=== PATIENT | male | born 1930 | race Caucasian/White ===

== ENCOUNTER 2016-08-26 02:49 | Inpatient (IN) | payer OTHER, BC ==
[2016-08-26 03:03] VITALS: BMI 24.4
--- NOTE | 2016-08-26 03:20 | PDOC ---
History of Present Illness - General History Source: Patient Exam Limitations: No Limitations - History of Present Illness Initial Comments: 08/26/16 03:57 The patient is an 86-year-old male, with a significant past medical history of asthma, CAD, HTN, and hypercholesterolemia, who presents to the ED with 3 days of sore throat, cough, chest congestion, and shortness of breath. Patient was placed on Z-Bert by PCP. Pt states that he decided to report to the ED today due to worsening shortness of breath. He also reports experiencing diarrhea, nausea , and vomiting. The patient denies any fever, chills, or abdominal pain. <Sury Noel - Last Filed: 08/26/16 06:56> - General History Source: Patient <Noel Molina - Last Filed: 08/29/16 20:21> - General Chief Complaint: Shortness of Breath Stated Complaint: SOB Time Seen by Provider: 08/26/16 03:05 Past History <Sury Noel - Last Filed: 08/26/16 06:56> - Past Medical History Anemia: No Asthma: Yes Cancer: No Cardiac Disorders: Yes (CAD) CVA: No COPD: No CHF: No Dementia: No Diabetes: No GI Disorders: Yes (POLYPS) Disorders: Yes (BPH) HTN: Yes Hypercholesterolemia: Yes Liver Disease: No Seizures: No Thyroid Disease: No - Surgical History Abdominal Surgery: Yes (RT INGUINAL HERNIA) Appendectomy: No Cardiac Surgery: Yes (STENTING X2/AORTIC ANEURSYM REPAIR) Cholecystectomy: No Lung Surgery: No Neurologic Surgery: No Orthopedic Surgery: No - Immunization History Immunization Up to Date: Yes (flu and pneumonia) - Psycho/Social/Smoking Cessation Hx Anxiety: No Suicidal Ideation: No Smoking Status: Yes Smoking History: Never smoked Have you smoked in the past 12 months: No Number of Cigarettes Smoked Daily: 6 If you are a former smoker, when did you quit?: MAR 2014 Cigars Per Day: 6 Information on smoking cessation initiated: No 'Breaking Loose' booklet given: 06/17/13 Hx Alcohol Use: No Drug/Substance Use Hx: No Substance Use Type: None Hx Substance Use Treatment: No <Noel Molina - Last Filed: 08/29/16 20:21> - Past Medical History Allergies/Adverse Reactions: Allergies Allergy/AdvReac Type Severity Reaction Status Date / Time Penicillins Allergy Mild ITCHING/KAYLEE Verified 08/26/16 03:01 H Home Medications: Ambulatory Orders Aspirin [ASA -] 81 mg PO DAILY 11/28/14 Atorvastatin Ca [Lipitor] 40 mg PO HS 11/28/14 Losartan Potassium 25 mg PO DAILY 11/28/14 Metoprolol Succinate [Toprol XL -] 25 mg PO DAILY 11/28/14 Omeprazole 20 mg PO DAILY 11/28/14 Tamsulosin HCl [Flomax -] 0.4 mg PO DAILY 11/28/14 Tiotropium [place] [Spiriva] 18 mcg IH DAILY 11/28/14 Albuterol Sulfate Inhaler - [Ventolin HFA Inhaler -] 2 inh PO Q4H PRN 01/05/15 Amlodipine Besylate [Norvasc -] 10 mg PO DAILY 01/05/15 Cilostazol [Pletal] 100 mg PO DAILY 01/05/15 Cyanocobalamin/Folic AC/Vit B6 [Foltabs 800 Tablet] 1 each PO DAILY 01/05/15 Polyethylene Glycol 3350 [Miralax 255 gm Btl -] 17 gm PO BID 01/05/15 Lactulose (Oral Use) [Cephulac -] 20 gm PO DAILY PRN #0 udc 01/12/15 Review of Systems - Review of Systems Able to Perform ROS?: Yes Comments:: 08/26/16 03:57 CONSTITUTIONAL: Absent: fever, chills, diaphoresis, generalized weakness, malaise, loss of appetite HEENT: Present: sore throat Absent: rhinorrhea, nasal congestion, mouth swelling, ear pain, eye pain, visual Changes CARDIOVASCULAR: Present: chest congestion Absent: chest pain, syncope, palpitations, irregular heart rate, lightheadedness , peripheral edema RESPIRATORY: Present: shortness of breath, cough Absent: dyspnea with exertion, orthopnea, wheezing, stridor, hemoptysis GASTROINTESTINAL: Present: nausea, vomiting, diarrhea Absent: abdominal pain, abdominal distension, constipation, melena, hematochezia GENITOURINARY: Absent: dysuria, frequency, urgency, hesitancy, hematuria, flank pain, genital pain MUSCULOSKELETAL: Absent: myalgia, arthralgia, joint swelling SKIN: Absent: rash, itching, pallor HEMATOLOGIC/IMMUNOLOGIC: Absent: easy bleeding, easy bruising, lymphadenopathy, frequent infections ENDOCRINE: Absent: unexplained weight gain, unexplained weight loss, heat intolerance, cold intolerance NEUROLOGIC: Absent: headache, focal weakness or paresthesias, dizziness, unsteady gait, seizure, mental status changes, bladder or bowel incontinence PSYCHIATRIC: Absent: anxiety, depression, suicidal or homicidal ideation, hallucinations. <Sury Noel - Last Filed: 08/26/16 06:56> *Physical Exam - Vital Signs Last Vital Signs Temp Pulse Resp BP Pulse Ox 97.3 F L 93 H 14 108/96 93 L 08/26/16 03:01 08/26/16 03:01 08/26/16 03:01 08/26/16 03:01 08/26/16 03:01 - Physical Exam Comments: 08/26/16 04:02 Well developed, well nourished. Awake and alert. No acute distress. HEENT: Normocephalic, atraumatic. PERRLA, EOMI. No conjunctival pallor. Sclera are non- icteric. Moist mucous membranes. Oropharynx is clear. NECK: Supple. Full ROM. No JVD. Carotid pulses 2+ and symmetric, without bruits. No thyromegaly. No lymphadenopathy. CARDIOVASCULAR: Regular rate and rhythm. No murmurs, rubs, or gallops. Distal pulses are 2+ and symmetric. PULMONARY: No wheezing, rales. + Rhonchi bilaterally ABDOMINAL: Soft. Non-tender. Non-distended. No rebound or guarding. No organomegaly. Normoactive bowel sounds. MUSCULOSKELETAL Normal range of motion at all joints. No bony deformities or tenderness. No CVA tenderness. EXTREMITIES: No cyanosis. No clubbing. No edema. No calf tenderness. SKIN: Warm and dry. Normal capillary refill. No rashes. No jaundice. NEUROLOGICAL: Alert, awake, appropriate. PSYCHIATRIC: Cooperative. Good eye contact. Appropriate mood and affect. <Sury Noel - Last Filed: 08/26/16 06:56> - Vital Signs Last Vital Signs Temp Pulse Resp BP Pulse Ox 97.3 F L 93 H 14 108/96 93 L 08/26/16 03:01 08/26/16 03:01 08/26/16 03:01 08/26/16 03:01 08/26/16 03:01 <Noel Molina - Last Filed: 08/29/16 20:21> Heart Score/ECG Review - ECG Intrepretation Comment:: 08/26/16 06:56 EKG was reviewed by Dr. Molina at 3:33. Impression: Sinus rhythm with occasional premature ventricular complexes. Nonspecific T abnormality. Prolonged QT. Vent. rate: 92 bpm ID interval: 148 ms QTc: 484 ms <Sury Noel - Last Filed: 08/26/16 06:56> ED Treatment Course - LABORATORY CBC & Chemistry Diagram: 08/26/16 03:38 08/26/16 03:38 - ADDITIONAL ORDERS Additional order review: 08/26/16 03:38 RBC 3.95 L MCV 98.0 H MCHC 33.0 RDW 14.3 MPV 8.9 Neutrophils % 72.5 Lymphocytes % 13.2 D Monocytes % 9.1 D Eosinophils % 4.6 H D Basophils % 0.6 D - Medications Given in the ED: ED Medications Discontinued Medications Generic Name Dose Route Start Last Admin Trade Name Freq PRN Reason Stop Dose Admin Albuterol/Ipratropium 1 amp 08/26/16 03:24 08/26/16 03:46 Duoneb - NEB 08/26/16 03:25 1 amp ONCE STA Administration Methylprednisolone Sodium Succinate 125 mg 08/26/16 03:24 08/26/16 03:45 Solu-Medrol - IVPB 08/26/16 03:25 125 mg ONCE ONE Administration <Sury Noel - Last Filed: 08/26/16 06:56> - LABORATORY CBC & Chemistry Diagram: 08/29/16 05:57 08/29/16 05:57 <Noel Molina - Last Filed: 08/29/16 20:21> Medical Decision Making - Medical Decision Making 08/29/16 20:21 Dr. Molina: The scribe's documentation has been prepared under my direction and personally reviewed by me in its entirery. I confirm that the note above accurately reflects all work, treatment, procedures, and medical decision making performed by me. <Noel Molina - Last Filed: 08/29/16 20:21> *DC/Admit/Observation/Transfer - Attestations Scribe Attestion: 08/26/16 04:03 Documentation prepared by Sury Noel, acting as medical sales consultant for Noel Molina MD. <Sury Noel - Last Filed: 08/26/16 06:56> - Discharge Dispostion Admit: Yes <Noel Molina - Last Filed: 08/29/16 20:21> Diagnosis at time of Disposition: COPD (chronic obstructive pulmonary disease)
[2016-08-26] MEDS ORDERED: methylPREDNISolone NA SUCC 125 MG/2 ML VIAL IVPB ONE (03:24)
[2016-08-26] MEDS ORDERED: ALBUTEROL SO4 2.5/IPRATROPIUM 0.5 INH SOL 3 ML VIAL.NEB. NEB STA (03:24)
[2016-08-26] MEDS ORDERED: ALBUTEROL SO4 2.5/IPRATROPIUM 0.5 INH SOL 3 ML VIAL.NEB. NEB ONE ×2 (03:35→10:43)
[2016-08-26] MEDS ORDERED: methylPREDNISolone NA SUCC 125 MG/2 ML VIAL ONE (03:35)
[2016-08-26 03:51] LABS: BASOPHIL 0.6 % (0-2.0); EOSINOPHIL 4.6 % (0-4.5); MCH 32.4 pg (25.7-33.7); MEAN PLT VOLUME 8.9 fl (7.5-11.1); NEUTROPHILS 72.5 % (42.8-82.8); PLATELET COUNT 108 K/MM3 (134-434); RDW 14.3 % (11.9-15.9); WHITE BLOOD COUNT 9.5 K/mm3 (4.0-10.0)
[2016-08-26 04:00] LABS: INR 1.07 (0.82-1.09); PROTHROMBIN TIME (PATIENT) 11.8 SEC (9.98-11.88)
[2016-08-26 04:12] LABS: ALBUMIN 3.8 g/dl (3.4-5.0); ANION GAP 10 (8-16); BILIRUBIN,TOTAL 0.9 mg/dL (0.2-1.0); CALCIUM 8.8 mg/dL (8.5-10.1); CO2 24 mmol/L (21-32); CREATININE 1.8 mg/dL (0.7-1.3); GLUCOSE,RANDOM 146 mg/dL (74-106); SGOT/AST 15 U/L (15-37); SGPT/ALT 16 U/L (12-78); TOT PROT 7.2 g/dl (6.4-8.2)
[2016-08-26 04:14] LABS: ALK PHOS 120 U/L (45-117); TROPONIN I 0.19 ng/ml (0.00-0.05)
[2016-08-26 05:14] LABS: METHEMOGLOBIN 0.6 % (0.4-1.5)
[2016-08-26 05:15] LABS: ARTERIAL BLD GAS O2 SATURATION 94.7 % (90-98.9); ARTERIAL BLOOD GAS BASE EXCESS -3.6 meq/l (-2-2); ARTERIAL BLOOD GAS HCO3 20.2 meq/L (22-26); ARTERIAL BLOOD GAS PO2 70.6 mmHg (68-100); ARTERIAL BLOOD GAS pH 7.39 (7.35-7.45)
[2016-08-26 05:17] LABS: ALLENS TEST POSITIVE; ART PUNCT SITE RIGHT BRACHIAL; LPM/O2% ROOM AIR; PT. ON O2? NO
--- NOTE | 2016-08-26 05:43 | HP ---
CHIEF COMPLAINT: SOB with wet cough PCP: Jazmin HISTORY OF PRESENT ILLNESS: This is a 86 yo man with PMH CAD (stent x2 1997), asthma, BPH, CKD, HTN, aortic aneurysm repair and fem-pop bypass 07/07/15 who presents today with increased SOB worsening over 3-4 days. He has been experiencing a wet non-productive cough with the SOB. He was evaluated by his PMD and given a Z-pack for CAP. He has taken 3 days of the Z-pack and has not been getting better. He denies fever, chest pain, decrease in exercise tolerance , nausea, vomiting or dizziness. ER course was notable for: (1) trop- 0.19 (2) CXR with left pleural effusion Recent Travel: denies PAST MEDICAL HISTORY: see HPI PAST SURGICAL HISTORY: see HPI Social History: Smokin pack years quit 14 days ago Alcohol: denies Drugs: denies Family History: Allergies Penicillins Allergy (Mild, Verified 08/26/16 03:01) ITCHING/RASH HOME MEDICATIONS: Home Medications 3 Medication Instructions Recorded Aspirin [ASA -] 81 mg PO DAILY 11/28/14 Atorvastatin Ca [Lipitor] 40 mg PO HS 11/28/14 Losartan Potassium 25 mg PO DAILY 11/28/14 Metoprolol Succinate [Toprol XL -] 25 mg PO DAILY 11/28/14 Omeprazole 20 mg PO DAILY 11/28/14 Tamsulosin HCl [Flomax -] 0.4 mg PO DAILY 11/28/14 Tiotropium [place] [Spiriva] 18 mcg IH DAILY 11/28/14 Albuterol Sulfate Inhaler - 2 inh PO Q4H PRN 01/05/15 [Ventolin HFA Inhaler -] Amlodipine Besylate [Norvasc -] 10 mg PO DAILY 01/05/15 Cilostazol [Pletal] 100 mg PO DAILY 01/05/15 Cyanocobalamin/Folic AC/Vit B6 1 each PO DAILY 01/05/15 [Foltabs 800 Tablet] Polyethylene Glycol 3350 [Miralax 17 gm PO BID 01/05/15 255 gm Btl -] Lactulose (Oral Use) [Cephulac -] 20 gm PO DAILY PRN #0 udc 01/12/15 REVIEW OF SYSTEMS CONSTITUTIONAL: Absent: fever, chills, diaphoresis, generalized weakness, malaise, loss of appetite, weight change HEENT: Present- throat pain Absent: rhinorrhea, nasal congestion, throat swelling, difficulty swallowing, mouth swelling, ear pain, eye pain, visual changes CARDIOVASCULAR: Present- RLE peripheral edema Absent: chest pain, syncope, palpitations, irregular heart rate, lightheadedness , RESPIRATORY: Present- cough, shortness of breath, wheezing, chest congestion Absent: dyspnea with exertion, orthopnea, stridor, hemoptysis GASTROINTESTINAL: Absent: abdominal pain, abdominal distension, nausea, vomiting, diarrhea, constipation, melena, hematochezia GENITOURINARY: Absent: dysuria, frequency, urgency, hesitancy, hematuria, flank pain, genital pain MUSCULOSKELETAL: Absent: myalgia, arthralgia, joint swelling, back pain, neck pain SKIN: Absent: rash, itching, pallor HEMATOLOGIC/IMMUNOLOGIC: Absent: easy bleeding, easy bruising, lymphadenopathy, frequent infections ENDOCRINE: Absent: unexplained weight gain, unexplained weight loss, heat intolerance, cold intolerance NEUROLOGIC: Absent: headache, focal weakness or paresthesias, dizziness, unsteady gait, seizure, mental status changes, bladder or bowel incontinence PSYCHIATRIC: Absent: anxiety, depression, suicidal or homicidal ideation, hallucinations. PHYSICAL EXAMINATION Vital Signs - 24 hr 3 // 03:01 Temperature 97.3 F L Pulse Rate 93 H Respiratory 14 Rate Blood Pressure 108/96 O2 Sat by Pulse 93 L Oximetry (%) GENERAL: Awake, alert, and fully oriented, in no acute distress. HEAD: Normal with no signs of trauma. EYES: Pupils equal, round and reactive to light, extraocular movements intact, sclera anicteric, conjunctiva clear. No lid lag. EARS, NOSE, THROAT: Ears normal, nares patent, oropharynx clear without exudates. Moist mucous membranes. NECK: Normal range of motion, supple without lymphadenopathy, JVD, or masses. LUNGS: Diminished breath sounds on left lower [place]. Diffuse wheezes, and diffuse crackles. Prolonged expiratory phase. No accessory muscle use. HEART: Regular rate and rhythm, normal S1 and S2 without murmur, rub or gallop. ABDOMEN: Soft, nontender, not distended, normoactive bowel sounds, no guarding, no rebound, no masses. No hepatomegaly or splenomegaly. MUSCULOSKELETAL: Normal range of motion at all joints. No bony deformities or tenderness. No CVA tenderness. UPPER EXTREMITIES: 2+ pulses, warm, well-perfused. No cyanosis. No clubbing. No peripheral edema. LOWER EXTREMITIES: 2+ pulses, warm, well-perfused. No calf tenderness. RLE 2+ peripheral edema. NEUROLOGICAL: Cranial nerves II-XII intact. Normal speech. Normal gait. PSYCHIATRIC: Cooperative. Good eye contact. Appropriate mood and affect. SKIN: Warm, dry, normal turgor, no rashes or lesions noted, normal capillary refill. Surgical scar to midline abdomen and RLE. Laboratory Results - last 24 hr 3 08/26/16 08/26/16 08/26/16 03:38 03:38 03:38 WBC 9.5 D RBC 3.95 L Hgb 12.8 Hct 38.7 MCV 98.0 H MCHC 33.0 RDW 14.3 Plt Count 108 L MPV 8.9 Neutrophils % 72.5 Lymphocytes % 13.2 D Monocytes % 9.1 D Eosinophils % 4.6 H D Basophils % 0.6 D INR 1.07 Puncture Site ABG pH ABG pCO2 at Pt Temp ABG pO2 at Pt Temp ABG HCO3 ABG O2 Sat (Measured) ABG O2 Content ABG Base Excess Devan Test Carboxyhemoglobin Methemoglobin Oxygen Flow Rate PEEP Sodium 141 Potassium 4.4 Chloride 107 Carbon Dioxide 24 Anion Gap 10 BUN 25 H D Creatinine 1.8 H D Creat Clearance w eGFR 36.13 Random Glucose 146 H Calcium 8.8 Total Bilirubin 0.9 D AST 15 D ALT 16 D Alkaline Phosphatase 120 H D Creatine Kinase 116 Troponin I 0.19 H D Total Protein 7.2 D Albumin 3.8 D 3 08/26/16 08/26/16 05:00 05:00 WBC RBC Hgb Hct MCV MCHC RDW Plt Count MPV Neutrophils % Lymphocytes % Monocytes % Eosinophils % Basophils % INR Puncture Site Right brachial ABG pH 7.39 ABG pCO2 at Pt Temp 34.2 L ABG pO2 at Pt Temp 70.6 D ABG HCO3 20.2 L ABG O2 Sat (Measured) 94.7 ABG O2 Content 15.8 ABG Base Excess -3.6 L Devan Test Positive Carboxyhemoglobin 1.9 Methemoglobin 0.6 Oxygen Flow Rate Room air PEEP 0.0 Sodium Potassium Chloride Carbon Dioxide Anion Gap BUN Creatinine Creat Clearance w eGFR Random Glucose Calcium Total Bilirubin AST ALT Alkaline Phosphatase Creatine Kinase Troponin I Total Protein Albumin CXR wet read by me- Left pleural effusion. Surgical clips in place. ASSESSMENT/PLAN: A: This is a 86 yo man with PMH CAD (stent x2 1997), asthma, BPH, CKD, HTN, aortic aneurysm repair and fem-pop bypass 07/07/15 who presents today with increased SOB worsening over 3-4 days. He has been experiencing a wet non- productive cough with the SOB. He was evaluated by his PMD and given a Z-pack for CAP. He has taken 3 days of the Z-pack and has not been getting better. He denies fever, chest pain, decrease in exercise tolerance, nausea, vomiting or dizziness. P: 1. CAP vs CHF exacerbation - echo - trend trops- initial 0.19 - BNP - increase home Lasix to 20mg daily- qod at home - telemetry - Empiric Levaquin- renal dose - ASA 81mg - Metoprolol ER 25mg daily - losartan 25mg daily - Cards consult - BNP pending 2. Asthma - methylpred 60 tid - duonebs q6h - albuterol q4 prn 3. RLE edema - duplex doppler - cilostazol 100mg bid 4. HTN - controlled - Losartan 25mg - Metoprolol ER 25mg - Norvasc 10mg - lasix 20 mg daily 5. BPH - flomax 6. HLD - Lipitor 40mg 7. F/E/N - Low Na diet - replete prn 8. PPX - heparin - omeprazole 40mg Dispo- pt requires inpatient evaluation of acute medical conditions. Code Status: FULL CODE Visit type - Emergency Visit Emergency Visit: Yes Care time: The patient presented to the Emergency Department on the above date and was hospitalized for further evaluation of their emergent condition. - New Patient This patient is new to me today: Yes Date on this admission: 08/26/16 - Critical Care Critical Care patient: No
[2016-08-26] MEDS ORDERED: ASPIRIN 81 MG CHEWABLE TABLETS PO ONE (06:14)
[2016-08-26] MEDS ORDERED: CEFTRIAXONE 1 GM in DEXTROSE 5%-WATER - 50 ML IVPB ONE (06:15)
[2016-08-26] MEDS ORDERED: LEVOFLOXACIN 500 MG IVPB 100 ML IVPB ONE ×2 (06:33→06:40)
[2016-08-26] MEDS ORDERED: ASPIRIN 81 MG CHEWABLE TABLETS ONE (06:34)
[2016-08-26] MEDS ORDERED: ALBUTEROL SO4 0.083% IH SOL 2.5 MG/3 ML VIAL.NEB. NEB PRN (07:09)
[2016-08-26] MEDS ORDERED: [UNRECOGNIZED DRUG - OTHER] PO SCH (10:00)
[2016-08-26] MEDS ORDERED: FUROSEMIDE 20 MG TABLET (FP) PO SCH (10:00)
[2016-08-26] MEDS ORDERED: FOLIC AC PO SCH (10:00)
[2016-08-26] MEDS ORDERED: VIT B6 PO SCH (10:00)
[2016-08-26] MEDS ORDERED: LEVOFLOXACIN 750 MG IVPB 150 ML IVPB SCH ×2 (10:00→16:15)
[2016-08-26] MEDS ORDERED: CYANOCOBALAMIN PO SCH (10:00)
--- NOTE | 2016-08-26 10:26 | EKG ---
Test Reason : Blood Pressure : / mmHG Vent. Rate : 092 BPM Atrial Rate : 092 BPM P-R Int : 148 ms QRS Dur : 104 ms QT Int : 392 ms P-R-T Axes : 074 035 029 degrees QTc Int : 484 ms SINUS RHYTHM WITH OCCASIONAL PREMATURE VENTRICULAR COMPLEXES NONSPECIFIC ST ABNORMALITY PROLONGED QT ABNORMAL ECG WHEN COMPARED WITH ECG OF 07-JAN-2015 09:10, NO SIGNIFICANT CHANGE WAS FOUND Confirmed by ROSALVA BIRCH MD ([id number]) on 08/26/2016 10:25:50 AM Referred By: Confirmed By:ROSALVA BIRCH MD
[2016-08-26] MEDS: methylPREDNISolone NA SUCC 125 MG/2 ML VIAL IVPB SCH ×2 (10:50→17:15)
[2016-08-26] MEDS: ACLIDINIUM BROMIDE 400 MCG/INH AERO.POWD IH SCH ×2 (10:50→22:34)
[2016-08-26] MEDS: ALBUTEROL SO4 2.5/IPRATROPIUM 0.5 INH SOL 3 ML VIAL.NEB. NEB SCH ×2 (10:50→17:13)
[2016-08-26] MEDS: amLODIPine BESYLATE 10 MG TABLET (FP) PO SCH (10:50)
[2016-08-26] MEDS: HEPARIN NA (PORCINE) 5,000 UNITS/ML 1ML VIAL SQ SCH ×2 (10:50→22:35)
[2016-08-26] MEDS: TAMSULOSIN HCL 0.4 MG CAP.ER.24H (FP) PO SCH (10:50)
[2016-08-26] MEDS: CILOSTAZOL 100 MG TABLET PO SCH ×2 (10:50→22:34)
[2016-08-26] MEDS: METOPROLOL SUCCINATE 25 MG TAB.SR.24H (FP) PO SCH (10:50)
[2016-08-26] MEDS: LOSARTAN POTASSIUM 25 MG TABLET PO SCH (10:50)
[2016-08-26] MEDS: PANTOPRAZOLE 20 MG TABLET (FP) PO SCH (10:50)
[2016-08-26] MEDS: FUROSEMIDE 40 MG/4 ML INJECTABLE VIAL IVPUSH SCH (15:09)
[2016-08-26] MEDS ORDERED: CEFTRIAXONE 1 GM in DEXTROSE 5%-WATER - 50 ML IVPB SCH (16:15)
[2016-08-26] MEDS ORDERED: AZITHROMYCIN IVPB 500 MG in DEXTROSE 5%-WATER - 250 ML IVPB SCH (16:30)
[2016-08-26] MEDS: AZITHROMYCIN IVPB 500 MG/250 ML D5W PRE-DOCKED IVPB SCH (17:15)
[2016-08-26] MEDS: cefTRIAXone 1 GM/50 ML BAG (PRE-DOCKED) IVPB SCH (17:15)
[2016-08-26] MEDS: ATORVASTATIN CA 40 MG TABLET (FP) PO SCH (22:35)
[2016-08-26 23:34] LABS: URINE APPEARANCE CLEAR; URINE BILIRUBIN NEGATIVE (NEGATIVE); URINE COLOR STRAW; URINE GLUCOSE (UA) 3+ (NEGATIVE); URINE KETONE NEGATIVE (NEGATIVE); URINE LEUK ESTERASE NEGATIVE (NEGATIVE); URINE NITRITE NEGATIVE (NEGATIVE); URINE PROTEIN NEGATIVE (NEGATIVE); URINE UROBILINOGEN NEGATIVE E.U./dl (0.2-1.0)
[2016-08-26 23:47] LABS: URINE BLOOD 2+ (NEGATIVE)
[2016-08-26 23:48] LABS: URINE RBC <1 HPF /hpf (0-3); URINE WBC <1 HPF /hpf (3-5)
[2016-08-26 23:49] LABS: URINE MUCUS RARE
[2016-08-27] MEDS: ALBUTEROL SO4 2.5/IPRATROPIUM 0.5 INH SOL 3 ML VIAL.NEB. NEB SCH ×3 (00:53→11:06)
[2016-08-27] MEDS: methylPREDNISolone NA SUCC 125 MG/2 ML VIAL IVPB SCH ×3 (01:56→17:22)
[2016-08-27] MEDS ORDERED: PT OWN MED DRAWER 7, Y5N ONE (08:43)
[2016-08-27] MEDS: cefTRIAXone 1 GM/50 ML BAG (PRE-DOCKED) IVPB SCH (09:19)
[2016-08-27] MEDS: AZITHROMYCIN IVPB 500 MG/250 ML D5W PRE-DOCKED IVPB SCH (09:19)
[2016-08-27] MEDS: FUROSEMIDE 40 MG/4 ML INJECTABLE VIAL IVPUSH SCH (09:19)
[2016-08-27] MEDS: amLODIPine BESYLATE 10 MG TABLET (FP) PO SCH (09:19)
[2016-08-27] MEDS: TAMSULOSIN HCL 0.4 MG CAP.ER.24H (FP) PO SCH (09:20)
[2016-08-27] MEDS: LOSARTAN POTASSIUM 25 MG TABLET PO SCH (09:20)
[2016-08-27] MEDS: METOPROLOL SUCCINATE 25 MG TAB.SR.24H (FP) PO SCH (09:20)
[2016-08-27] MEDS: CILOSTAZOL 100 MG TABLET PO SCH ×2 (09:20→21:38)
[2016-08-27] MEDS: PANTOPRAZOLE 20 MG TABLET (FP) PO SCH (09:20)
[2016-08-27] MEDS: HEPARIN NA (PORCINE) 5,000 UNITS/ML 1ML VIAL SQ SCH ×2 (09:20→21:38)
[2016-08-27] MEDS: ACLIDINIUM BROMIDE 400 MCG/INH AERO.POWD IH SCH ×2 (09:20→21:38)
[2016-08-27] MEDS ORDERED: guaiFENesin/D-METHORPHAN HB 10 ML UNIT-DOSE CUPS PO PRN (11:14)
--- NOTE | 2016-08-27 13:11 | PN ---
Progress Note, Physician History of Present Illness: Pt with cough, hadr to bring it up Pt w/o CP, palp, SOB, abd pain - Current Medication List Current Medications: Active Medications Aclidinium [place] (Tudorza -) 1 puff IH BID [facility] Last Admin: 08/27/16 09:20 Dose: 1 puff Albuterol Sulfate (Ventolin 0.083% Nebulizer Soln -) 1 amp NEB Q4H PRN PRN Reason: SHORT OF BREATH/WHEEZING Albuterol/Ipratropium (Duoneb -) 1 amp NEB QIDR [facility] Last Admin: 08/27/16 11:06 Dose: 1 amp Amlodipine Besylate (Norvasc -) 10 mg PO DAILY [facility] Last Admin: 08/27/16 09:19 Dose: 10 mg Atorvastatin [place] (Lipitor -) 40 mg PO HS [facility] Last Admin: 08/26/16 22:35 Dose: 40 mg Azithromycin (Zithromax 500mg Ivpb (Pre-Docked)) 500 mg IVPB DAILY [facility] Last Admin: 08/27/16 09:19 Dose: 500 mg Ceftriaxone Sodium (Rocephin 1gm Ivpb (Pre-Docked)) 1 gm IVPB DAILY [facility] Last Admin: 08/27/16 09:19 Dose: 1 gm Cilostazol (Pletal -) 100 mg PO BID [facility] Last Admin: 08/27/16 09:20 Dose: 100 mg Docusate Sodium (Colace -) 100 mg PO BID [facility] Furosemide (Lasix Injection -) 40 mg IVPUSH DAILY [facility] Last Admin: 08/27/16 09:19 Dose: 40 mg Guaifenesin (Robitussin Dm -) 10 ml PO Q4H PRN PRN Reason: COUGH Last Admin: 08/27/16 12:29 Dose: 10 ml Heparin Sodium (Porcine) (Heparin -) 5,000 unit SQ BID [facility] Last Admin: 08/27/16 09:20 Dose: 5,000 unit Losartan Potassium (Cozaar -) 25 mg PO DAILY [facility] Last Admin: 08/27/16 09:20 Dose: 25 mg Methylprednisolone Sodium Succinate (Solu-Medrol -) 60 mg IVPB Q8H-IV [facility] Last Admin: 08/27/16 09:20 Dose: 60 mg Metoprolol Succinate (Toprol Xl -) 25 mg PO DAILY [facility] Last Admin: 08/27/16 09:20 Dose: 25 mg Pantoprazole Sodium (Protonix -) 20 mg PO DAILY [facility] Last Admin: 08/27/16 09:20 Dose: 20 mg Tamsulosin HCl (Flomax -) 0.4 mg PO DAILY@0830 [facility] Last Admin: 08/27/16 09:20 Dose: 0.4 mg - Objective Vital Signs: Vital Signs Temperature 97.9 F 08/27/16 10:58 Pulse Rate 91 H 08/27/16 11:06 Respiratory Rate 20 08/27/16 10:58 Blood Pressure 121/62 08/27/16 10:58 O2 Sat by Pulse Oximetry (%) 97 08/27/16 11:06 Constitutional: Yes: No Distress, Calm Cardiovascular: Yes: Regular Rate and Rhythm, S1, S2 Respiratory: Yes: Regular, Rhonchi (bilat.) Gastrointestinal: Yes: Normal Bowel Sounds, Soft. No: Tenderness Edema: No Neurological: Yes: Alert, Oriented Psychiatric: Yes: Alert, Oriented Labs: INR, PTT INR 1.07 (0.82-1.09) 08/26/16 03:38 Yesterday labs were reviewed. Today labs are pending - ....Imaging Chest X-ray: Report Reviewed Problem List - Problems (1) Acute exacerbation of chronic obstructive pulmonary disease (COPD) Code(s): J44.1 - CHRONIC OBSTRUCTIVE PULMONARY DISEASE W (ACUTE) EXACERBATION (2) CAD (coronary artery disease) Code(s): I25.10 - ATHSCL HEART DISEASE OF [place] CORONARY ARTERY W/O ANG PCTRS Qualifiers: Coronary Disease-Associated Artery/Lesion type: [place] artery [place] vs. transplanted heart: [place] heart Associated angina: without angina Qualified Code(s): I25.10 - Atherosclerotic heart disease of [place] coronary artery without angina pectoris (3) Chronic kidney disease Code(s): N18.9 - CHRONIC KIDNEY DISEASE, UNSPECIFIED Qualifiers: Chronic kidney disease stage: unspecified stage Qualified Code(s): N18.9 - Chronic kidney disease, unspecified (4) History of abdominal aortic aneurysm (AAA) repair Code(s): Z98.890 - OTHER SPECIFIED POSTPROCEDURAL STATES (5) Hypertension Code(s): I10 - ESSENTIAL (PRIMARY) HYPERTENSION (6) Status post femoral-popliteal bypass surgery Code(s): Z95.828 - PRESENCE OF OTHER VASCULAR IMPLANTS AND GRAFTS (7) BPH (benign prostatic hyperplasia) Code(s): N40.0 - BENIGN PROSTATIC HYPERPLASIA WITHOUT LOWER URINRY TRACT SYMP Assessment/Plan Pt was transferred to my service today. Pt on IV abtx, steroids, lasix Pt was seen yesterday by Cardio (Dr. Dias) per patient. Pulmonary consult. I ordered labs for today. Treatment was reviewed with pt and sister (at bedside). AM labs.
[2016-08-27] MEDS: guaiFENesin/D-METHORPHAN HB 10 ML UNIT-DOSE CUPS PO SCH ×3 (13:20→21:37)
[2016-08-27 13:42] LABS: MCH 32.2 pg (25.7-33.7); MEAN CELL VOLUME 97.7 fl (80-96); MEAN PLT VOLUME 8.7 fl (7.5-11.1); PLATELET COUNT 122 K/MM3 (134-434); RDW 13.8 % (11.9-15.9); WHITE BLOOD COUNT 14.5 K/mm3 (4.0-10.0)
[2016-08-27 14:09] LABS: ALBUMIN 3.7 g/dl (3.4-5.0); ANION GAP 15 (8-16); CALCIUM 8.8 mg/dL (8.5-10.1); CO2 19 mmol/L (21-32); CREATININE 2.3 mg/dL (0.7-1.3); SGOT/AST 19 U/L (15-37); SGPT/ALT 19 U/L (12-78)
[2016-08-27 14:12] LABS: ALK PHOS 120 U/L (45-117); BILIRUBIN,TOTAL 0.5 mg/dL (0.2-1.0); TOT PROT 7.1 g/dl (6.4-8.2)
[2016-08-27 14:42] LABS: GLUCOSE,RANDOM 355 mg/dL (74-106)
--- NOTE | 2016-08-27 14:48 | CON.PULM ---
Consult Consult Specialty:: PULM/CCM Referred by:: SHA Reason for Consultation:: SOB / cough - History of Present Illness Chief Complaint: SOB / cough History of Present Illness: 86 M, CAD, PCI x 2 1997, COPD, BPH, CKD, HTN, aortic aneurysm repair , and fem-pop bypass 07/07/15. Admitted via the ER due to SOB over the past 4 days. Reports (+) cough that is not resolving. No travel history or sick contacts. Was given a Zpack as an outpatient. No fever or chills. No night sweats or hemoptysis. He denies chest pain. No nausea, vomiting, or dizziness. CT Chest 05/24/16 : Moderate COPD / no acute process CXR: No acute process. - History Source History Provided By: Patient Limitations to Obtaining History: No Limitations - Past Medical History Cardio/Vascular: Yes: Aneurysm (of Abdominl Aorta), CAD (2 stents) Pulmonary: Yes: COPD, Pneumonia (L lung) Gastrointestinal: Yes: Constipation, GI Bleed, Other (colon polyps) Renal/: Yes: BPH Infectious Disease: Yes: Other (pneumonia) - Past Surgical History Past Surgical History: Yes: Hernia Repair, AAA Repair - Alcohol/Substance Use Hx Alcohol Use: No History of Substance Use: reports: None - Smoking History Smoking history: Never smoked Have you smoked in the past 12 months: No Aproximately how many cigarettes per day: 6 If you are a former smoker, when did you quit?: MAR 2014 - Social History Usual Living Arrangement: With Spouse ADL: Independent Occupation: retired- worked for city History of Recent Travel: No Home Medications - Allergies Allergies/Adverse Reactions: Allergies Allergy/AdvReac Type Severity Reaction Status Date / Time Penicillins Allergy Mild ITCHING/KAYLEE Verified 08/26/16 03:01 H - Home Medications Home Medications: Ambulatory Orders Aspirin [ASA -] 81 mg PO DAILY 11/28/14 Atorvastatin Ca [Lipitor] 40 mg PO HS 11/28/14 Losartan Potassium 25 mg PO DAILY 11/28/14 Metoprolol Succinate [Toprol XL -] 25 mg PO DAILY 11/28/14 Omeprazole 20 mg PO DAILY 11/28/14 Tamsulosin HCl [Flomax -] 0.4 mg PO DAILY 11/28/14 Tiotropium [place] [Spiriva] 18 mcg IH DAILY 11/28/14 Albuterol Sulfate Inhaler - [Ventolin HFA Inhaler -] 2 inh PO Q4H PRN 01/05/15 Amlodipine Besylate [Norvasc -] 10 mg PO DAILY 01/05/15 Cilostazol [Pletal] 100 mg PO DAILY 01/05/15 Cyanocobalamin/Folic AC/Vit B6 [Foltabs 800 Tablet] 1 each PO DAILY 01/05/15 Polyethylene Glycol 3350 [Miralax 255 gm Btl -] 17 gm PO BID 01/05/15 Lactulose (Oral Use) [Cephulac -] 20 gm PO DAILY PRN #0 udc 01/12/15 Review of Systems - Review of Systems Constitutional: denies: Chills, Fever, Night Sweats Eyes: reports: No Symptoms HENT: reports: No Symptoms Neck: reports: No Symptoms Cardiovascular: reports: Shortness of Breath. denies: Chest Pain, Edema, Palpitations Respiratory: reports: Cough, SOB, SOB on Exertion. denies: Hemoptysis, Orthopnea, Wheezing Gastrointestinal: reports: No Symptoms Genitourinary: reports: No Symptoms Breasts: reports: No Symptoms Reported Musculoskeletal: reports: No Symptoms Integumentary: reports: No Symptoms Neurological: reports: No Symptoms Endocrine: reports: No Symptoms Hematology/Lymphatic: reports: No Symptoms Psychiatric: reports: No Symptoms Physical Exam Vital Sings: Vital Signs Temperature 97.5 F L 08/27/16 14:40 Pulse Rate 86 08/27/16 14:40 Respiratory Rate 20 08/27/16 14:40 Blood Pressure 117/54 08/27/16 14:40 O2 Sat by Pulse Oximetry (%) 97 08/27/16 11:06 Constitutional: Yes: Well Nourished, No Distress Eyes: Yes: Conjunctiva Clear, EOM Intact HENT: Yes: Atraumatic, Normocephalic Neck: Yes: Supple, Trachea Midline Cardiovascular: Yes: Regular Rate and Rhythm Respiratory: Yes: Cough, Diminished, On Nasal O2, Rhonchi. No: Accessory Muscle Use, Rales, Stridor, Tachypnea, Wheezes ...Inspection: Yes: WNL ...Clubbing: No Gastrointestinal: Yes: Normal Bowel Sounds, Soft Renal/: Yes: WNL Musculoskeletal: Yes: WNL Extremities: Yes: WNL Edema: No Peripheral Pulses WNL: Yes Integumentary: Yes: WNL Neurological: Yes: WNL, Alert, Oriented ...Motor Strength: WNL Psychiatric: Yes: WNL, Alert, Oriented Labs: CBC, BMP 08/27/16 13:00 08/27/16 13:00 ABG Results ABG pH 7.39 (7.35-7.45) 08/26/16 05:00 ABG pCO2 at Pt Temp 34.2 mmHg (35-45) L 08/26/16 05:00 ABG pO2 at Pt Temp 70.6 mmHg (68-100) D 08/26/16 05:00 ABG HCO3 20.2 meq/L (22-26) L 08/26/16 05:00 ABG O2 Sat (Measured) 94.7 % (90-98.9) 08/26/16 05:00 ABG O2 Content 15.8 % vol (15-22) 08/26/16 05:00 ABG Base Excess -3.6 meq/l (-2-2) L 08/26/16 05:00 Imaging - Results Chest X-ray: Report Reviewed, Image Reviewed Problem List - Problems (1) COPD (chronic obstructive pulmonary disease) Code(s): J44.9 - CHRONIC OBSTRUCTIVE PULMONARY DISEASE, UNSPECIFIED (2) Abdominal aortic aneurysm Code(s): I71.4 - ABDOMINAL AORTIC ANEURYSM, WITHOUT RUPTURE Qualifiers: Presence of rupture: without rupture Qualified Code(s): I71.4 - Abdominal aortic aneurysm, without rupture (3) CAD (coronary artery disease) Code(s): I25.10 - ATHSCL HEART DISEASE OF [place] CORONARY ARTERY W/O ANG PCTRS Qualifiers: Coronary Disease-Associated Artery/Lesion type: [place] artery [place] vs. transplanted heart: [place] heart Associated angina: without angina Qualified Code(s): I25.10 - Atherosclerotic heart disease of [place] coronary artery without angina pectoris (4) COPD exacerbation Code(s): J44.1 - CHRONIC OBSTRUCTIVE PULMONARY DISEASE W (ACUTE) EXACERBATION (5) Chronic kidney disease Code(s): N18.9 - CHRONIC KIDNEY DISEASE, UNSPECIFIED Qualifiers: Chronic kidney disease stage: unspecified stage Qualified Code(s): N18.9 - Chronic kidney disease, unspecified (6) Cough Code(s): R05 - COUGH (7) Enlarged prostate with lower urinary tract symptoms (LUTS) Code(s): N40.1 - BENIGN PROSTATIC HYPERPLASIA WITH LOWER URINARY TRACT SYMP (8) Hyperlipidemia Code(s): E78.5 - HYPERLIPIDEMIA, UNSPECIFIED Qualifiers: Hyperlipidemia type: Pure hypercholesterolemia (9) Hypertension Code(s): I10 - ESSENTIAL (PRIMARY) HYPERTENSION (10) Left lumbar pain Code(s): M54.5 - LOW BACK PAIN (11) Peripheral artery disease Code(s): I73.9 - PERIPHERAL VASCULAR DISEASE, UNSPECIFIED (12) Status post coronary artery stent placement Code(s): Z95.5 - PRESENCE OF CORONARY ANGIOPLASTY IMPLANT AND GRAFT Assessment/Plan Tudorza BID IV Medrol O2 as needed BD TX VTE prophylaxis No smoking Will follow Thank you. Dr Reynoso.
[2016-08-27] MEDS: ALBUTEROL SO4 0.083% IH SOL 2.5 MG/3 ML VIAL.NEB. NEB SCH (17:13)
[2016-08-27] MEDS: ATORVASTATIN CA 40 MG TABLET (FP) PO SCH (21:38)
[2016-08-27] MEDS: DOCUSATE SODIUM 100 MG CAPSULE (FP) PO SCH (21:38)
[2016-08-28] MEDS: guaiFENesin/D-METHORPHAN HB 10 ML UNIT-DOSE CUPS PO SCH ×6 (01:18→22:02)
[2016-08-28] MEDS: methylPREDNISolone NA SUCC 125 MG/2 ML VIAL IVPB SCH ×3 (02:19→22:01)
[2016-08-28] MEDS: INSULIN SLIDING SCALE (NOVOLOG) 1 VIAL SQ SCH ×4 (06:08→22:02)
[2016-08-28] MEDS: ALBUTEROL SO4 0.083% IH SOL 2.5 MG/3 ML VIAL.NEB. NEB SCH ×5 (06:30→23:31)
[2016-08-28 08:08] LABS: MEAN CELL VOLUME 97.1 fl (80-96); MEAN PLT VOLUME 9.1 fl (7.5-11.1); PLATELET COUNT 113 K/MM3 (134-434); RDW 14.2 % (11.9-15.9); WHITE BLOOD COUNT 13.1 K/mm3 (4.0-10.0)
[2016-08-28 08:12] LABS: ALBUMIN 3.2 g/dl (3.4-5.0); ALK PHOS 104 U/L (45-117); ANION GAP 10 (8-16); BILIRUBIN,TOTAL 0.3 mg/dL (0.2-1.0); CALCIUM 8.7 mg/dL (8.5-10.1); CO2 24 mmol/L (21-32); CREATININE 2.2 mg/dL (0.7-1.3); GLUCOSE,RANDOM 165 mg/dL (74-106); SGOT/AST 22 U/L (15-37); SGPT/ALT 20 U/L (12-78); TOT PROT 6.3 g/dl (6.4-8.2)
[2016-08-28] MEDS: amLODIPine BESYLATE 10 MG TABLET (FP) PO SCH (09:45)
[2016-08-28] MEDS: PANTOPRAZOLE 20 MG TABLET (FP) PO SCH (09:45)
[2016-08-28] MEDS: TAMSULOSIN HCL 0.4 MG CAP.ER.24H (FP) PO SCH (09:45)
[2016-08-28] MEDS: METOPROLOL SUCCINATE 25 MG TAB.SR.24H (FP) PO SCH (09:46)
[2016-08-28] MEDS: LOSARTAN POTASSIUM 25 MG TABLET PO SCH (09:46)
[2016-08-28] MEDS: HEPARIN NA (PORCINE) 5,000 UNITS/ML 1ML VIAL SQ SCH ×2 (09:46→22:02)
[2016-08-28] MEDS: DOCUSATE SODIUM 100 MG CAPSULE (FP) PO SCH ×2 (09:46→22:02)
[2016-08-28] MEDS: CILOSTAZOL 100 MG TABLET PO SCH ×2 (09:46→22:03)
[2016-08-28] MEDS: ACLIDINIUM BROMIDE 400 MCG/INH AERO.POWD IH SCH ×2 (09:47→22:05)
[2016-08-28] MEDS: AZITHROMYCIN IVPB 500 MG/250 ML D5W PRE-DOCKED IVPB SCH (09:47)
[2016-08-28] MEDS: cefTRIAXone 1 GM/50 ML BAG (PRE-DOCKED) IVPB SCH (11:37)
--- NOTE | 2016-08-28 15:34 | CON.CARD ---
Consult Consult Specialty:: cardiology Reason for Consultation:: cough; hx CHF - History of Present Illness Chief Complaint: Pt A&Ox3; no chest pain; +cough and SOB History of Present Illness: The patient is an 86-year-old whte male, with a significant past medical history of asthma, CAD, HTN, diastolic CHF (2015 ECHO) and hypercholesterolemia , who presents to the ED with 3 days of sore throat, cough, chest congestion, and shortness of breath. Patient was placed on Z-Bert by PCP. Pt states that he decided to report to the ED today due to worsening shortness of breath. He also reports experiencing diarrhea, nausea, and vomiting. The patient denies any fever, chills, or abdominal pain. - History Source History Provided By: Patient, Medical Record Limitations to Obtaining History: No Limitations - Past Medical History Cardio/Vascular: Yes: Aneurysm (of Abdominl Aorta), CAD (2 stents) Pulmonary: Yes: COPD, Pneumonia (L lung) Gastrointestinal: Yes: Constipation, GI Bleed, Other (colon polyps) Renal/: Yes: BPH Infectious Disease: Yes: Other (pneumonia) - Past Surgical History Past Surgical History: Yes: Hernia Repair, AAA Repair - Alcohol/Substance Use Hx Alcohol Use: No History of Substance Use: reports: None - Smoking History Smoking history: Never smoked Have you smoked in the past 12 months: No Aproximately how many cigarettes per day: 6 If you are a former smoker, when did you quit?: MAR 2014 - Social History Usual Living Arrangement: With Spouse ADL: Independent Occupation: retired- worked for city History of Recent Travel: No Home Medications - Allergies Allergies/Adverse Reactions: Allergies Allergy/AdvReac Type Severity Reaction Status Date / Time Penicillins Allergy Mild ITCHING/KAYLEE Verified 08/26/16 03:01 H - Home Medications Home Medications: Ambulatory Orders Aspirin [ASA -] 81 mg PO DAILY 11/28/14 Atorvastatin Ca [Lipitor] 40 mg PO HS 11/28/14 Losartan Potassium 25 mg PO DAILY 11/28/14 Metoprolol Succinate [Toprol XL -] 25 mg PO DAILY 11/28/14 Omeprazole 20 mg PO DAILY 11/28/14 Tamsulosin HCl [Flomax -] 0.4 mg PO DAILY 11/28/14 Tiotropium [place] [Spiriva] 18 mcg IH DAILY 11/28/14 Albuterol Sulfate Inhaler - [Ventolin HFA Inhaler -] 2 inh PO Q4H PRN 01/05/15 Amlodipine Besylate [Norvasc -] 10 mg PO DAILY 01/05/15 Cilostazol [Pletal] 100 mg PO DAILY 01/05/15 Cyanocobalamin/Folic AC/Vit B6 [Foltabs 800 Tablet] 1 each PO DAILY 01/05/15 Polyethylene Glycol 3350 [Miralax 255 gm Btl -] 17 gm PO BID 01/05/15 Lactulose (Oral Use) [Cephulac -] 20 gm PO DAILY PRN #0 udc 01/12/15 Vital Signs: Vital Signs Temperature 97.6 F 08/28/16 15:14 Pulse Rate 93 H 08/28/16 15:14 Respiratory Rate 20 08/28/16 15:14 Blood Pressure 110/58 08/28/16 15:14 O2 Sat by Pulse Oximetry (%) 94 L 08/28/16 11:10 - Other Data Labs, Other Data: CBC, BMP 08/28/16 05:35 08/28/16 05:35 INR, PTT INR 1.07 (0.82-1.09) 08/26/16 03:38
--- NOTE | 2016-08-28 16:06 | PN ---
Progress Note (short form) - Note Progress Note: Sleeping comfortably on NC O2. Breathing appears more comfortable than yesterday. No acute events overnight. Intake & Output 08/25/16 08/26/16 08/27/16 08/28/16 23:59 23:59 23:59 23:59 Intake Total 160 1230 180 Output Total 1000 Balance 160 230 180 Weight 180 lb Last Vital Signs Temp Pulse Resp BP Pulse Ox 97.6 F 93 H 20 110/58 94 L 08/28/16 15:14 08/28/16 15:14 08/28/16 15:14 08/28/16 15:14 08/28/16 11:10 Active Medications Aclidinium [place] (Tudorza -) 1 puff IH BID [facility] Last Admin: 08/28/16 09:47 Dose: 1 puff Albuterol Sulfate (Ventolin 0.083% Nebulizer Soln -) 1 amp NEB Q4H PRN PRN Reason: SHORT OF BREATH/WHEEZING Albuterol Sulfate (Ventolin 0.083% Nebulizer Soln -) 1 amp NEB QIDR [facility] Last Admin: 08/28/16 11:10 Dose: 1 amp Amlodipine Besylate (Norvasc -) 10 mg PO DAILY [facility] Last Admin: 08/28/16 09:45 Dose: 10 mg Atorvastatin Calcium (Lipitor -) 40 mg PO HS [facility] Last Admin: 08/27/16 21:38 Dose: 40 mg Azithromycin (Zithromax 500mg Ivpb (Pre-Docked)) 500 mg IVPB DAILY [facility] Last Admin: 08/28/16 09:47 Dose: 500 mg Ceftriaxone Sodium (Rocephin 1gm Ivpb (Pre-Docked)) 1 gm IVPB DAILY [facility] Last Admin: 08/28/16 11:37 Dose: 1 gm Cilostazol (Pletal -) 100 mg PO BID [facility] Last Admin: 08/28/16 09:46 Dose: 100 mg Docusate Sodium (Colace -) 100 mg PO BID [facility] Last Admin: 08/28/16 09:46 Dose: 100 mg Guaifenesin (Robitussin Dm -) 10 ml PO Q4H [facility] Last Admin: 08/28/16 15:37 Dose: Not Given Heparin Sodium (Porcine) (Heparin -) 5,000 unit SQ BID [facility] Last Admin: 08/28/16 09:46 Dose: 5,000 unit Insulin Aspart (Novolog Vial Sliding Scale -) 1 vial SQ ACHS [facility] PRN Reason: Protocol Last Admin: 08/28/16 11:42 Dose: 6 units Losartan Potassium (Cozaar -) 25 mg PO DAILY [facility] Last Admin: 08/28/16 09:46 Dose: 25 mg Methylprednisolone Sodium Succinate (Solu-Medrol -) 60 mg IVPB Q8H-IV [facility] Last Admin: 08/28/16 09:46 Dose: 60 mg Metoprolol Succinate (Toprol Xl -) 25 mg PO DAILY [facility] Last Admin: 08/28/16 09:46 Dose: 25 mg Pantoprazole Sodium (Protonix -) 20 mg PO DAILY [facility] Last Admin: 08/28/16 09:45 Dose: 20 mg Tamsulosin HCl (Flomax -) 0.4 mg PO DAILY@0830 [facility] Last Admin: 08/28/16 09:45 Dose: 0.4 mg Constitutional: Yes: No Distress Eyes: Yes: Conjunctiva Clear, EOM Intact HENT: Yes: Atraumatic, Normocephalic Neck: Yes: Supple, Trachea Midline Cardiovascular: Yes: Regular Rate and Rhythm Respiratory: Yes: Cough, Diminished, On Nasal O2, Rhonchi. No: Accessory Muscle Use, Rales, Stridor, Tachypnea, Wheezes ...Inspection: Yes: WNL ...Clubbing: No Gastrointestinal: Yes: Normal Bowel Sounds, Soft Renal/: Yes: WNL Musculoskeletal: Yes: WNL Extremities: Yes: WNL Edema: No Peripheral Pulses WNL: Yes Integumentary: Yes: WNL Neurological: Yes: WNL, Alert, Oriented ...Motor Strength: WNL Psychiatric: Yes: WNL, Alert, Oriented Labs: Problem List - Problems (1) COPD (chronic obstructive pulmonary disease) Code(s): J44.9 - CHRONIC OBSTRUCTIVE PULMONARY DISEASE, UNSPECIFIED (2) Abdominal aortic aneurysm Code(s): I71.4 - ABDOMINAL AORTIC ANEURYSM, WITHOUT RUPTURE Qualifiers: Presence of rupture: without rupture Qualified Code(s): I71.4 - Abdominal aortic aneurysm, without rupture (3) CAD (coronary artery disease) Code(s): I25.10 - ATHSCL HEART DISEASE OF [place] CORONARY ARTERY W/O ANG PCTRS Qualifiers: Coronary Disease-Associated Artery/Lesion type: [place] artery [place] vs. transplanted heart: [place] heart Associated angina: without angina Qualified Code(s): I25.10 - Atherosclerotic heart disease of [place] coronary artery without angina pectoris (4) COPD exacerbation Code(s): J44.1 - CHRONIC OBSTRUCTIVE PULMONARY DISEASE W (ACUTE) EXACERBATION (5) Chronic kidney disease Code(s): N18.9 - CHRONIC KIDNEY DISEASE, UNSPECIFIED Qualifiers: Chronic kidney disease stage: unspecified stage Qualified Code(s): N18.9 - Chronic kidney disease, unspecified (6) Cough Code(s): R05 - COUGH (7) Enlarged prostate with lower urinary tract symptoms (LUTS) Code(s): N40.1 - BENIGN PROSTATIC HYPERPLASIA WITH LOWER URINARY TRACT SYMP (8) Hyperlipidemia Code(s): E78.5 - HYPERLIPIDEMIA, UNSPECIFIED Qualifiers: Hyperlipidemia type: Pure hypercholesterolemia (9) Hypertension Code(s): I10 - ESSENTIAL (PRIMARY) HYPERTENSION (10) Left lumbar pain Code(s): M54.5 - LOW BACK PAIN (11) Peripheral artery disease Code(s): I73.9 - PERIPHERAL VASCULAR DISEASE, UNSPECIFIED (12) Status post coronary artery stent placement Code(s): Z95.5 - PRESENCE OF CORONARY ANGIOPLASTY IMPLANT AND GRAFT Assessment/Plan Tudorza BID IV Medrol -> can likely start to taper tomorrow ABX coverage O2 as needed BD TX VTE prophylaxis No smoking Dr Reynoso. Problem List - Problems (1) COPD (chronic obstructive pulmonary disease) Code(s): J44.9 - CHRONIC OBSTRUCTIVE PULMONARY DISEASE, UNSPECIFIED (2) Abdominal aortic aneurysm Code(s): I71.4 - ABDOMINAL AORTIC ANEURYSM, WITHOUT RUPTURE Qualifiers: Qualified Code(s): I71.4 - Abdominal aortic aneurysm, without rupture (3) CAD (coronary artery disease) Code(s): I25.10 - ATHSCL HEART DISEASE OF [place] CORONARY ARTERY W/O ANG PCTRS Qualifiers: Qualified Code(s): I25.10 - Atherosclerotic heart disease of [place] coronary artery without angina pectoris (4) COPD exacerbation Code(s): J44.1 - CHRONIC OBSTRUCTIVE PULMONARY DISEASE W (ACUTE) EXACERBATION (5) Chronic kidney disease Code(s): N18.9 - CHRONIC KIDNEY DISEASE, UNSPECIFIED Qualifiers: Qualified Code(s): N18.9 - Chronic kidney disease, unspecified (6) Cough Code(s): R05 - COUGH (7) Enlarged prostate with lower urinary tract symptoms (LUTS) Code(s): N40.1 - BENIGN PROSTATIC HYPERPLASIA WITH LOWER URINARY TRACT SYMP (8) Hyperlipidemia Code(s): E78.5 - HYPERLIPIDEMIA, UNSPECIFIED (9) Hypertension Code(s): I10 - ESSENTIAL (PRIMARY) HYPERTENSION (10) Left lumbar pain Code(s): M54.5 - LOW BACK PAIN (11) Peripheral artery disease Code(s): I73.9 - PERIPHERAL VASCULAR DISEASE, UNSPECIFIED (12) Status post coronary artery stent placement Code(s): Z95.5 - PRESENCE OF CORONARY ANGIOPLASTY IMPLANT AND GRAFT
[2016-08-28] MEDS: ATORVASTATIN CA 40 MG TABLET (FP) PO SCH (22:02)
--- NOTE | 2016-08-28 23:04 | PN ---
Progress Note, Physician History of Present Illness: Pt still coughing. Pt w/o CP, palp, SOB, abd pain, fever - Current Medication List Current Medications: Active Medications Aclidinium [place] (Tudorza -) 1 puff IH BID [facility] Last Admin: 08/28/16 22:05 Dose: 1 puff Albuterol Sulfate (Ventolin 0.083% Nebulizer Soln -) 1 amp NEB Q4H PRN PRN Reason: SHORT OF BREATH/WHEEZING Albuterol Sulfate (Ventolin 0.083% Nebulizer Soln -) 1 amp NEB QIDR [facility] Last Admin: 08/28/16 18:02 Dose: 1 amp Amlodipine Besylate (Norvasc -) 10 mg PO DAILY [facility] Last Admin: 08/28/16 09:45 Dose: 10 mg Atorvastatin Calcium (Lipitor -) 40 mg PO HS [facility] Last Admin: 08/28/16 22:02 Dose: 40 mg Azithromycin (Zithromax 500mg Ivpb (Pre-Docked)) 500 mg IVPB DAILY [facility] Last Admin: 08/28/16 09:47 Dose: 500 mg Ceftriaxone Sodium (Rocephin 1gm Ivpb (Pre-Docked)) 1 gm IVPB DAILY [facility] Last Admin: 08/28/16 11:37 Dose: 1 gm Cilostazol (Pletal -) 100 mg PO BID [facility] Last Admin: 08/28/16 22:03 Dose: 100 mg Docusate Sodium (Colace -) 100 mg PO BID [facility] Last Admin: 08/28/16 22:02 Dose: 100 mg Guaifenesin (Robitussin Dm -) 10 ml PO Q4H [facility] Last Admin: 08/28/16 22:02 Dose: 10 ml Heparin Sodium (Porcine) (Heparin -) 5,000 unit SQ BID [facility] Last Admin: 08/28/16 22:02 Dose: 5,000 unit Insulin Aspart (Novolog Vial Sliding Scale -) 1 vial SQ ACHS [facility] PRN Reason: Protocol Last Admin: 08/28/16 22:02 Dose: 2 units Losartan Potassium (Cozaar -) 25 mg PO DAILY [facility] Last Admin: 08/28/16 09:46 Dose: 25 mg Methylprednisolone Sodium Succinate (Solu-Medrol -) 60 mg IVPB Q8H-IV [facility] Last Admin: 08/28/16 22:01 Dose: 60 mg Metoprolol Succinate (Toprol Xl -) 25 mg PO DAILY [facility] Last Admin: 08/28/16 09:46 Dose: 25 mg Pantoprazole Sodium (Protonix -) 20 mg PO DAILY [facility] Last Admin: 08/28/16 09:45 Dose: 20 mg Tamsulosin HCl (Flomax -) 0.4 mg PO DAILY@0830 [facility] Last Admin: 08/28/16 09:45 Dose: 0.4 mg - Objective Vital Signs: Vital Signs Temperature 97.6 F 08/28/16 15:14 Pulse Rate 93 H 08/28/16 15:14 Respiratory Rate 20 08/28/16 15:14 Blood Pressure 110/58 08/28/16 15:14 O2 Sat by Pulse Oximetry (%) 94 L 08/28/16 11:10 Constitutional: Yes: No Distress, Calm Cardiovascular: Yes: Regular Rate and Rhythm, S1, S2 Respiratory: Yes: Regular, Rales (minimal, scattered) Gastrointestinal: Yes: Normal Bowel Sounds, Soft. No: Palpable Mass, Tenderness Edema: No Neurological: Yes: Alert, Oriented Labs: CBC, BMP 08/28/16 05:35 08/28/16 05:35 INR, PTT INR 1.07 (0.82-1.09) 08/26/16 03:38 Problem List - Problems (1) Acute exacerbation of chronic obstructive pulmonary disease (COPD) Code(s): J44.1 - CHRONIC OBSTRUCTIVE PULMONARY DISEASE W (ACUTE) EXACERBATION (2) CAD (coronary artery disease) Code(s): I25.10 - ATHSCL HEART DISEASE OF [place] CORONARY ARTERY W/O ANG PCTRS Qualifiers: Coronary Disease-Associated Artery/Lesion type: [place] artery [place] vs. transplanted heart: [place] heart Associated angina: without angina Qualified Code(s): I25.10 - Atherosclerotic heart disease of [place] coronary artery without angina pectoris (3) Chronic kidney disease Code(s): N18.9 - CHRONIC KIDNEY DISEASE, UNSPECIFIED Qualifiers: Chronic kidney disease stage: unspecified stage Qualified Code(s): N18.9 - Chronic kidney disease, unspecified (4) History of abdominal aortic aneurysm (AAA) repair Code(s): Z98.890 - OTHER SPECIFIED POSTPROCEDURAL STATES (5) Hypertension Code(s): I10 - ESSENTIAL (PRIMARY) HYPERTENSION (6) Status post femoral-popliteal bypass surgery Code(s): Z95.828 - PRESENCE OF OTHER VASCULAR IMPLANTS AND GRAFTS (7) BPH (benign prostatic hyperplasia) Code(s): N40.0 - BENIGN PROSTATIC HYPERPLASIA WITHOUT LOWER URINRY TRACT SYMP (8) Elevated fasting blood sugar Assessment/Plan: probable secondary to steroid; to monitor Code(s): R73.01 - IMPAIRED FASTING GLUCOSE (9) Hypernatremia Assessment/Plan: pt on IVF; to decrease rate; monitor Na level Code(s): E87.0 - HYPEROSMOLALITY AND HYPERNATREMIA Assessment/Plan Pt on IV abtx, steroids, lasix Pulmonary consult appreciated. DVT [prophylaxis. AM labs.
[2016-08-29] MEDS: guaiFENesin/D-METHORPHAN HB 10 ML UNIT-DOSE CUPS PO SCH ×3 (01:15→09:04)
[2016-08-29] MEDS: methylPREDNISolone NA SUCC 125 MG/2 ML VIAL IVPB SCH ×3 (02:15→18:04)
--- NOTE | 2016-08-29 02:57 | PN ---
Progress Note, Physician Chief Complaint: Pt A&Ox3; dry cough; no chest pain History of Present Illness: The patient is an 86-year-old whte male, with a significant past medical history of asthma, CAD, HTN, diastolic CHF (2015 ECHO) and hypercholesterolemia , who presents to the ED with 3 days of sore throat, cough, chest congestion, and shortness of breath. Patient was placed on Z-Bert by PCP. Pt states that he decided to report to the ED today due to worsening shortness of breath. He also reports experiencing diarrhea, nausea, and vomiting. The patient denies any fever, chills, or abdominal pain. - Current Medication List Current Medications: Active Medications Aclidinium [place] (Tudorza -) 1 puff IH BID [facility] Last Admin: 08/28/16 22:05 Dose: 1 puff Albuterol Sulfate (Ventolin 0.083% Nebulizer Soln -) 1 amp NEB Q4H PRN PRN Reason: SHORT OF BREATH/WHEEZING Albuterol Sulfate (Ventolin 0.083% Nebulizer Soln -) 1 amp NEB QIDR [facility] Last Admin: 08/28/16 23:31 Dose: 1 amp Amlodipine Besylate (Norvasc -) 10 mg PO DAILY [facility] Last Admin: 08/28/16 09:45 Dose: 10 mg Atorvastatin Calcium (Lipitor -) 40 mg PO HS [facility] Last Admin: 08/28/16 22:02 Dose: 40 mg Azithromycin (Zithromax 500mg Ivpb (Pre-Docked)) 500 mg IVPB DAILY [facility] Last Admin: 08/28/16 09:47 Dose: 500 mg Ceftriaxone Sodium (Rocephin 1gm Ivpb (Pre-Docked)) 1 gm IVPB DAILY [facility] Last Admin: 08/28/16 11:37 Dose: 1 gm Cilostazol (Pletal -) 100 mg PO BID [facility] Last Admin: 08/28/16 22:03 Dose: 100 mg Docusate Sodium (Colace -) 100 mg PO BID [facility] Last Admin: 08/28/16 22:02 Dose: 100 mg Guaifenesin (Robitussin Dm -) 10 ml PO Q4H [facility] Last Admin: 08/28/16 22:02 Dose: 10 ml Heparin Sodium (Porcine) (Heparin -) 5,000 unit SQ BID [facility] Last Admin: 08/28/16 22:02 Dose: 5,000 unit Insulin Aspart (Novolog Vial Sliding Scale -) 1 vial SQ ACHS [facility] PRN Reason: Protocol Last Admin: 08/28/16 22:02 Dose: 2 units Losartan Potassium (Cozaar -) 25 mg PO DAILY [facility] Last Admin: 08/28/16 09:46 Dose: 25 mg Methylprednisolone Sodium Succinate (Solu-Medrol -) 60 mg IVPB Q8H-IV [facility] Last Admin: 08/28/16 22:01 Dose: 60 mg Metoprolol Succinate (Toprol Xl -) 25 mg PO DAILY [facility] Last Admin: 08/28/16 09:46 Dose: 25 mg Pantoprazole Sodium (Protonix -) 20 mg PO DAILY [facility] Last Admin: 08/28/16 09:45 Dose: 20 mg Tamsulosin HCl (Flomax -) 0.4 mg PO DAILY@0830 [facility] Last Admin: 08/28/16 09:45 Dose: 0.4 mg - Objective Vital Signs: Vital Signs Temperature 97.8 F 08/28/16 22:00 Pulse Rate 92 H 08/28/16 22:00 Respiratory Rate 20 08/28/16 22:00 Blood Pressure 121/56 08/28/16 22:00 O2 Sat by Pulse Oximetry (%) 96 08/28/16 21:00 Constitutional: Yes: Calm Eyes: Yes: WNL HENT: Yes: WNL Neck: Yes: WNL Cardiovascular: Yes: S1, S2 Respiratory: Yes: Diminished Gastrointestinal: Yes: Soft ...Rectal Exam: Yes: Deferred Genitourinary: No: Anuria Musculoskeletal: Yes: Muscle Weakness Extremities: Yes: Cool Edema: No Peripheral Pulses WNL: No Peripheral Pulses: Left Doralis Pedis: 1+, Right Dorsalis Pedis: 1+ Integumentary: Yes: WNL Neurological: Yes: Alert, Oriented Psychiatric: Yes: WNL Labs: CBC, BMP 08/28/16 05:35 08/28/16 05:35 INR, PTT INR 1.07 (0.82-1.09) 08/26/16 03:38 - ....Imaging Chest X-ray: Image Reviewed (?left sided infiltrate) Problem List - Problems (1) Acute exacerbation of chronic obstructive pulmonary disease (COPD) Code(s): J44.1 - CHRONIC OBSTRUCTIVE PULMONARY DISEASE W (ACUTE) EXACERBATION (2) BPH (benign prostatic hyperplasia) Code(s): N40.0 - BENIGN PROSTATIC HYPERPLASIA WITHOUT LOWER URINRY TRACT SYMP (3) Elevated fasting blood sugar Code(s): R73.01 - IMPAIRED FASTING GLUCOSE (4) History of abdominal aortic aneurysm (AAA) repair Code(s): Z98.890 - OTHER SPECIFIED POSTPROCEDURAL STATES (5) Status post femoral-popliteal bypass surgery Code(s): Z95.828 - PRESENCE OF OTHER VASCULAR IMPLANTS AND GRAFTS (6) Abdominal aortic aneurysm Code(s): I71.4 - ABDOMINAL AORTIC ANEURYSM, WITHOUT RUPTURE Qualifiers: Presence of rupture: without rupture Qualified Code(s): I71.4 - Abdominal aortic aneurysm, without rupture (7) CAD (coronary artery disease) Code(s): I25.10 - ATHSCL HEART DISEASE OF [place] CORONARY ARTERY W/O ANG PCTRS Qualifiers: Coronary Disease-Associated Artery/Lesion type: [place] artery [place] vs. transplanted heart: [place] heart Associated angina: without angina Qualified Code(s): I25.10 - Atherosclerotic heart disease of [place] coronary artery without angina pectoris (8) Chronic kidney disease Code(s): N18.9 - CHRONIC KIDNEY DISEASE, UNSPECIFIED Qualifiers: Chronic kidney disease stage: unspecified stage Qualified Code(s): N18.9 - Chronic kidney disease, unspecified (9) Cough Code(s): R05 - COUGH (10) Diastolic dysfunction without heart failure Code(s): I51.9 - HEART DISEASE, UNSPECIFIED (11) Enlarged prostate with lower urinary tract symptoms (LUTS) Code(s): N40.1 - BENIGN PROSTATIC HYPERPLASIA WITH LOWER URINARY TRACT SYMP (12) Hyperlipidemia Assessment/Plan: total cholesterol 137 Continue lipitor. Code(s): E78.5 - HYPERLIPIDEMIA, UNSPECIFIED Qualifiers: Hyperlipidemia type: Pure hypercholesterolemia (13) Hypertension Assessment/Plan: Continue present medications. Code(s): I10 - ESSENTIAL (PRIMARY) HYPERTENSION (14) Peripheral artery disease Assessment/Plan: On Pletal. Code(s): I73.9 - PERIPHERAL VASCULAR DISEASE, UNSPECIFIED (15) Pneumonia Assessment/Plan: Continue antibiotics; fu cultures. Code(s): J18.9 - PNEUMONIA, UNSPECIFIED ORGANISM Qualifiers: Pneumonia type: due to unspecified organism Laterality: left Lung location: lower lobe of lung Qualified Code(s): J18.9 - Pneumonia, unspecified organism (16) Status post coronary artery stent placement Code(s): Z95.5 - PRESENCE OF CORONARY ANGIOPLASTY IMPLANT AND GRAFT
--- NOTE | 2016-08-29 03:04 | PN ---
Progress Note, Physician Chief Complaint: Pt A&Ox3; dry cough; no chest pain; no PND. History of Present Illness: The patient is an 86-year-old whte male, with a significant past medical history of asthma, CAD, HTN, diastolic CHF (2015 ECHO) and hypercholesterolemia , who presents to the ED with 3 days of sore throat, cough, chest congestion, and shortness of breath. Patient was placed on Z-Bert by PCP. Pt states that he decided to report to the ED today due to worsening shortness of breath. He also reports experiencing diarrhea, nausea, and vomiting. The patient denies any fever, chills, or abdominal pain. - Current Medication List Current Medications: Active Medications Aclidinium [place] (Tudorza -) 1 puff IH BID [facility] Last Admin: 08/28/16 22:05 Dose: 1 puff Albuterol Sulfate (Ventolin 0.083% Nebulizer Soln -) 1 amp NEB Q4H PRN PRN Reason: SHORT OF BREATH/WHEEZING Albuterol Sulfate (Ventolin 0.083% Nebulizer Soln -) 1 amp NEB QIDR [facility] Last Admin: 08/28/16 23:31 Dose: 1 amp Amlodipine Besylate (Norvasc -) 10 mg PO DAILY [facility] Last Admin: 08/28/16 09:45 Dose: 10 mg Atorvastatin Calcium (Lipitor -) 40 mg PO HS [facility] Last Admin: 08/28/16 22:02 Dose: 40 mg Azithromycin (Zithromax 500mg Ivpb (Pre-Docked)) 500 mg IVPB DAILY [facility] Last Admin: 08/28/16 09:47 Dose: 500 mg Ceftriaxone Sodium (Rocephin 1gm Ivpb (Pre-Docked)) 1 gm IVPB DAILY [facility] Last Admin: 08/28/16 11:37 Dose: 1 gm Cilostazol (Pletal -) 100 mg PO BID [facility] Last Admin: 08/28/16 22:03 Dose: 100 mg Docusate Sodium (Colace -) 100 mg PO BID [facility] Last Admin: 08/28/16 22:02 Dose: 100 mg Guaifenesin (Robitussin Dm -) 10 ml PO Q4H [facility] Last Admin: 08/28/16 22:02 Dose: 10 ml Heparin Sodium (Porcine) (Heparin -) 5,000 unit SQ BID [facility] Last Admin: 08/28/16 22:02 Dose: 5,000 unit Insulin Aspart (Novolog Vial Sliding Scale -) 1 vial SQ ACHS [facility] PRN Reason: Protocol Last Admin: 08/28/16 22:02 Dose: 2 units Losartan Potassium (Cozaar -) 25 mg PO DAILY [facility] Last Admin: 08/28/16 09:46 Dose: 25 mg Methylprednisolone Sodium Succinate (Solu-Medrol -) 60 mg IVPB Q8H-IV [facility] Last Admin: 08/28/16 22:01 Dose: 60 mg Metoprolol Succinate (Toprol Xl -) 25 mg PO DAILY [facility] Last Admin: 08/28/16 09:46 Dose: 25 mg Pantoprazole Sodium (Protonix -) 20 mg PO DAILY [facility] Last Admin: 08/28/16 09:45 Dose: 20 mg Tamsulosin HCl (Flomax -) 0.4 mg PO DAILY@0830 [facility] Last Admin: 08/28/16 09:45 Dose: 0.4 mg - Objective Vital Signs: Vital Signs Temperature 97.8 F 08/28/16 22:00 Pulse Rate 92 H 08/28/16 22:00 Respiratory Rate 20 08/28/16 22:00 Blood Pressure 121/56 08/28/16 22:00 O2 Sat by Pulse Oximetry (%) 96 08/28/16 21:00 Constitutional: Yes: Calm Eyes: Yes: WNL HENT: Yes: WNL Neck: Yes: WNL Cardiovascular: Yes: Regular Rate and Rhythm Respiratory: Yes: Diminished Gastrointestinal: Yes: Soft ...Rectal Exam: Yes: Deferred Genitourinary: No: Anuria Musculoskeletal: Yes: Muscle Weakness Extremities: Yes: Cool Edema: No Peripheral Pulses WNL: No Peripheral Pulses: Left Doralis Pedis: 1+, Right Dorsalis Pedis: 1+ Integumentary: Yes: WNL Neurological: Yes: Alert, Oriented, Weakness Psychiatric: Yes: WNL Labs: CBC, BMP 08/28/16 05:35 08/28/16 05:35 INR, PTT INR 1.07 (0.82-1.09) 08/26/16 03:38 Abnormal Lab Results 08/28/16 08/28/16 08/28/16 05:35 05:35 05:35 WBC 13.1 H RBC 3.54 L Hct 34.4 L MCV 97.1 H Plt Count 113 L BUN 49 H D Creatinine 2.2 H Random Glucose 165 H D Hemoglobin A1c % 6.6 H Total Protein 6.3 L Albumin 3.2 L - ....Imaging Other: Other (telemetry: NSR) Problem List - Problems (1) Acute exacerbation of chronic obstructive pulmonary disease (COPD) Assessment/Plan: bronchodilators, steroids, and antibiotics per clamp carrier operator. Code(s): J44.1 - CHRONIC OBSTRUCTIVE PULMONARY DISEASE W (ACUTE) EXACERBATION (2) BPH (benign prostatic hyperplasia) Code(s): N40.0 - BENIGN PROSTATIC HYPERPLASIA WITHOUT LOWER URINRY TRACT SYMP (3) Elevated fasting blood sugar Code(s): R73.01 - IMPAIRED FASTING GLUCOSE (4) History of abdominal aortic aneurysm (AAA) repair Code(s): Z98.890 - OTHER SPECIFIED POSTPROCEDURAL STATES (5) Status post femoral-popliteal bypass surgery Code(s): Z95.828 - PRESENCE OF OTHER VASCULAR IMPLANTS AND GRAFTS (6) Abdominal aortic aneurysm Code(s): I71.4 - ABDOMINAL AORTIC ANEURYSM, WITHOUT RUPTURE Qualifiers: Presence of rupture: without rupture Qualified Code(s): I71.4 - Abdominal aortic aneurysm, without rupture (7) CAD (coronary artery disease) Code(s): I25.10 - ATHSCL HEART DISEASE OF [place] CORONARY ARTERY W/O ANG PCTRS Qualifiers: Coronary Disease-Associated Artery/Lesion type: [place] artery [place] vs. transplanted heart: [place] heart Associated angina: without angina Qualified Code(s): I25.10 - Atherosclerotic heart disease of [place] coronary artery without angina pectoris (8) Chronic kidney disease Code(s): N18.9 - CHRONIC KIDNEY DISEASE, UNSPECIFIED Qualifiers: Chronic kidney disease stage: unspecified stage Qualified Code(s): N18.9 - Chronic kidney disease, unspecified (9) Cough Code(s): R05 - COUGH (10) Diastolic dysfunction without heart failure Code(s): I51.9 - HEART DISEASE, UNSPECIFIED (11) Enlarged prostate with lower urinary tract symptoms (LUTS) Code(s): N40.1 - BENIGN PROSTATIC HYPERPLASIA WITH LOWER URINARY TRACT SYMP (12) Hyperlipidemia Assessment/Plan: total cholesterol 137 Continue lipitor. Code(s): E78.5 - HYPERLIPIDEMIA, UNSPECIFIED Qualifiers: Hyperlipidemia type: Pure hypercholesterolemia (13) Hypertension Assessment/Plan: Continue present medications. Code(s): I10 - ESSENTIAL (PRIMARY) HYPERTENSION (14) Peripheral artery disease Assessment/Plan: On Pletal. COntinue aggressive Rx of cholesterol with statin, diet modification, and exercise. Code(s): I73.9 - PERIPHERAL VASCULAR DISEASE, UNSPECIFIED (15) Pneumonia Assessment/Plan: Continue antibiotics; fu cultures. Code(s): J18.9 - PNEUMONIA, UNSPECIFIED ORGANISM Qualifiers: Pneumonia type: due to unspecified organism Laterality: left Lung location: lower lobe of lung Qualified Code(s): J18.1 - Lobar pneumonia, unspecified organism (16) Status post coronary artery stent placement Code(s): Z95.5 - PRESENCE OF CORONARY ANGIOPLASTY IMPLANT AND GRAFT (17) Renal dysfunction Code(s): N28.9 - DISORDER OF KIDNEY AND URETER, UNSPECIFIED
[2016-08-29] MEDS: ALBUTEROL SO4 0.083% IH SOL 2.5 MG/3 ML VIAL.NEB. NEB SCH ×3 (06:04→17:56)
[2016-08-29] MEDS: INSULIN SLIDING SCALE (NOVOLOG) 1 VIAL SQ SCH ×4 (06:05→21:31)
[2016-08-29 07:56] LABS: MCH 33.2 pg (25.7-33.7); MCHC 34.2 g/dl (32.0-35.9); MEAN CELL VOLUME 97.1 fl (80-96); MEAN PLT VOLUME 9.2 fl (7.5-11.1); PLATELET COUNT 114 K/MM3 (134-434); RDW 14.1 % (11.9-15.9); WHITE BLOOD COUNT 10.2 K/mm3 (4.0-10.0)
[2016-08-29 08:36] LABS: ANION GAP 10 (8-16); CALCIUM 8.9 mg/dL (8.5-10.1); CO2 24 mmol/L (21-32); GLUCOSE,RANDOM 187 mg/dL (74-106)
[2016-08-29] MEDS: TAMSULOSIN HCL 0.4 MG CAP.ER.24H (FP) PO SCH (08:55)
[2016-08-29] MEDS: PANTOPRAZOLE 20 MG TABLET (FP) PO SCH (09:04)
[2016-08-29] MEDS: DOCUSATE SODIUM 100 MG CAPSULE (FP) PO SCH ×2 (09:04→21:17)
[2016-08-29] MEDS: HEPARIN NA (PORCINE) 5,000 UNITS/ML 1ML VIAL SQ SCH ×2 (09:05→21:17)
[2016-08-29] MEDS: amLODIPine BESYLATE 10 MG TABLET (FP) PO SCH (09:05)
[2016-08-29] MEDS: LOSARTAN POTASSIUM 25 MG TABLET PO SCH (09:05)
[2016-08-29] MEDS: METOPROLOL SUCCINATE 25 MG TAB.SR.24H (FP) PO SCH (09:05)
[2016-08-29] MEDS: cefTRIAXone 1 GM/50 ML BAG (PRE-DOCKED) IVPB SCH (09:05)
[2016-08-29] MEDS: AZITHROMYCIN IVPB 500 MG/250 ML D5W PRE-DOCKED IVPB SCH (09:06)
[2016-08-29] MEDS: ACLIDINIUM BROMIDE 400 MCG/INH AERO.POWD IH SCH ×2 (09:06→22:24)
[2016-08-29] MEDS: CILOSTAZOL 100 MG TABLET PO SCH ×2 (09:21→22:24)
--- NOTE | 2016-08-29 11:08 | PN ---
Progress Note, Physician History of Present Illness: PULMONARY' ALERT,LESS DYSPNEIC,+ COUGH - Current Medication List Current Medications: Active Medications Aclidinium [place] (Tudorza -) 1 puff IH BID [facility] Last Admin: 08/29/16 09:06 Dose: 1 puff Albuterol Sulfate (Ventolin 0.083% Nebulizer Soln -) 1 amp NEB Q4H PRN PRN Reason: SHORT OF BREATH/WHEEZING Albuterol Sulfate (Ventolin 0.083% Nebulizer Soln -) 1 amp NEB QIDR [facility] Last Admin: 08/29/16 06:04 Dose: 1 amp Amlodipine Besylate (Norvasc -) 10 mg PO DAILY [facility] Last Admin: 08/29/16 09:05 Dose: 10 mg Atorvastatin Calcium (Lipitor -) 40 mg PO HS [facility] Last Admin: 08/28/16 22:02 Dose: 40 mg Azithromycin (Zithromax 500mg Ivpb (Pre-Docked)) 500 mg IVPB DAILY [facility] Last Admin: 08/29/16 09:06 Dose: 500 mg Ceftriaxone Sodium (Rocephin 1gm Ivpb (Pre-Docked)) 1 gm IVPB DAILY [facility] Last Admin: 08/29/16 09:05 Dose: 1 gm Cilostazol (Pletal -) 100 mg PO BID [facility] Last Admin: 08/29/16 09:21 Dose: 100 mg Docusate Sodium (Colace -) 100 mg PO BID [facility] Last Admin: 08/29/16 09:04 Dose: 100 mg Guaifenesin (Robitussin Dm -) 10 ml PO Q4H [facility] Last Admin: 08/29/16 09:04 Dose: 10 ml Heparin Sodium (Porcine) (Heparin -) 5,000 unit SQ BID [facility] Last Admin: 08/29/16 09:05 Dose: 5,000 unit Insulin Aspart (Novolog Vial Sliding Scale -) 1 vial SQ ACHS [facility] PRN Reason: Protocol Last Admin: 08/29/16 06:05 Dose: Not Given Losartan Potassium (Cozaar -) 25 mg PO DAILY [facility] Last Admin: 08/29/16 09:05 Dose: 25 mg Methylprednisolone Sodium Succinate (Solu-Medrol -) 60 mg IVPB Q8H-IV [facility] Last Admin: 08/29/16 09:03 Dose: 60 mg Metoprolol Succinate (Toprol Xl -) 25 mg PO DAILY [facility] Last Admin: 08/29/16 09:05 Dose: 25 mg Pantoprazole Sodium (Protonix -) 20 mg PO DAILY [facility] Last Admin: 08/29/16 09:04 Dose: 20 mg Tamsulosin HCl (Flomax -) 0.4 mg PO DAILY@0830 [facility] Last Admin: 08/29/16 08:55 Dose: 0.4 mg - Objective Vital Signs: Vital Signs Temperature 98 F 08/29/16 10:00 Pulse Rate 92 H 08/29/16 10:50 Respiratory Rate 18 08/29/16 10:00 Blood Pressure 123/45 08/29/16 10:00 O2 Sat by Pulse Oximetry (%) 93 L 08/29/16 10:50 Constitutional: Yes: Well Nourished, Calm Eyes: Yes: WNL HENT: Yes: WNL Neck: Yes: WNL Cardiovascular: Yes: Regular Rate and Rhythm, S1, S2 Respiratory: Yes: Rhonchi (SCATTERED ABDIAZIZ RHONCHI) Gastrointestinal: Yes: Normal Bowel Sounds, Soft Extremities: Yes: WNL Edema: No Labs: CBC, BMP 08/29/16 05:57 08/29/16 05:57 INR, PTT INR 1.07 (0.82-1.09) 08/26/16 03:38 Assessment/Plan Problem List - Problems (1) COPD (chronic obstructive pulmonary disease) Code(s): J44.9 - CHRONIC OBSTRUCTIVE PULMONARY DISEASE, UNSPECIFIED (2) Abdominal aortic aneurysm Code(s): I71.4 - ABDOMINAL AORTIC ANEURYSM, WITHOUT RUPTURE Qualifiers: Presence of rupture: without rupture Qualified Code(s): I71.4 - Abdominal aortic aneurysm, without rupture (3) CAD (coronary artery disease) Code(s): I25.10 - ATHSCL HEART DISEASE OF [place] CORONARY ARTERY W/O ANG PCTRS Qualifiers: Coronary Disease-Associated Artery/Lesion type: [place] artery [place] vs. transplanted heart: [place] heart Associated angina: without angina Qualified Code(s): I25.10 - Atherosclerotic heart disease of [place] coronary artery without angina pectoris (4) COPD exacerbation Code(s): J44.1 - CHRONIC OBSTRUCTIVE PULMONARY DISEASE W (ACUTE) EXACERBATION (5) Chronic kidney disease Code(s): N18.9 - CHRONIC KIDNEY DISEASE, UNSPECIFIED Qualifiers: Chronic kidney disease stage: unspecified stage Qualified Code(s): N18.9 - Chronic kidney disease, unspecified (6) Cough Code(s): R05 - COUGH (7) Enlarged prostate with lower urinary tract symptoms (LUTS) Code(s): N40.1 - BENIGN PROSTATIC HYPERPLASIA WITH LOWER URINARY TRACT SYMP (8) Hyperlipidemia Code(s): E78.5 - HYPERLIPIDEMIA, UNSPECIFIED Qualifiers: Hyperlipidemia type: Pure hypercholesterolemia (9) Hypertension Code(s): I10 - ESSENTIAL (PRIMARY) HYPERTENSION (10) Left lumbar pain Code(s): M54.5 - LOW BACK PAIN (11) Peripheral artery disease Code(s): I73.9 - PERIPHERAL VASCULAR DISEASE, UNSPECIFIED (12) Status post coronary artery stent placement Code(s): Z95.5 - PRESENCE OF CORONARY ANGIOPLASTY IMPLANT AND GRAFT Assessment/Plan Tudorza BID IV Medrol same dose O2 as needed BD TX VTE prophylaxis antitussives chest x-ray DR VALERO
[2016-08-29] MEDS ORDERED: MAGNESIUM HYDROX 2400MG/30ML ORAL SUSPENSION 30 ML CUP PO ONE (11:11)
[2016-08-29] MEDS ORDERED: INSULIN (NOVOLOG) ASPART 100 UNITS/ML 10ML VIAL ONE ×3 (11:44→21:25)
--- NOTE | 2016-08-29 12:22 | PN ---
Progress Note, Physician History of Present Illness: The patient is an 86-year-old whte male, with a significant past medical history of asthma, CAD, HTN, diastolic CHF (2015 ECHO) and hypercholesterolemia , who presents to the ED with 3 days of sore throat, cough, chest congestion, and shortness of breath. Patient was placed on Z-Bert by PCP. Pt states that he decided to report to the ED today due to worsening shortness of breath. He also reports experiencing diarrhea, nausea, and vomiting. - Current Medication List Current Medications: Active Medications Aclidinium [place] (Tudorza -) 1 puff IH BID [facility] Last Admin: 08/29/16 09:06 Dose: 1 puff Albuterol Sulfate (Ventolin 0.083% Nebulizer Soln -) 1 amp NEB Q4H PRN PRN Reason: SHORT OF BREATH/WHEEZING Albuterol Sulfate (Ventolin 0.083% Nebulizer Soln -) 1 amp NEB QIDR [facility] Last Admin: 08/29/16 06:04 Dose: 1 amp Amlodipine Besylate (Norvasc -) 10 mg PO DAILY [facility] Last Admin: 08/29/16 09:05 Dose: 10 mg Atorvastatin [place]cium (Lipitor -) 40 mg PO HS [facility] Last Admin: 08/28/16 22:02 Dose: 40 mg Azithromycin (Zithromax 500mg Ivpb (Pre-Docked)) 500 mg IVPB DAILY [facility] Last Admin: 08/29/16 09:06 Dose: 500 mg Ceftriaxone Sodium (Rocephin 1gm Ivpb (Pre-Docked)) 1 gm IVPB DAILY [facility] Last Admin: 08/29/16 09:05 Dose: 1 gm Cilostazol (Pletal -) 100 mg PO BID [facility] Last Admin: 08/29/16 09:21 Dose: 100 mg Docusate Sodium (Colace -) 100 mg PO BID [facility] Last Admin: 08/29/16 09:04 Dose: 100 mg Guaifenesin/Codeine Phosphate (Robitussin Ac -) 10 ml PO Q8H PRN PRN Reason: COUGH Heparin Sodium (Porcine) (Heparin -) 5,000 unit SQ BID [facility] Last Admin: 08/29/16 09:05 Dose: 5,000 unit Insulin Aspart (Novolog Vial Sliding Scale -) 1 vial SQ ACHS [facility] PRN Reason: Protocol Last Admin: 08/29/16 11:47 Dose: Not Given Losartan Potassium (Cozaar -) 25 mg PO DAILY [facility] Last Admin: 08/29/16 09:05 Dose: 25 mg Methylprednisolone Sodium Succinate (Solu-Medrol -) 60 mg IVPB Q8H-IV [facility] Last Admin: 08/29/16 09:03 Dose: 60 mg Metoprolol Succinate (Toprol Xl -) 25 mg PO DAILY [facility] Last Admin: 08/29/16 09:05 Dose: 25 mg Pantoprazole Sodium (Protonix -) 20 mg PO DAILY [facility] Last Admin: 08/29/16 09:04 Dose: 20 mg Tamsulosin HCl (Flomax -) 0.4 mg PO DAILY@0830 [facility] Last Admin: 08/29/16 08:55 Dose: 0.4 mg - Objective Vital Signs: Vital Signs Temperature 98 F 08/29/16 11:28 Pulse Rate 88 08/29/16 11:28 Respiratory Rate 18 08/29/16 11:28 Blood Pressure 130/63 08/29/16 11:28 O2 Sat by Pulse Oximetry (%) 93 L 08/29/16 10:50 Eyes: Yes: WNL, Conjunctiva Clear, EOM Intact HENT: Yes: WNL, Atraumatic, Normocephalic Neck: Yes: WNL, Supple, Trachea Midline Cardiovascular: Yes: WNL, Regular Rate and Rhythm Respiratory: Yes: WNL, Regular, CTA Bilaterally Gastrointestinal: Yes: WNL, Normal Bowel Sounds Genitourinary: Yes: WNL Musculoskeletal: Yes: WNL Extremities: Yes: WNL Edema: Yes Edema: LLE: 2+ Integumentary: Yes: WNL Neurological: Yes: WNL, Alert, Oriented ...Motor Strength: WNL Psychiatric: Yes: WNL Labs: CBC, BMP 08/29/16 05:57 08/29/16 05:57 INR, PTT INR 1.07 (0.82-1.09) 08/26/16 03:38 Assessment/Plan (1) Acute exacerbation of chronic obstructive pulmonary disease (COPD) Assessment/Plan: bronchodilators, steroids, and antibiotics per contact center manager. Code(s): J44.1 - CHRONIC OBSTRUCTIVE PULMONARY DISEASE W (ACUTE) EXACERBATION (2) BPH (benign prostatic hyperplasia) Code(s): N40.0 - BENIGN PROSTATIC HYPERPLASIA WITHOUT LOWER URINRY TRACT SYMP (3) Elevated fasting blood sugar Code(s): R73.01 - IMPAIRED FASTING GLUCOSE (4) History of abdominal aortic aneurysm (AAA) repair Code(s): Z98.890 - OTHER SPECIFIED POSTPROCEDURAL STATES (5) Status post femoral-popliteal bypass surgery Code(s): Z95.828 - PRESENCE OF OTHER VASCULAR IMPLANTS AND GRAFTS (6) Abdominal aortic aneurysm Code(s): I71.4 - ABDOMINAL AORTIC ANEURYSM, WITHOUT RUPTURE Qualifiers: Presence of rupture: without rupture Qualified Code(s): I71.4 - Abdominal aortic aneurysm, without rupture (7) CAD (coronary artery disease) Code(s): I25.10 - ATHSCL HEART DISEASE OF [place] CORONARY ARTERY W/O ANG PCTRS Qualifiers: Coronary Disease-Associated Artery/Lesion type: [place] artery [place] vs. transplanted heart: [place] heart Associated angina: without angina Qualified Code(s): I25.10 - Atherosclerotic heart disease of [place] coronary artery without angina pectoris (8) Chronic kidney disease Code(s): N18.9 - CHRONIC KIDNEY DISEASE, UNSPECIFIED Qualifiers: Chronic kidney disease stage: unspecified stage Qualified Code(s): N18.9 - Chronic kidney disease, unspecified (9) Cough Code(s): R05 - COUGH (10) Diastolic dysfunction without heart failure Code(s): I51.9 - HEART DISEASE, UNSPECIFIED (11) Enlarged prostate with lower urinary tract symptoms (LUTS) Code(s): N40.1 - BENIGN PROSTATIC HYPERPLASIA WITH LOWER URINARY TRACT SYMP (12) Hyperlipidemia Assessment/Plan: total cholesterol 137 Continue lipitor. Code(s): E78.5 - HYPERLIPIDEMIA, UNSPECIFIED Qualifiers: Hyperlipidemia type: Pure hypercholesterolemia (13) Hypertension Assessment/Plan: Continue present medications. Code(s): I10 - ESSENTIAL (PRIMARY) HYPERTENSION (14) Peripheral artery disease Assessment/Plan: On Pletal. COntinue aggressive Rx of cholesterol with statin, diet modification, and exercise. Code(s): I73.9 - PERIPHERAL VASCULAR DISEASE, UNSPECIFIED (15) Pneumonia Assessment/Plan: Continue antibiotics; fu cultures. Code(s): J18.9 - PNEUMONIA, UNSPECIFIED ORGANISM Qualifiers: Pneumonia type: due to unspecified organism Laterality: left Lung location: lower lobe of lung Qualified Code(s): J18.1 - Lobar pneumonia, unspecified organism (16) Status post coronary artery stent placement Code(s): Z95.5 - PRESENCE OF CORONARY ANGIOPLASTY IMPLANT AND GRAFT (17) Renal dysfunction Code(s): N28.9 - DISORDER OF KIDNEY AND URETER, UNSPECIFIED
[2016-08-29] MEDS: guaiFENesin/CODEINE 10 ML UNIT-DOSE CUPS PO PRN ×2 (14:34→21:18)
--- NOTE | 2016-08-29 17:23 | PN ---
Progress Note, Physician History of Present Illness: Pt still coughing. Pt w/o CP, palp, SOB, abd pain. - Current Medication List Current Medications: Active Medications Aclidinium [place] (Tudorza -) 1 puff IH BID [facility] Last Admin: 08/29/16 09:06 Dose: 1 puff Albuterol Sulfate (Ventolin 0.083% Nebulizer Soln -) 1 amp NEB Q4H PRN PRN Reason: SHORT OF BREATH/WHEEZING Albuterol Sulfate (Ventolin 0.083% Nebulizer Soln -) 1 amp NEB QIDR [facility] Last Admin: 08/29/16 13:00 Dose: 1 amp Amlodipine Besylate (Norvasc -) 10 mg PO DAILY [facility] Last Admin: 08/29/16 09:05 Dose: 10 mg Atorvastatin Calcium (Lipitor -) 40 mg PO HS [facility] Last Admin: 08/28/16 22:02 Dose: 40 mg Azithromycin (Zithromax 500mg Ivpb (Pre-Docked)) 500 mg IVPB DAILY [facility] Last Admin: 08/29/16 09:06 Dose: 500 mg Ceftriaxone Sodium (Rocephin 1gm Ivpb (Pre-Docked)) 1 gm IVPB DAILY [facility] Last Admin: 08/29/16 09:05 Dose: 1 gm Cilostazol (Pletal -) 100 mg PO BID [facility] Last Admin: 08/29/16 09:21 Dose: 100 mg Docusate Sodium (Colace -) 100 mg PO BID [facility] Last Admin: 08/29/16 09:04 Dose: 100 mg Guaifenesin/Codeine Phosphate (Robitussin Ac -) 10 ml PO Q8H PRN PRN Reason: COUGH Last Admin: 08/29/16 14:34 Dose: 10 ml Heparin Sodium (Porcine) (Heparin -) 5,000 unit SQ BID [facility] Last Admin: 08/29/16 09:05 Dose: 5,000 unit Insulin Aspart (Novolog Vial Sliding Scale -) 1 vial SQ ACHS [facility] PRN Reason: Protocol Last Admin: 08/29/16 16:41 Dose: 2 units Losartan Potassium (Cozaar -) 25 mg PO DAILY [facility] Last Admin: 08/29/16 09:05 Dose: 25 mg Methylprednisolone Sodium Succinate (Solu-Medrol -) 60 mg IVPB Q8H-IV [facility] Last Admin: 08/29/16 09:03 Dose: 60 mg Metoprolol Succinate (Toprol Xl -) 25 mg PO DAILY [facility] Last Admin: 08/29/16 09:05 Dose: 25 mg Pantoprazole Sodium (Protonix -) 20 mg PO DAILY [facility] Last Admin: 08/29/16 09:04 Dose: 20 mg Tamsulosin HCl (Flomax -) 0.4 mg PO DAILY@0830 [facility] Last Admin: 08/29/16 08:55 Dose: 0.4 mg - Objective Vital Signs: Vital Signs Temperature 97.6 F 08/29/16 13:29 Pulse Rate 92 H 08/29/16 13:29 Respiratory Rate 18 08/29/16 13:29 Blood Pressure 121/81 08/29/16 13:29 O2 Sat by Pulse Oximetry (%) 96 08/29/16 11:00 Constitutional: Yes: No Distress, Calm Cardiovascular: Yes: Regular Rate and Rhythm, S1, S2 Respiratory: Yes: Regular, Rhonchi (scattered). No: Wheezes Gastrointestinal: Yes: Normal Bowel Sounds, Soft Edema: No Neurological: Yes: Alert, Oriented Labs: CBC, BMP 08/29/16 05:57 08/29/16 05:57 INR, PTT INR 1.07 (0.82-1.09) 08/26/16 03:38 Problem List - Problems (1) Acute exacerbation of chronic obstructive pulmonary disease (COPD) Code(s): J44.1 - CHRONIC OBSTRUCTIVE PULMONARY DISEASE W (ACUTE) EXACERBATION (2) CAD (coronary artery disease) Code(s): I25.10 - ATHSCL HEART DISEASE OF [place] CORONARY ARTERY W/O ANG PCTRS Qualifiers: Coronary Disease-Associated Artery/Lesion type: [place] artery [place] vs. transplanted heart: [place] heart Associated angina: without angina Qualified Code(s): I25.10 - Atherosclerotic heart disease of [place] coronary artery without angina pectoris (3) Chronic kidney disease Code(s): N18.9 - CHRONIC KIDNEY DISEASE, UNSPECIFIED Qualifiers: Chronic kidney disease stage: unspecified stage Qualified Code(s): N18.9 - Chronic kidney disease, unspecified (4) History of abdominal aortic aneurysm (AAA) repair Code(s): Z98.890 - OTHER SPECIFIED POSTPROCEDURAL STATES (5) Hypertension Code(s): I10 - ESSENTIAL (PRIMARY) HYPERTENSION (6) Status post femoral-popliteal bypass surgery Code(s): Z95.828 - PRESENCE OF OTHER VASCULAR IMPLANTS AND GRAFTS (7) BPH (benign prostatic hyperplasia) Code(s): N40.0 - BENIGN PROSTATIC HYPERPLASIA WITHOUT LOWER URINRY TRACT SYMP (8) Elevated fasting blood sugar Code(s): R73.01 - IMPAIRED FASTING GLUCOSE (9) Hypernatremia Code(s): E87.0 - HYPEROSMOLALITY AND HYPERNATREMIA Assessment/Plan Pt on IV abtx, steroids- to taper per Pulm. Pulmonary consult appreciated. Cardi consult appreciated DVT [prophylaxis. AM labs.
[2016-08-29] MEDS: ATORVASTATIN CA 40 MG TABLET (FP) PO SCH (21:17)
[2016-08-29] MEDS: ACETAMINOPHEN 325 MG TABLET (FP) PO PRN (21:34)
[2016-08-30] MEDS: methylPREDNISolone NA SUCC 125 MG/2 ML VIAL IVPB SCH ×4 (01:24→21:48)
[2016-08-30] MEDS: INSULIN SLIDING SCALE (NOVOLOG) 1 VIAL SQ SCH ×4 (06:06→23:49)
[2016-08-30] MEDS: ACETAMINOPHEN 325 MG TABLET (FP) PO PRN ×2 (06:08→21:50)
[2016-08-30] MEDS: ALBUTEROL SO4 0.083% IH SOL 2.5 MG/3 ML VIAL.NEB. NEB SCH ×4 (06:35→16:45)
[2016-08-30] MEDS: TAMSULOSIN HCL 0.4 MG CAP.ER.24H (FP) PO SCH (08:26)
[2016-08-30 08:53] LABS: MCH 32.8 pg (25.7-33.7); MCHC 33.7 g/dl (32.0-35.9); MEAN CELL VOLUME 97.3 fl (80-96); MEAN PLT VOLUME 8.9 fl (7.5-11.1); PLATELET COUNT 124 K/MM3 (134-434); WHITE BLOOD COUNT 8.3 K/mm3 (4.0-10.0)
[2016-08-30] MEDS ORDERED: PT OWN MED DRAWER 7, Y5N ONE ×2 (09:04→21:23)
[2016-08-30] MEDS: AZITHROMYCIN IVPB 500 MG/250 ML D5W PRE-DOCKED IVPB SCH (09:20)
[2016-08-30] MEDS: cefTRIAXone 1 GM/50 ML BAG (PRE-DOCKED) IVPB SCH (09:20)
[2016-08-30] MEDS: HEPARIN NA (PORCINE) 5,000 UNITS/ML 1ML VIAL SQ SCH ×2 (09:20→21:47)
[2016-08-30 09:21] LABS: ANION GAP 10 (8-16); CALCIUM 8.7 mg/dL (8.5-10.1); CO2 25 mmol/L (21-32); GLUCOSE,RANDOM 218 mg/dL (74-106)
[2016-08-30] MEDS: amLODIPine BESYLATE 10 MG TABLET (FP) PO SCH (09:21)
[2016-08-30] MEDS: PANTOPRAZOLE 20 MG TABLET (FP) PO SCH (09:21)
[2016-08-30] MEDS: DOCUSATE SODIUM 100 MG CAPSULE (FP) PO SCH ×2 (09:21→21:47)
[2016-08-30] MEDS: CILOSTAZOL 100 MG TABLET PO SCH ×2 (09:21→21:48)
[2016-08-30] MEDS: METOPROLOL SUCCINATE 25 MG TAB.SR.24H (FP) PO SCH (09:21)
[2016-08-30] MEDS: LOSARTAN POTASSIUM 25 MG TABLET PO SCH (09:21)
[2016-08-30] MEDS: ACLIDINIUM BROMIDE 400 MCG/INH AERO.POWD IH SCH ×2 (09:22→21:45)
[2016-08-30 09:23] LABS: CREATININE 2.1 mg/dL (0.7-1.3)
--- NOTE | 2016-08-30 10:27 | PN ---
Progress Note, Physician History of Present Illness: Pt still coughing, not controlled, associated with right side pain now Pt w/o CP, palp, SOB, abd pain. + constipation - Current Medication List Current Medications: Active Medications Acetaminophen (Tylenol -) 650 mg PO Q6H PRN PRN Reason: FEVER OR PAIN Last Admin: 08/30/16 06:08 Dose: 650 mg Aclidinium [place] (Tudorza -) 1 puff IH BID [facility] Last Admin: 08/30/16 09:22 Dose: 1 puff Albuterol Sulfate (Ventolin 0.083% Nebulizer Soln -) 1 amp NEB Q4H PRN PRN Reason: SHORT OF BREATH/WHEEZING Albuterol Sulfate (Ventolin 0.083% Nebulizer Soln -) 1 amp NEB QIDR [facility] Last Admin: 08/30/16 06:35 Dose: 1 amp Amlodipine Besylate (Norvasc -) 10 mg PO DAILY [facility] Last Admin: 08/30/16 09:21 Dose: 10 mg Atorvastatin Calcium (Lipitor -) 40 mg PO HS [facility] Last Admin: 08/29/16 21:17 Dose: 40 mg Azithromycin (Zithromax 500mg Ivpb (Pre-Docked)) 500 mg IVPB DAILY [facility] Last Admin: 08/30/16 09:20 Dose: 500 mg Ceftriaxone Sodium (Rocephin 1gm Ivpb (Pre-Docked)) 1 gm IVPB DAILY [facility] Last Admin: 08/30/16 09:20 Dose: 1 gm Cilostazol (Pletal -) 100 mg PO BID [facility] Last Admin: 08/30/16 09:21 Dose: 100 mg Docusate Sodium (Colace -) 100 mg PO BID [facility] Last Admin: 08/30/16 09:21 Dose: 100 mg Guaifenesin/Codeine Phosphate (Robitussin Ac -) 10 ml PO Q8H PRN PRN Reason: COUGH Last Admin: 08/29/16 21:18 Dose: 10 ml Heparin Sodium (Porcine) (Heparin -) 5,000 unit SQ BID [facility] Last Admin: 08/30/16 09:20 Dose: 5,000 unit Insulin Aspart (Novolog Vial Sliding Scale -) 1 vial SQ ACHS [facility] PRN Reason: Protocol Last Admin: 08/30/16 06:06 Dose: Not Given Losartan Potassium (Cozaar -) 25 mg PO DAILY [facility] Last Admin: 08/30/16 09:21 Dose: 25 mg Methylprednisolone Sodium Succinate (Solu-Medrol -) 60 mg IVPB Q8H-IV [facility] Last Admin: 08/30/16 09:20 Dose: 60 mg Metoprolol Succinate (Toprol Xl -) 25 mg PO DAILY [facility] Last Admin: 08/30/16 09:21 Dose: 25 mg Pantoprazole Sodium (Protonix -) 20 mg PO DAILY [facility] Last Admin: 08/30/16 09:21 Dose: 20 mg Tamsulosin HCl (Flomax -) 0.4 mg PO DAILY@0830 [facility] Last Admin: 08/30/16 08:26 Dose: 0.4 mg - Objective Vital Signs: Vital Signs Temperature 98.7 F 08/30/16 06:10 Pulse Rate 80 08/30/16 10:16 Respiratory Rate 18 08/30/16 06:10 Blood Pressure 130/58 08/30/16 06:10 O2 Sat by Pulse Oximetry (%) 97 08/30/16 10:16 Constitutional: Yes: No Distress, Calm Cardiovascular: Yes: Regular Rate and Rhythm, S1, S2 Respiratory: Yes: Regular, Rhonchi (more at bases, L > R), Other (coarse BS) Gastrointestinal: Yes: Normal Bowel Sounds, Soft. No: Palpable Mass, Tenderness Edema: No Neurological: Yes: Alert, Oriented Labs: CBC, BMP 08/30/16 07:20 08/30/16 07:20 INR, PTT INR 1.07 (0.82-1.09) 08/26/16 03:38 Problem List - Problems (1) Acute exacerbation of chronic obstructive pulmonary disease (COPD) Code(s): J44.1 - CHRONIC OBSTRUCTIVE PULMONARY DISEASE W (ACUTE) EXACERBATION (2) CAD (coronary artery disease) Code(s): I25.10 - ATHSCL HEART DISEASE OF [place] CORONARY ARTERY W/O ANG PCTRS Qualifiers: Coronary Disease-Associated Artery/Lesion type: [place] artery [place] vs. transplanted heart: [place] heart Associated angina: without angina Qualified Code(s): I25.10 - Atherosclerotic heart disease of [place] coronary artery without angina pectoris (3) Chronic kidney disease Code(s): N18.9 - CHRONIC KIDNEY DISEASE, UNSPECIFIED Qualifiers: Chronic kidney disease stage: unspecified stage Qualified Code(s): N18.9 - Chronic kidney disease, unspecified (4) History of abdominal aortic aneurysm (AAA) repair Code(s): Z98.890 - OTHER SPECIFIED POSTPROCEDURAL STATES (5) Hypertension Code(s): I10 - ESSENTIAL (PRIMARY) HYPERTENSION (6) Status post femoral-popliteal bypass surgery Code(s): Z95.828 - PRESENCE OF OTHER VASCULAR IMPLANTS AND GRAFTS (7) BPH (benign prostatic hyperplasia) Code(s): N40.0 - BENIGN PROSTATIC HYPERPLASIA WITHOUT LOWER URINRY TRACT SYMP (8) Elevated fasting blood sugar Code(s): R73.01 - IMPAIRED FASTING GLUCOSE (9) Hypernatremia Code(s): E87.0 - HYPEROSMOLALITY AND HYPERNATREMIA (10) Constipation Assessment/Plan: increase MIralax, add senna I advice pt to increase PO fluid intake Code(s): K59.00 - CONSTIPATION, UNSPECIFIED Assessment/Plan Pt on IV abtx, steroids- now BID; to taper per Pulm. Pulmonary consult appreciated. Cardi consult appreciated DVT [prophylaxis. AM labs.
--- NOTE | 2016-08-30 11:16 | PN ---
Progress Note (short form) - Note Progress Note: Breathing feels overall better. Still with dry cough. Reports symptoms of mild intermittent GERD and mild post nasal drip. No acute events overnight. Intake & Output 08/27/16 08/28/16 08/29/16 08/30/16 23:59 23:59 23:59 23:59 Intake Total 1230 640 560 50 Output Total 1000 1200 500 Balance 230 -560 60 50 Weight 181 lb 2 oz 181 lb 3 oz Last Vital Signs Temp Pulse Resp BP Pulse Ox 98.7 F 80 18 130/58 97 08/30/16 06:10 08/30/16 10:16 08/30/16 06:10 08/30/16 06:10 08/30/16 10:16 Active Medications Acetaminophen (Tylenol -) 650 mg PO Q6H PRN PRN Reason: FEVER OR PAIN Last Admin: 08/30/16 06:08 Dose: 650 mg Aclidinium [place] (Tudorza -) 1 puff IH BID [facility] Last Admin: 08/30/16 09:22 Dose: 1 puff Albuterol Sulfate (Ventolin 0.083% Nebulizer Soln -) 1 amp NEB Q4H PRN PRN Reason: SHORT OF BREATH/WHEEZING Albuterol Sulfate (Ventolin 0.083% Nebulizer Soln -) 1 amp NEB QIDR [facility] Last Admin: 08/30/16 06:35 Dose: 1 amp Amlodipine Besylate (Norvasc -) 10 mg PO DAILY [facility] Last Admin: 08/30/16 09:21 Dose: 10 mg Atorvastatin Calcium (Lipitor -) 40 mg PO HS [facility] Last Admin: 08/29/16 21:17 Dose: 40 mg Azithromycin (Zithromax 500mg Ivpb (Pre-Docked)) 500 mg IVPB DAILY [facility] Last Admin: 08/30/16 09:20 Dose: 500 mg Ceftriaxone Sodium (Rocephin 1gm Ivpb (Pre-Docked)) 1 gm IVPB DAILY [facility] Last Admin: 08/30/16 09:20 Dose: 1 gm Cilostazol (Pletal -) 100 mg PO BID [facility] Last Admin: 08/30/16 09:21 Dose: 100 mg Codeine Sulfate (Codeine Sulfate -) 30 mg PO Q8H PRN PRN Reason: COUGH Docusate Sodium (Colace -) 100 mg PO BID [facility] Last Admin: 08/30/16 09:21 Dose: 100 mg Guaifenesin/Codeine Phosphate (Robitussin Ac -) 10 ml PO Q8H PRN PRN Reason: COUGH Last Admin: 08/29/16 21:18 Dose: 10 ml Heparin Sodium (Porcine) (Heparin -) 5,000 unit SQ BID [facility] Last Admin: 08/30/16 09:20 Dose: 5,000 unit Insulin Aspart (Novolog Vial Sliding Scale -) 1 vial SQ ACHS [facility] PRN Reason: Protocol Last Admin: 08/30/16 06:06 Dose: Not Given Losartan Potassium (Cozaar -) 25 mg PO DAILY [facility] Last Admin: 08/30/16 09:21 Dose: 25 mg Methylprednisolone Sodium Succinate (Solu-Medrol -) 60 mg IVPB Q8H-IV [facility] Last Admin: 08/30/16 09:20 Dose: 60 mg Metoprolol Succinate (Toprol Xl -) 25 mg PO DAILY [facility] Last Admin: 08/30/16 09:21 Dose: 25 mg Pantoprazole Sodium (Protonix -) 20 mg PO DAILY [facility] Last Admin: 08/30/16 09:21 Dose: 20 mg Polyethylene Glycol (Miralax (For Daily Use) -) 17 gm PO BID [facility] Senna (Senna -) 1 tab PO BID [facility] Tamsulosin HCl (Flomax -) 0.4 mg PO DAILY@0830 [facility] Last Admin: 08/30/16 08:26 Dose: 0.4 mg Constitutional: Yes: No Distress Eyes: Yes: Conjunctiva Clear, EOM Intact HENT: Yes: Atraumatic, Normocephalic Neck: Yes: Supple, Trachea Midline Cardiovascular: Yes: Regular Rate and Rhythm Respiratory: Yes: Cough, Diminished, On Nasal O2, Rhonchi. No: Accessory Muscle Use, Rales, Stridor, Tachypnea, Wheezes ...Inspection: Yes: WNL ...Clubbing: No Gastrointestinal: Yes: Normal Bowel Sounds, Soft Renal/: Yes: WNL Musculoskeletal: Yes: WNL Extremities: Yes: WNL Edema: No Peripheral Pulses WNL: Yes Integumentary: Yes: WNL Neurological: Yes: WNL, Alert, Oriented ...Motor Strength: WNL Psychiatric: Yes: WNL, Alert, Oriented Labs: Laboratory Results - last 24 hr 08/29/16 08/29/16 08/29/16 11:47 16:34 21:23 WBC RBC Hgb Hct MCV MCHC RDW Plt Count MPV Sodium Potassium Chloride Carbon Dioxide Anion Gap BUN Creatinine POC Glucometer 182 239 219 Random Glucose Calcium 08/30/16 08/30/16 08/30/16 06:03 07:20 07:20 WBC 8.3 RBC 3.89 L Hgb 12.8 Hct 37.9 MCV 97.3 H MCHC 33.7 RDW 14.0 Plt Count 124 L MPV 8.9 Sodium 139 Potassium 4.9 Chloride 104 Carbon Dioxide 25 Anion Gap 10 BUN 58 H Creatinine 2.1 H POC Glucometer 198 Random Glucose 218 H Calcium 8.7 Problem List - Problems (1) COPD (chronic obstructive pulmonary disease) Code(s): J44.9 - CHRONIC OBSTRUCTIVE PULMONARY DISEASE, UNSPECIFIED (2) Abdominal aortic aneurysm Code(s): I71.4 - ABDOMINAL AORTIC ANEURYSM, WITHOUT RUPTURE Qualifiers: Presence of rupture: without rupture Qualified Code(s): I71.4 - Abdominal aortic aneurysm, without rupture (3) CAD (coronary artery disease) Code(s): I25.10 - ATHSCL HEART DISEASE OF [place] CORONARY ARTERY W/O ANG PCTRS Qualifiers: Coronary Disease-Associated Artery/Lesion type: [place] artery [place] vs. transplanted heart: [place] heart Associated angina: without angina Qualified Code(s): I25.10 - Atherosclerotic heart disease of [place] coronary artery without angina pectoris (4) COPD exacerbation Code(s): J44.1 - CHRONIC OBSTRUCTIVE PULMONARY DISEASE W (ACUTE) EXACERBATION (5) Chronic kidney disease Code(s): N18.9 - CHRONIC KIDNEY DISEASE, UNSPECIFIED Qualifiers: Chronic kidney disease stage: unspecified stage Qualified Code(s): N18.9 - Chronic kidney disease, unspecified (6) Cough Code(s): R05 - COUGH (7) Enlarged prostate with lower urinary tract symptoms (LUTS) Code(s): N40.1 - BENIGN PROSTATIC HYPERPLASIA WITH LOWER URINARY TRACT SYMP (8) Hyperlipidemia Code(s): E78.5 - HYPERLIPIDEMIA, UNSPECIFIED Qualifiers: Hyperlipidemia type: Pure hypercholesterolemia (9) Hypertension Code(s): I10 - ESSENTIAL (PRIMARY) HYPERTENSION (10) Left lumbar pain Code(s): M54.5 - LOW BACK PAIN (11) Peripheral artery disease Code(s): I73.9 - PERIPHERAL VASCULAR DISEASE, UNSPECIFIED (12) Status post coronary artery stent placement Code(s): Z95.5 - PRESENCE OF CORONARY ANGIOPLASTY IMPLANT AND GRAFT Assessment/Plan Tudorza BID Taper IV Medrol ABX O2 as needed BD TX VTE prophylaxis No smoking Dr Reynoso. Problem List - Problems (1) COPD (chronic obstructive pulmonary disease) Code(s): J44.9 - CHRONIC OBSTRUCTIVE PULMONARY DISEASE, UNSPECIFIED (2) Abdominal aortic aneurysm Code(s): I71.4 - ABDOMINAL AORTIC ANEURYSM, WITHOUT RUPTURE Qualifiers: Presence of rupture: without rupture Qualified Code(s): I71.4 - Abdominal aortic aneurysm, without rupture (3) CAD (coronary artery disease) Code(s): I25.10 - ATHSCL HEART DISEASE OF [place] CORONARY ARTERY W/O ANG PCTRS Qualifiers: Coronary Disease-Associated Artery/Lesion type: [place] artery [place] vs. transplanted heart: [place] heart Associated angina: without angina Qualified Code(s): I25.10 - Atherosclerotic heart disease of [place] coronary artery without angina pectoris (4) COPD exacerbation Code(s): J44.1 - CHRONIC OBSTRUCTIVE PULMONARY DISEASE W (ACUTE) EXACERBATION (5) Chronic kidney disease Code(s): N18.9 - CHRONIC KIDNEY DISEASE, UNSPECIFIED Qualifiers: Chronic kidney disease stage: unspecified stage Qualified Code(s): N18.9 - Chronic kidney disease, unspecified (6) Cough Code(s): R05 - COUGH (7) Enlarged prostate with lower urinary tract symptoms (LUTS) Code(s): N40.1 - BENIGN PROSTATIC HYPERPLASIA WITH LOWER URINARY TRACT SYMP (8) Hyperlipidemia Code(s): E78.5 - HYPERLIPIDEMIA, UNSPECIFIED Qualifiers: Hyperlipidemia type: Pure hypercholesterolemia (9) Hypertension Code(s): I10 - ESSENTIAL (PRIMARY) HYPERTENSION (10) Left lumbar pain Code(s): M54.5 - LOW BACK PAIN (11) Peripheral artery disease Code(s): I73.9 - PERIPHERAL VASCULAR DISEASE, UNSPECIFIED (12) Status post coronary artery stent placement Code(s): Z95.5 - PRESENCE OF CORONARY ANGIOPLASTY IMPLANT AND GRAFT
[2016-08-30] MEDS ORDERED: INSULIN (NOVOLOG) ASPART 100 UNITS/ML 10ML VIAL ONE ×2 (11:43→17:01)
[2016-08-30] MEDS: POLYETHYLENE GLYCOL 3350 119 GM BTL PO SCH ×2 (11:48→21:55)
[2016-08-30] MEDS: SENNOSIDES 8.6MG TABLET (FP) PO SCH ×2 (11:48→21:48)
[2016-08-30] MEDS: FLUTICASONE PROP 0.05% 16 GM NASAL SPRAY NS SCH ×2 (12:33→21:47)
--- NOTE | 2016-08-30 16:05 | PN ---
Progress Note, Physician Chief Complaint: Pt A&Ox3; c/o right posterior thorax pain when he coughs. Pt's brother and sister are visiting. History of Present Illness: The patient is an 86-year-old whte male, with a significant past medical history of asthma, CAD, HTN, diastolic CHF (2015 ECHO) and hypercholesterolemia , who presents to the ED with 3 days of sore throat, cough, chest congestion, and shortness of breath. Patient was placed on Z-Bert by PCP. Pt states that he decided to report to the ED today due to worsening shortness of breath. He also reports experiencing diarrhea, nausea, and vomiting. The patient denies any fever, chills, or abdominal pain. - Current Medication List Current Medications: Active Medications Acetaminophen (Tylenol -) 650 mg PO Q6H PRN PRN Reason: FEVER OR PAIN Last Admin: 08/30/16 06:08 Dose: 650 mg Aclidinium [place] (Tudorza -) 1 puff IH BID [facility] Last Admin: 08/30/16 09:22 Dose: 1 puff Albuterol Sulfate (Ventolin 0.083% Nebulizer Soln -) 1 amp NEB Q4H PRN PRN Reason: SHORT OF BREATH/WHEEZING Albuterol Sulfate (Ventolin 0.083% Nebulizer Soln -) 1 amp NEB QIDR [facility] Last Admin: 08/30/16 11:44 Dose: 1 amp Amlodipine Besylate (Norvasc -) 10 mg PO DAILY [facility] Last Admin: 08/30/16 09:21 Dose: 10 mg Atorvastatin Calcium (Lipitor -) 40 mg PO HS [facility] Last Admin: 08/29/16 21:17 Dose: 40 mg Azithromycin (Zithromax 500mg Ivpb (Pre-Docked)) 500 mg IVPB DAILY [facility] Last Admin: 08/30/16 09:20 Dose: 500 mg Ceftriaxone Sodium (Rocephin 1gm Ivpb (Pre-Docked)) 1 gm IVPB DAILY [facility] Last Admin: 08/30/16 09:20 Dose: 1 gm Cilostazol (Pletal -) 100 mg PO BID [facility] Last Admin: 08/30/16 09:21 Dose: 100 mg Codeine Sulfate (Codeine Sulfate -) 30 mg PO Q8H PRN PRN Reason: COUGH Docusate Sodium (Colace -) 100 mg PO BID [facility] Last Admin: 08/30/16 09:21 Dose: 100 mg Fluticasone Propionate (Flonase -) 1 spray NS BID [facility] Last Admin: 08/30/16 12:33 Dose: 1 spray Guaifenesin/Codeine Phosphate (Robitussin Ac -) 10 ml PO Q8H PRN PRN Reason: COUGH Last Admin: 08/29/16 21:18 Dose: 10 ml Heparin Sodium (Porcine) (Heparin -) 5,000 unit SQ BID [facility] Last Admin: 08/30/16 09:20 Dose: 5,000 unit Insulin Aspart (Novolog Vial Sliding Scale -) 1 vial SQ ACHS [facility] PRN Reason: Protocol Last Admin: 08/30/16 11:48 Dose: 2 units Losartan Potassium (Cozaar -) 25 mg PO DAILY [facility] Last Admin: 08/30/16 09:21 Dose: 25 mg Methylprednisolone Sodium Succinate (Solu-Medrol -) 40 mg IVPB BID [facility] Last Admin: 08/30/16 12:30 Dose: Not Given Metoprolol Succinate (Toprol Xl -) 25 mg PO DAILY [facility] Last Admin: 08/30/16 09:21 Dose: 25 mg Polyethylene Glycol (Miralax (For Daily Use) -) 17 gm PO BID [facility] Last Admin: 08/30/16 11:48 Dose: 17 gm Ranitidine HCl (Zantac -) 150 mg PO BID [facility] Senna (Senna -) 1 tab PO BID [facility] Last Admin: 08/30/16 11:48 Dose: 1 tab Tamsulosin HCl (Flomax -) 0.4 mg PO DAILY@0830 [facility] Last Admin: 08/30/16 08:26 Dose: 0.4 mg - Objective Vital Signs: Vital Signs Temperature 97.5 F L 08/30/16 14:00 Pulse Rate 80 08/30/16 10:16 Respiratory Rate 18 08/30/16 10:00 Blood Pressure 104/58 08/30/16 10:00 O2 Sat by Pulse Oximetry (%) 97 08/30/16 10:16 Constitutional: Yes: Anxious Eyes: Yes: WNL HENT: Yes: WNL Neck: Yes: WNL Cardiovascular: Yes: S1, S2 Respiratory: Yes: Diminished, Other (c/o pain in right mid posterior thorax when he coughs) Gastrointestinal: Yes: Soft ...Rectal Exam: Yes: Deferred Genitourinary: No: Anuria Musculoskeletal: Yes: Back Pain Extremities: Yes: Cool Edema: No Peripheral Pulses WNL: Yes Neurological: Yes: Alert, Oriented Psychiatric: Yes: Alert, Oriented Labs: CBC, BMP 08/30/16 07:20 08/30/16 07:20 INR, PTT INR 1.07 (0.82-1.09) 08/26/16 03:38 Problem List - Problems (1) Acute exacerbation of chronic obstructive pulmonary disease (COPD) Assessment/Plan: bronchodilators, steroids, and antibiotics per dairy management specialist. Continues with dry cough; on pain medications for pain in back when coughs. No acute pathology on CXR; no JVD. Code(s): J44.1 - CHRONIC OBSTRUCTIVE PULMONARY DISEASE W (ACUTE) EXACERBATION (2) BPH (benign prostatic hyperplasia) Code(s): N40.0 - BENIGN PROSTATIC HYPERPLASIA WITHOUT LOWER URINRY TRACT SYMP (3) Elevated fasting blood sugar Code(s): R73.01 - IMPAIRED FASTING GLUCOSE (4) History of abdominal aortic aneurysm (AAA) repair Code(s): Z98.890 - OTHER SPECIFIED POSTPROCEDURAL STATES (5) Status post femoral-popliteal bypass surgery Code(s): Z95.828 - PRESENCE OF OTHER VASCULAR IMPLANTS AND GRAFTS (6) Abdominal aortic aneurysm Code(s): I71.4 - ABDOMINAL AORTIC ANEURYSM, WITHOUT RUPTURE Qualifiers: Presence of rupture: without rupture Qualified Code(s): I71.4 - Abdominal aortic aneurysm, without rupture (7) CAD (coronary artery disease) Code(s): I25.10 - ATHSCL HEART DISEASE OF [place] CORONARY ARTERY W/O ANG PCTRS Qualifiers: Coronary Disease-Associated Artery/Lesion type: [place] artery [place] vs. transplanted heart: [place] heart Associated angina: without angina Qualified Code(s): I25.10 - Atherosclerotic heart disease of [place] coronary artery without angina pectoris (8) Chronic kidney disease Code(s): N18.9 - CHRONIC KIDNEY DISEASE, UNSPECIFIED Qualifiers: Chronic kidney disease stage: unspecified stage Qualified Code(s): N18.9 - Chronic kidney disease, unspecified (9) Cough Code(s): R05 - COUGH (10) Diastolic dysfunction without heart failure Code(s): I51.9 - HEART DISEASE, UNSPECIFIED (11) Enlarged prostate with lower urinary tract symptoms (LUTS) Code(s): N40.1 - BENIGN PROSTATIC HYPERPLASIA WITH LOWER URINARY TRACT SYMP (12) Hyperlipidemia Assessment/Plan: total cholesterol 137 Continue lipitor. Code(s): E78.5 - HYPERLIPIDEMIA, UNSPECIFIED Qualifiers: Hyperlipidemia type: Pure hypercholesterolemia (13) Hypertension Assessment/Plan: Continue present medications (on losartan and amlodiine). Pain management (pain on coughing). Code(s): I10 - ESSENTIAL (PRIMARY) HYPERTENSION (14) Peripheral artery disease Assessment/Plan: On Pletal. COntinue aggressive Rx of cholesterol with statin, diet modification, and exercise. Code(s): I73.9 - PERIPHERAL VASCULAR DISEASE, UNSPECIFIED (15) Pneumonia Assessment/Plan: Continue antibiotics; f/u cultures. Code(s): J18.9 - PNEUMONIA, UNSPECIFIED ORGANISM Qualifiers: Pneumonia type: due to unspecified organism Laterality: left Lung location: lower lobe of lung Qualified Code(s): J18.1 - Lobar pneumonia, unspecified organism (16) Status post coronary artery stent placement Code(s): Z95.5 - PRESENCE OF CORONARY ANGIOPLASTY IMPLANT AND GRAFT (17) Renal dysfunction Assessment/Plan: avoid excessive dehydration; f/u with livestock caretaker. Code(s): N28.9 - DISORDER OF KIDNEY AND URETER, UNSPECIFIED (18) Acute constipation Assessment/Plan: no bowel movement for ? 7 days. On medications; Hydration. Encourage high-fiber diet. Code(s): K59.00 - CONSTIPATION, UNSPECIFIED
[2016-08-30] MEDS: guaiFENesin/CODEINE 10 ML UNIT-DOSE CUPS PO PRN (16:56)
[2016-08-30] MEDS: CODEINE SO4 30 MG TABLET PO PRN (16:56)
[2016-08-30] MEDS: ATORVASTATIN CA 40 MG TABLET (FP) PO SCH (21:48)
[2016-08-30] MEDS: RANITIDINE HCL 150 MG TABLET (FP) PO SCH (21:48)
[2016-08-31] MEDS: ALBUTEROL SO4 0.083% IH SOL 2.5 MG/3 ML VIAL.NEB. NEB SCH ×4 (06:45→18:35)
[2016-08-31] MEDS: CODEINE SO4 30 MG TABLET PO PRN (06:49)
[2016-08-31] MEDS: guaiFENesin/CODEINE 10 ML UNIT-DOSE CUPS PO PRN (06:49)
[2016-08-31] MEDS: INSULIN SLIDING SCALE (NOVOLOG) 1 VIAL SQ SCH ×4 (06:53→22:26)
[2016-08-31 08:48] LABS: ANION GAP 7 (8-16); CO2 29 mmol/L (21-32); GLUCOSE,RANDOM 172 mg/dL (74-106)
[2016-08-31] MEDS: TAMSULOSIN HCL 0.4 MG CAP.ER.24H (FP) PO SCH (08:48)
[2016-08-31 08:50] LABS: CALCIUM 8.7 mg/dL (8.5-10.1); CREATININE 1.9 mg/dL (0.7-1.3)
[2016-08-31] MEDS ORDERED: PT OWN MED DRAWER 7, Y5N ONE ×2 (10:50→21:50)
[2016-08-31] MEDS: AZITHROMYCIN IVPB 500 MG/250 ML D5W PRE-DOCKED IVPB SCH (10:55)
[2016-08-31] MEDS: methylPREDNISolone NA SUCC 125 MG/2 ML VIAL IVPB SCH ×2 (10:55→22:13)
[2016-08-31] MEDS: FLUTICASONE PROP 0.05% 16 GM NASAL SPRAY NS SCH ×2 (10:56→22:23)
[2016-08-31] MEDS: RANITIDINE HCL 150 MG TABLET (FP) PO SCH ×2 (10:57→22:13)
[2016-08-31] MEDS: HEPARIN NA (PORCINE) 5,000 UNITS/ML 1ML VIAL SQ SCH ×2 (10:57→22:14)
[2016-08-31] MEDS: POLYETHYLENE GLYCOL 3350 119 GM BTL PO SCH ×2 (10:57→22:14)
[2016-08-31] MEDS: SENNOSIDES 8.6MG TABLET (FP) PO SCH ×2 (10:57→22:13)
[2016-08-31] MEDS: METOPROLOL SUCCINATE 25 MG TAB.SR.24H (FP) PO SCH (10:57)
[2016-08-31] MEDS: CILOSTAZOL 100 MG TABLET PO SCH ×2 (10:57→22:15)
[2016-08-31] MEDS: DOCUSATE SODIUM 100 MG CAPSULE (FP) PO SCH ×2 (10:57→22:13)
[2016-08-31] MEDS: LOSARTAN POTASSIUM 25 MG TABLET PO SCH (10:58)
[2016-08-31] MEDS: amLODIPine BESYLATE 10 MG TABLET (FP) PO SCH (10:58)
[2016-08-31] MEDS: ACLIDINIUM BROMIDE 400 MCG/INH AERO.POWD IH SCH ×2 (10:58→22:23)
--- NOTE | 2016-08-31 11:06 | PN ---
Progress Note, Physician History of Present Illness: The patient is an 86-year-old whte male, with a significant past medical history of asthma, CAD, HTN, diastolic CHF (2015 ECHO) and hypercholesterolemia , who presents to the ED with 3 days of sore throat, cough, chest congestion, and shortness of breath. Patient was placed on Z-Bert by PCP. Pt states that he decided to report to the ED today due to worsening shortness of breath. He also reports experiencing diarrhea, nausea, and vomiting. - Current Medication List Current Medications: Active Medications Acetaminophen (Tylenol -) 650 mg PO Q6H PRN PRN Reason: FEVER OR PAIN Last Admin: 08/30/16 21:50 Dose: 650 mg Aclidinium [place] (Tudorza -) 1 puff IH BID [facility] Last Admin: 08/31/16 10:58 Dose: 1 puff Albuterol Sulfate (Ventolin 0.083% Nebulizer Soln -) 1 amp NEB QIDR [facility] Last Admin: 08/31/16 06:45 Dose: 1 amp Amlodipine Besylate (Norvasc -) 10 mg PO DAILY [facility] Last Admin: 08/31/16 10:58 Dose: 10 mg Atorvastatin Calcium (Lipitor -) 40 mg PO HS [facility] Last Admin: 08/30/16 21:48 Dose: 40 mg Azithromycin (Zithromax 500mg Ivpb (Pre-Docked)) 500 mg IVPB DAILY [facility] Last Admin: 08/31/16 10:55 Dose: 500 mg Ceftriaxone Sodium (Rocephin 1gm Ivpb (Pre-Docked)) 1 gm IVPB DAILY [facility] Last Admin: 08/30/16 09:20 Dose: 1 gm Cilostazol (Pletal -) 100 mg PO BID [facility] Last Admin: 08/31/16 10:57 Dose: 100 mg Codeine Sulfate (Codeine Sulfate -) 30 mg PO Q8H PRN PRN Reason: COUGH Last Admin: 08/31/16 06:49 Dose: 30 mg Docusate Sodium (Colace -) 100 mg PO BID [facility] Last Admin: 08/31/16 10:57 Dose: 100 mg Fluticasone Propionate (Flonase -) 1 spray NS BID [facility] Last Admin: 08/31/16 10:56 Dose: 1 spray Guaifenesin/Codeine Phosphate (Robitussin Ac -) 10 ml PO Q8H PRN PRN Reason: COUGH Last Admin: 08/31/16 06:49 Dose: 10 ml Heparin Sodium (Porcine) (Heparin -) 5,000 unit SQ BID [facility] Last Admin: 08/31/16 10:57 Dose: 5,000 unit Insulin Aspart (Novolog Vial Sliding Scale -) 1 vial SQ ACHS [facility] PRN Reason: Protocol Last Admin: 08/31/16 06:53 Dose: Not Given Losartan Potassium (Cozaar -) 25 mg PO DAILY [facility] Last Admin: 08/31/16 10:58 Dose: 25 mg Methylprednisolone Sodium Succinate (Solu-Medrol -) 40 mg IVPB BID [facility] Last Admin: 08/31/16 10:55 Dose: 40 mg Metoprolol Succinate (Toprol Xl -) 25 mg PO DAILY [facility] Last Admin: 08/31/16 10:57 Dose: 25 mg Polyethylene Glycol (Miralax (For Daily Use) -) 17 gm PO BID [facility] Last Admin: 08/31/16 10:57 Dose: 17 gm Ranitidine HCl (Zantac -) 150 mg PO BID [facility] Last Admin: 08/31/16 10:57 Dose: 150 mg Senna (Senna -) 1 tab PO BID [facility] Last Admin: 08/31/16 10:57 Dose: 1 tab Tamsulosin HCl (Flomax -) 0.4 mg PO DAILY@0830 [facility] Last Admin: 08/31/16 08:48 Dose: 0.4 mg - Objective Vital Signs: Vital Signs Temperature 98.3 F 08/31/16 05:58 Pulse Rate 82 08/31/16 05:58 Respiratory Rate 20 08/31/16 05:58 Blood Pressure 106/59 08/31/16 05:58 O2 Sat by Pulse Oximetry (%) 94 L 08/30/16 21:00 Eyes: Yes: WNL, Conjunctiva Clear, EOM Intact HENT: Yes: WNL, Atraumatic, Normocephalic Neck: Yes: WNL, Supple, Trachea Midline Cardiovascular: Yes: WNL, Regular Rate and Rhythm Respiratory: Yes: WNL, Regular, CTA Bilaterally Gastrointestinal: Yes: WNL, Normal Bowel Sounds Genitourinary: Yes: WNL Musculoskeletal: Yes: WNL Extremities: Yes: WNL Edema: No Integumentary: Yes: WNL Neurological: Yes: WNL, Alert, Oriented ...Motor Strength: WNL Psychiatric: Yes: WNL Labs: CBC, BMP 08/30/16 07:20 08/31/16 07:35 INR, PTT INR 1.07 (0.82-1.09) 08/26/16 03:38 Assessment/Plan - Problems (1) Acute exacerbation of chronic obstructive pulmonary disease (COPD) Assessment/Plan: bronchodilators, steroids, and antibiotics per english instructor. Continues with dry cough; on pain medications for pain in back when coughs. No acute pathology on CXR; no JVD. Code(s): J44.1 - CHRONIC OBSTRUCTIVE PULMONARY DISEASE W (ACUTE) EXACERBATION (2) BPH (benign prostatic hyperplasia) Code(s): N40.0 - BENIGN PROSTATIC HYPERPLASIA WITHOUT LOWER URINRY TRACT SYMP (3) Elevated fasting blood sugar Code(s): R73.01 - IMPAIRED FASTING GLUCOSE (4) History of abdominal aortic aneurysm (AAA) repair Code(s): Z98.890 - OTHER SPECIFIED POSTPROCEDURAL STATES (5) Status post femoral-popliteal bypass surgery Code(s): Z95.828 - PRESENCE OF OTHER VASCULAR IMPLANTS AND GRAFTS (6) Abdominal aortic aneurysm Code(s): I71.4 - ABDOMINAL AORTIC ANEURYSM, WITHOUT RUPTURE Qualifiers: Presence of rupture: without rupture Qualified Code(s): I71.4 - Abdominal aortic aneurysm, without rupture (7) CAD (coronary artery disease) Code(s): I25.10 - ATHSCL HEART DISEASE OF [place] CORONARY ARTERY W/O ANG PCTRS Qualifiers: Coronary Disease-Associated Artery/Lesion type: [place] artery [place] vs. transplanted heart: [place] heart Associated angina: without angina Qualified Code(s): I25.10 - Atherosclerotic heart disease of [place] coronary artery without angina pectoris (8) Chronic kidney disease Code(s): N18.9 - CHRONIC KIDNEY DISEASE, UNSPECIFIED Qualifiers: Chronic kidney disease stage: unspecified stage Qualified Code(s): N18.9 - Chronic kidney disease, unspecified (9) Cough Code(s): R05 - COUGH (10) Diastolic dysfunction without heart failure Code(s): I51.9 - HEART DISEASE, UNSPECIFIED (11) Enlarged prostate with lower urinary tract symptoms (LUTS) Code(s): N40.1 - BENIGN PROSTATIC HYPERPLASIA WITH LOWER URINARY TRACT SYMP (12) Hyperlipidemia Assessment/Plan: total cholesterol 137 Continue lipitor. Code(s): E78.5 - HYPERLIPIDEMIA, UNSPECIFIED Qualifiers: Hyperlipidemia type: Pure hypercholesterolemia (13) Hypertension Assessment/Plan: Continue present medications (on losartan and amlodiine). Pain management (pain on coughing). Code(s): I10 - ESSENTIAL (PRIMARY) HYPERTENSION (14) Peripheral artery disease Assessment/Plan: On Pletal. COntinue aggressive Rx of cholesterol with statin, diet modification, and exercise. Code(s): I73.9 - PERIPHERAL VASCULAR DISEASE, UNSPECIFIED (15) Pneumonia Assessment/Plan: Continue antibiotics; f/u cultures. Code(s): J18.9 - PNEUMONIA, UNSPECIFIED ORGANISM Qualifiers: Pneumonia type: due to unspecified organism Laterality: left Lung location: lower lobe of lung Qualified Code(s): J18.1 - Lobar pneumonia, unspecified organism (16) Status post coronary artery stent placement Code(s): Z95.5 - PRESENCE OF CORONARY ANGIOPLASTY IMPLANT AND GRAFT (17) Renal dysfunction Assessment/Plan: avoid excessive dehydration; f/u with wharf hand. Code(s): N28.9 - DISORDER OF KIDNEY AND URETER, UNSPECIFIED (18) Acute constipation Assessment/Plan: no bowel movement for ? 7 days. On medications; Hydration. Encourage high-fiber diet. Code(s): K59.00 - CONSTIPATION, UNSPECIFIED
[2016-08-31] MEDS ORDERED: SODIUM PHOSPHATE/NA BIPHOS 133 ML ENEMA RC ONE (11:30)
--- NOTE | 2016-08-31 12:42 | PN ---
Progress Note (short form) - Note Progress Note: PULMONARY LESS CONFUSION FAMILY PRESENT VSS/AFEBRILE ANICTERIC SCATTERED RHONCHI S1S2 BS+ OBESE LESS EDEMA LABS/MEDS/NOTES/IMAGING REVIEWED (1) COPD (chronic obstructive pulmonary disease) Code(s): J44.9 - CHRONIC OBSTRUCTIVE PULMONARY DISEASE, UNSPECIFIED (2) Abdominal aortic aneurysm Code(s): I71.4 - ABDOMINAL AORTIC ANEURYSM, WITHOUT RUPTURE Qualifiers: Presence of rupture: without rupture Qualified Code(s): I71.4 - Abdominal aortic aneurysm, without rupture (3) CAD (coronary artery disease) Code(s): I25.10 - ATHSCL HEART DISEASE OF [place] CORONARY ARTERY W/O ANG PCTRS Qualifiers: Coronary Disease-Associated Artery/Lesion type: [place] artery [place] vs. transplanted heart: [place] heart Associated angina: without angina Qualified Code(s): I25.10 - Atherosclerotic heart disease of [place] coronary artery without angina pectoris (4) COPD exacerbation Code(s): J44.1 - CHRONIC OBSTRUCTIVE PULMONARY DISEASE W (ACUTE) EXACERBATION (5) Chronic kidney disease Code(s): N18.9 - CHRONIC KIDNEY DISEASE, UNSPECIFIED Qualifiers: Chronic kidney disease stage: unspecified stage Qualified Code(s): N18.9 - Chronic kidney disease, unspecified (6) Cough Code(s): R05 - COUGH (7) Enlarged prostate with lower urinary tract symptoms (LUTS) Code(s): N40.1 - BENIGN PROSTATIC HYPERPLASIA WITH LOWER URINARY TRACT SYMP (8) Hyperlipidemia Code(s): E78.5 - HYPERLIPIDEMIA, UNSPECIFIED Qualifiers: Hyperlipidemia type: Pure hypercholesterolemia (9) Hypertension Code(s): I10 - ESSENTIAL (PRIMARY) HYPERTENSION (10) Left lumbar pain Code(s): M54.5 - LOW BACK PAIN (11) Peripheral artery disease Code(s): I73.9 - PERIPHERAL VASCULAR DISEASE, UNSPECIFIED (12) Status post coronary artery stent placement Code(s): Z95.5 - PRESENCE OF CORONARY ANGIOPLASTY IMPLANT AND GRAFT Tudorza BID Taper IV Medrol ABX O2 as needed BD TX VTE prophylaxis No smoking [place] MD
[2016-08-31] MEDS: cefTRIAXone 1 GM/50 ML BAG (PRE-DOCKED) IVPB SCH (12:57)
--- NOTE | 2016-08-31 13:06 | PN ---
Progress Note, Physician History of Present Illness: Pt still coughing, better, associated with right side pain and green sputum Pt w/o CP, palp, SOB, abd pain. + constipation - Current Medication List Current Medications: Active Medications Acetaminophen (Tylenol -) 650 mg PO Q6H PRN PRN Reason: FEVER OR PAIN Last Admin: 08/30/16 21:50 Dose: 650 mg Aclidinium [place] (Tudorza -) 1 puff IH BID [facility] Last Admin: 08/31/16 10:58 Dose: 1 puff Albuterol Sulfate (Ventolin 0.083% Nebulizer Soln -) 1 amp NEB QIDR [facility] Last Admin: 08/31/16 11:32 Dose: 1 amp Amlodipine Besylate (Norvasc -) 10 mg PO DAILY [facility] Last Admin: 08/31/16 10:58 Dose: 10 mg Atorvastatin Calcium (Lipitor -) 40 mg PO HS [facility] Last Admin: 08/30/16 21:48 Dose: 40 mg Azithromycin (Zithromax 500mg Ivpb (Pre-Docked)) 500 mg IVPB DAILY [facility] Last Admin: 08/31/16 10:55 Dose: 500 mg Ceftriaxone Sodium (Rocephin 1gm Ivpb (Pre-Docked)) 1 gm IVPB DAILY [facility] Last Admin: 08/31/16 12:57 Dose: 1 gm Cilostazol (Pletal -) 100 mg PO BID [facility] Last Admin: 08/31/16 10:57 Dose: 100 mg Codeine Sulfate (Codeine Sulfate -) 30 mg PO Q8H PRN PRN Reason: COUGH Last Admin: 08/31/16 06:49 Dose: 30 mg Docusate Sodium (Colace -) 100 mg PO BID [facility] Last Admin: 08/31/16 10:57 Dose: 100 mg Fluticasone Propionate (Flonase -) 1 spray NS BID [facility] Last Admin: 08/31/16 10:56 Dose: 1 spray Guaifenesin/Codeine Phosphate (Robitussin Ac -) 10 ml PO Q8H PRN PRN Reason: COUGH Last Admin: 08/31/16 06:49 Dose: 10 ml Heparin Sodium (Porcine) (Heparin -) 5,000 unit SQ BID [facility] Last Admin: 08/31/16 10:57 Dose: 5,000 unit Insulin Aspart (Novolog Vial Sliding Scale -) 1 vial SQ ACHS [facility] PRN Reason: Protocol Last Admin: 08/31/16 12:10 Dose: Not Given Losartan Potassium (Cozaar -) 25 mg PO DAILY [facility] Last Admin: 08/31/16 10:58 Dose: 25 mg Methylprednisolone Sodium Succinate (Solu-Medrol -) 40 mg IVPB BID [facility] Last Admin: 08/31/16 10:55 Dose: 40 mg Metoprolol Succinate (Toprol Xl -) 25 mg PO DAILY [facility] Last Admin: 08/31/16 10:57 Dose: 25 mg Polyethylene Glycol (Miralax (For Daily Use) -) 17 gm PO BID [facility] Last Admin: 08/31/16 10:57 Dose: 17 gm Ranitidine HCl (Zantac -) 150 mg PO BID [facility] Last Admin: 08/31/16 10:57 Dose: 150 mg Senna (Senna -) 1 tab PO BID [facility] Last Admin: 08/31/16 10:57 Dose: 1 tab Tamsulosin HCl (Flomax -) 0.4 mg PO DAILY@0830 [facility] Last Admin: 08/31/16 08:48 Dose: 0.4 mg - Objective Vital Signs: Vital Signs Temperature 98.3 F 08/31/16 05:58 Pulse Rate 83 08/31/16 11:32 Respiratory Rate 20 08/31/16 05:58 Blood Pressure 106/59 08/31/16 05:58 O2 Sat by Pulse Oximetry (%) 93 L 08/31/16 11:32 Constitutional: Yes: No Distress, Calm Cardiovascular: Yes: Regular Rate and Rhythm, S1, S2 Respiratory: Yes: Regular, Rhonchi Gastrointestinal: Yes: Normal Bowel Sounds, Soft. No: Palpable Mass, Tenderness Edema: No Neurological: Yes: Alert, Oriented, Other (symmetric mototr and sensory) Labs: CBC, BMP 08/30/16 07:20 08/31/16 07:35 INR, PTT INR 1.07 (0.82-1.09) 08/26/16 03:38 Problem List - Problems (1) Acute exacerbation of chronic obstructive pulmonary disease (COPD) Code(s): J44.1 - CHRONIC OBSTRUCTIVE PULMONARY DISEASE W (ACUTE) EXACERBATION (2) CAD (coronary artery disease) Code(s): I25.10 - ATHSCL HEART DISEASE OF [place] CORONARY ARTERY W/O ANG PCTRS Qualifiers: Coronary Disease-Associated Artery/Lesion type: [place] artery [place] vs. transplanted heart: [place] heart Associated angina: without angina Qualified Code(s): I25.10 - Atherosclerotic heart disease of [place] coronary artery without angina pectoris (3) Chronic kidney disease Code(s): N18.9 - CHRONIC KIDNEY DISEASE, UNSPECIFIED Qualifiers: Chronic kidney disease stage: unspecified stage Qualified Code(s): N18.9 - Chronic kidney disease, unspecified (4) History of abdominal aortic aneurysm (AAA) repair Code(s): Z98.890 - OTHER SPECIFIED POSTPROCEDURAL STATES (5) Hypertension Code(s): I10 - ESSENTIAL (PRIMARY) HYPERTENSION (6) Status post femoral-popliteal bypass surgery Code(s): Z95.828 - PRESENCE OF OTHER VASCULAR IMPLANTS AND GRAFTS (7) BPH (benign prostatic hyperplasia) Code(s): N40.0 - BENIGN PROSTATIC HYPERPLASIA WITHOUT LOWER URINRY TRACT SYMP (8) Elevated fasting blood sugar Code(s): R73.01 - IMPAIRED FASTING GLUCOSE (9) Hypernatremia Code(s): E87.0 - HYPEROSMOLALITY AND HYPERNATREMIA (10) Constipation Code(s): K59.00 - CONSTIPATION, UNSPECIFIED Assessment/Plan Pt on IV abtx, steroids- now BID; to taper per Pulm. Pulmonary consult appreciated. Cardio consult appreciated DVT prophylaxis- I encouraged OOBTC.
[2016-08-31] MEDS: ACETAMINOPHEN 325 MG TABLET (FP) PO SCH ×2 (13:59→22:13)
[2016-08-31] MEDS ORDERED: BISACODYL 10 MG SUPP.RECT RC ONE (16:45)
[2016-08-31] MEDS ORDERED: INSULIN (NOVOLOG) ASPART 100 UNITS/ML 10ML VIAL ONE (17:18)
[2016-08-31] MEDS: ATORVASTATIN CA 40 MG TABLET (FP) PO SCH (22:13)
[2016-09-01] MEDS: ALBUTEROL SO4 0.083% IH SOL 2.5 MG/3 ML VIAL.NEB. NEB SCH ×5 (06:05→23:19)
[2016-09-01] MEDS: ACETAMINOPHEN 325 MG TABLET (FP) PO SCH ×3 (06:12→21:37)
[2016-09-01] MEDS: INSULIN SLIDING SCALE (NOVOLOG) 1 VIAL SQ SCH ×4 (06:12→21:38)
[2016-09-01 07:38] LABS: ANION GAP 7 (8-16); CALCIUM 8.4 mg/dL (8.5-10.1); CO2 28 mmol/L (21-32); CREATININE 1.8 mg/dL (0.7-1.3); GLUCOSE,RANDOM 159 mg/dL (74-106)
[2016-09-01 07:55] LABS: MCH 33.3 pg (25.7-33.7); MEAN CELL VOLUME 98.1 fl (80-96); MEAN PLT VOLUME 8.8 fl (7.5-11.1); PLATELET COUNT 112 K/MM3 (134-434); RDW 13.8 % (11.9-15.9); WHITE BLOOD COUNT 9.4 K/mm3 (4.0-10.0)
[2016-09-01] MEDS: TAMSULOSIN HCL 0.4 MG CAP.ER.24H (FP) PO SCH (08:47)
[2016-09-01] MEDS: AZITHROMYCIN IVPB 500 MG/250 ML D5W PRE-DOCKED IVPB SCH (09:36)
[2016-09-01] MEDS: methylPREDNISolone NA SUCC 125 MG/2 ML VIAL IVPB SCH ×2 (09:36→21:37)
[2016-09-01] MEDS: DOCUSATE SODIUM 100 MG CAPSULE (FP) PO SCH ×2 (09:37→21:38)
[2016-09-01] MEDS: SENNOSIDES 8.6MG TABLET (FP) PO SCH ×2 (09:37→21:37)
[2016-09-01] MEDS: METOPROLOL SUCCINATE 25 MG TAB.SR.24H (FP) PO SCH (09:37)
[2016-09-01] MEDS: LOSARTAN POTASSIUM 25 MG TABLET PO SCH (09:37)
[2016-09-01] MEDS: amLODIPine BESYLATE 10 MG TABLET (FP) PO SCH (09:37)
[2016-09-01] MEDS: RANITIDINE HCL 150 MG TABLET (FP) PO SCH ×2 (09:37→21:37)
[2016-09-01] MEDS: HEPARIN NA (PORCINE) 5,000 UNITS/ML 1ML VIAL SQ SCH ×2 (09:38→21:37)
[2016-09-01] MEDS: CILOSTAZOL 100 MG TABLET PO SCH ×2 (09:39→21:38)
[2016-09-01] MEDS: POLYETHYLENE GLYCOL 3350 119 GM BTL PO SCH ×3 (09:42→21:39)
[2016-09-01] MEDS: cefTRIAXone 1 GM/50 ML BAG (PRE-DOCKED) IVPB SCH (09:44)
[2016-09-01] MEDS: ACLIDINIUM BROMIDE 400 MCG/INH AERO.POWD IH SCH ×2 (09:46→21:41)
[2016-09-01] MEDS: FLUTICASONE PROP 0.05% 16 GM NASAL SPRAY NS SCH ×2 (09:46→21:40)
--- NOTE | 2016-09-01 10:25 | PN ---
Progress Note (short form) - Note Progress Note: Breathing feels overall better. Cough is finally starting to improve, but not completely resolved. Right rib cage pain with cough. Reports symptoms of mild intermittent GERD and mild post nasal drip. No acute events overnight. Intake & Output 08/29/16 08/30/16 08/31/16 09/01/16 23:59 23:59 23:59 23:59 Intake Total 560 1250 900 Output Total 500 500 Balance 60 750 900 Weight 181 lb 2 oz 181 lb 3 oz 182 lb 4 oz 186 lb 1 oz Last Vital Signs Temp Pulse Resp BP Pulse Ox 98.7 F 77 20 102/69 96 09/01/16 06:00 09/01/16 06:00 09/01/16 06:00 09/01/16 06:00 08/31/16 21:00 Active Medications Acetaminophen (Tylenol -) 650 mg PO Q8H [facility] Stop: 09/02/16 13:14 Last Admin: 09/01/16 06:12 Dose: 650 mg Aclidinium [place] (Tudorza -) 1 puff IH BID [facility] Last Admin: 09/01/16 09:46 Dose: 1 puff Albuterol Sulfate (Ventolin 0.083% Nebulizer Soln -) 1 amp NEB QIDR [facility] Last Admin: 09/01/16 06:05 Dose: 1 amp Amlodipine Besylate (Norvasc -) 10 mg PO DAILY [facility] Last Admin: 09/01/16 09:37 Dose: 10 mg Atorvastatin Calcium (Lipitor -) 40 mg PO HS [facility] Last Admin: 08/31/16 22:13 Dose: 40 mg Azithromycin (Zithromax 500mg Ivpb (Pre-Docked)) 500 mg IVPB DAILY [facility] Last Admin: 09/01/16 09:36 Dose: 500 mg Ceftriaxone Sodium (Rocephin 1gm Ivpb (Pre-Docked)) 1 gm IVPB DAILY [facility] Last Admin: 09/01/16 09:44 Dose: 1 gm Cilostazol (Pletal -) 100 mg PO BID [facility] Last Admin: 09/01/16 09:39 Dose: 100 mg Docusate Sodium (Colace -) 100 mg PO BID [facility] Last Admin: 09/01/16 09:37 Dose: 100 mg Fluticasone Propionate (Flonase -) 1 spray NS BID [facility] Last Admin: 09/01/16 09:46 Dose: 1 spray Guaifenesin/Codeine Phosphate (Robitussin Ac -) 10 ml PO Q8H PRN PRN Reason: COUGH Last Admin: 08/31/16 06:49 Dose: 10 ml Heparin Sodium (Porcine) (Heparin -) 5,000 unit SQ BID [facility] Last Admin: 09/01/16 09:38 Dose: 5,000 unit Insulin Aspart (Novolog Vial Sliding Scale -) 1 vial SQ ACHS [facility] PRN Reason: Protocol Last Admin: 09/01/16 06:12 Dose: Not Given Losartan Potassium (Cozaar -) 25 mg PO DAILY [facility] Last Admin: 09/01/16 09:37 Dose: 25 mg Methylprednisolone Sodium Succinate (Solu-Medrol -) 40 mg IVPB BID [facility] Last Admin: 09/01/16 09:36 Dose: 40 mg Metoprolol Succinate (Toprol Xl -) 25 mg PO DAILY [facility] Last Admin: 09/01/16 09:37 Dose: 25 mg Polyethylene Glycol (Miralax (For Daily Use) -) 17 gm PO BID [facility] Last Admin: 09/01/16 09:42 Dose: 17 gm Ranitidine HCl (Zantac -) 150 mg PO BID [facility] Last Admin: 09/01/16 09:37 Dose: 150 mg Senna (Senna -) 1 tab PO BID [facility] Last Admin: 09/01/16 09:37 Dose: 1 tab Sodium Polystyrene Sulfonate (Kayexalate -) 15 gm PO ONCE ONE Stop: 09/01/16 10:31 Tamsulosin HCl (Flomax -) 0.4 mg PO DAILY@0830 [facility] Last Admin: 09/01/16 08:47 Dose: 0.4 mg Constitutional: Yes: No Distress Eyes: Yes: Conjunctiva Clear, EOM Intact HENT: Yes: Atraumatic, Normocephalic Neck: Yes: Supple, Trachea Midline Cardiovascular: Yes: Regular Rate and Rhythm Respiratory: Yes: Cough, Diminished, On Nasal O2, Rhonchi. No: Accessory Muscle Use, Rales, Stridor, Tachypnea, Wheezes ...Inspection: Yes: WNL ...Clubbing: No Gastrointestinal: Yes: Normal Bowel Sounds, Soft Renal/: Yes: WNL Musculoskeletal: Yes: WNL Extremities: Yes: WNL Edema: No Peripheral Pulses WNL: Yes Integumentary: Yes: WNL Neurological: Yes: WNL, Alert, Oriented ...Motor Strength: WNL Psychiatric: Yes: WNL, Alert, Oriented Labs: Laboratory Results - last 24 hr 08/31/16 08/31/16 08/31/16 11:42 17:07 22:25 WBC RBC Hgb Hct MCV MCHC RDW Plt Count MPV Sodium Potassium Chloride Carbon Dioxide Anion Gap BUN Creatinine POC Glucometer 196 235 181 Random Glucose Calcium 09/01/16 09/01/16 09/01/16 05:41 06:20 06:20 WBC 9.4 RBC 3.59 L Hgb 12.0 Hct 35.2 L MCV 98.1 H MCHC 34.0 RDW 13.8 Plt Count 112 L MPV 8.8 Sodium 140 Potassium 5.3 H Chloride 105 Carbon Dioxide 28 Anion Gap 7 L BUN 54 H Creatinine 1.8 H POC Glucometer 149 Random Glucose 159 H Calcium 8.4 L Problem List - Problems (1) COPD (chronic obstructive pulmonary disease) Code(s): J44.9 - CHRONIC OBSTRUCTIVE PULMONARY DISEASE, UNSPECIFIED (2) Abdominal aortic aneurysm Code(s): I71.4 - ABDOMINAL AORTIC ANEURYSM, WITHOUT RUPTURE Qualifiers: Presence of rupture: without rupture Qualified Code(s): I71.4 - Abdominal aortic aneurysm, without rupture (3) CAD (coronary artery disease) Code(s): I25.10 - ATHSCL HEART DISEASE OF [place] CORONARY ARTERY W/O ANG PCTRS Qualifiers: Coronary Disease-Associated Artery/Lesion type: [place] artery [place] vs. transplanted heart: [place] heart Associated angina: without angina Qualified Code(s): I25.10 - Atherosclerotic heart disease of [place] coronary artery without angina pectoris (4) COPD exacerbation Code(s): J44.1 - CHRONIC OBSTRUCTIVE PULMONARY DISEASE W (ACUTE) EXACERBATION (5) Chronic kidney disease Code(s): N18.9 - CHRONIC KIDNEY DISEASE, UNSPECIFIED Qualifiers: Chronic kidney disease stage: unspecified stage Qualified Code(s): N18.9 - Chronic kidney disease, unspecified (6) Cough Code(s): R05 - COUGH (7) Enlarged prostate with lower urinary tract symptoms (LUTS) Code(s): N40.1 - BENIGN PROSTATIC HYPERPLASIA WITH LOWER URINARY TRACT SYMP (8) Hyperlipidemia Code(s): E78.5 - HYPERLIPIDEMIA, UNSPECIFIED Qualifiers: Hyperlipidemia type: Pure hypercholesterolemia (9) Hypertension Code(s): I10 - ESSENTIAL (PRIMARY) HYPERTENSION (10) Left lumbar pain Code(s): M54.5 - LOW BACK PAIN (11) Peripheral artery disease Code(s): I73.9 - PERIPHERAL VASCULAR DISEASE, UNSPECIFIED (12) Status post coronary artery stent placement Code(s): Z95.5 - PRESENCE OF CORONARY ANGIOPLASTY IMPLANT AND GRAFT Assessment/Plan Tudorza BID Will change to Prednisone tomorrow ABX O2 as needed BD TX VTE prophylaxis No smoking Check O2 saturation Pre/Post ambulation Dr Reynoso. Problem List - Problems (1) COPD (chronic obstructive pulmonary disease) Code(s): J44.9 - CHRONIC OBSTRUCTIVE PULMONARY DISEASE, UNSPECIFIED (2) Abdominal aortic aneurysm Code(s): I71.4 - ABDOMINAL AORTIC ANEURYSM, WITHOUT RUPTURE Qualifiers: Presence of rupture: without rupture Qualified Code(s): I71.4 - Abdominal aortic aneurysm, without rupture (3) CAD (coronary artery disease) Code(s): I25.10 - ATHSCL HEART DISEASE OF [place] CORONARY ARTERY W/O ANG PCTRS Qualifiers: Coronary Disease-Associated Artery/Lesion type: [place] artery [place] vs. transplanted heart: [place] heart Associated angina: without angina Qualified Code(s): I25.10 - Atherosclerotic heart disease of [place] coronary artery without angina pectoris (4) COPD exacerbation Code(s): J44.1 - CHRONIC OBSTRUCTIVE PULMONARY DISEASE W (ACUTE) EXACERBATION (5) Chronic kidney disease Code(s): N18.9 - CHRONIC KIDNEY DISEASE, UNSPECIFIED Qualifiers: Chronic kidney disease stage: unspecified stage Qualified Code(s): N18.9 - Chronic kidney disease, unspecified (6) Cough Code(s): R05 - COUGH (7) Enlarged prostate with lower urinary tract symptoms (LUTS) Code(s): N40.1 - BENIGN PROSTATIC HYPERPLASIA WITH LOWER URINARY TRACT SYMP (8) Hyperlipidemia Code(s): E78.5 - HYPERLIPIDEMIA, UNSPECIFIED Qualifiers: Hyperlipidemia type: Pure hypercholesterolemia (9) Hypertension Code(s): I10 - ESSENTIAL (PRIMARY) HYPERTENSION (10) Left lumbar pain Code(s): M54.5 - LOW BACK PAIN (11) Peripheral artery disease Code(s): I73.9 - PERIPHERAL VASCULAR DISEASE, UNSPECIFIED (12) Status post coronary artery stent placement Code(s): Z95.5 - PRESENCE OF CORONARY ANGIOPLASTY IMPLANT AND GRAFT
[2016-09-01] MEDS ORDERED: SODIUM POLYSTYRENE SULFONATE 15 GM/60 ML BOTTLE PO ONE (10:30)
--- NOTE | 2016-09-01 10:37 | PN ---
Progress Note, Physician History of Present Illness: Pt still coughing, better, associated with right side pain. Pt w/o CP, palp, SOB, abd pain. + constipation - Current Medication List Current Medications: Active Medications Acetaminophen (Tylenol -) 650 mg PO Q8H [facility] Stop: 09/02/16 13:14 Last Admin: 09/01/16 06:12 Dose: 650 mg Aclidinium [place] (Tudorza -) 1 puff IH BID [facility] Last Admin: 09/01/16 09:46 Dose: 1 puff Albuterol Sulfate (Ventolin 0.083% Nebulizer Soln -) 1 amp NEB QIDR [facility] Last Admin: 09/01/16 06:05 Dose: 1 amp Amlodipine Besylate (Norvasc -) 10 mg PO DAILY [facility] Last Admin: 09/01/16 09:37 Dose: 10 mg Atorvastatin Calcium (Lipitor -) 40 mg PO HS [facility] Last Admin: 08/31/16 22:13 Dose: 40 mg Azithromycin (Zithromax 500mg Ivpb (Pre-Docked)) 500 mg IVPB DAILY [facility] Last Admin: 09/01/16 09:36 Dose: 500 mg Ceftriaxone Sodium (Rocephin 1gm Ivpb (Pre-Docked)) 1 gm IVPB DAILY [facility] Last Admin: 09/01/16 09:44 Dose: 1 gm Cilostazol (Pletal -) 100 mg PO BID [facility] Last Admin: 09/01/16 09:39 Dose: 100 mg Docusate Sodium (Colace -) 100 mg PO BID [facility] Last Admin: 09/01/16 09:37 Dose: 100 mg Fluticasone Propionate (Flonase -) 1 spray NS BID [facility] Last Admin: 09/01/16 09:46 Dose: 1 spray Guaifenesin/Codeine Phosphate (Robitussin Ac -) 10 ml PO Q8H PRN PRN Reason: COUGH Last Admin: 08/31/16 06:49 Dose: 10 ml Heparin Sodium (Porcine) (Heparin -) 5,000 unit SQ BID [facility] Last Admin: 09/01/16 09:38 Dose: 5,000 unit Insulin Aspart (Novolog Vial Sliding Scale -) 1 vial SQ ACHS [facility] PRN Reason: Protocol Last Admin: 09/01/16 06:12 Dose: Not Given Losartan Potassium (Cozaar -) 25 mg PO DAILY [facility] Last Admin: 09/01/16 09:37 Dose: 25 mg Methylprednisolone Sodium Succinate (Solu-Medrol -) 40 mg IVPB BID [facility] Stop: 09/01/16 23:59 Last Admin: 09/01/16 09:36 Dose: 40 mg Metoprolol Succinate (Toprol Xl -) 25 mg PO DAILY [facility] Last Admin: 09/01/16 09:37 Dose: 25 mg Polyethylene Glycol (Miralax (For Daily Use) -) 17 gm PO BID [facility] Last Admin: 09/01/16 09:42 Dose: 17 gm Prednisone (Deltasone -) 40 mg PO DAILY [facility] Ranitidine HCl (Zantac -) 150 mg PO BID [facility] Last Admin: 09/01/16 09:37 Dose: 150 mg Senna (Senna -) 1 tab PO BID [facility] Last Admin: 09/01/16 09:37 Dose: 1 tab Tamsulosin HCl (Flomax -) 0.4 mg PO DAILY@0830 [facility] Last Admin: 09/01/16 08:47 Dose: 0.4 mg - Objective Vital Signs: Vital Signs Temperature 98.7 F 09/01/16 06:00 Pulse Rate 77 09/01/16 06:00 Respiratory Rate 20 09/01/16 06:00 Blood Pressure 102/69 09/01/16 06:00 O2 Sat by Pulse Oximetry (%) 96 08/31/16 21:00 Constitutional: Yes: No Distress, Calm Cardiovascular: Yes: Regular Rate and Rhythm, S1, S2 Respiratory: Yes: Regular, Rhonchi (at right bases), Other (coarse BS) Gastrointestinal: Yes: Normal Bowel Sounds, Soft Edema: No Neurological: Yes: Alert, Oriented Labs: CBC, BMP 09/01/16 06:20 09/01/16 06:20 INR, PTT INR 1.07 (0.82-1.09) 08/26/16 03:38 Problem List - Problems (1) Acute exacerbation of chronic obstructive pulmonary disease (COPD) Code(s): J44.1 - CHRONIC OBSTRUCTIVE PULMONARY DISEASE W (ACUTE) EXACERBATION (2) CAD (coronary artery disease) Code(s): I25.10 - ATHSCL HEART DISEASE OF [place] CORONARY ARTERY W/O ANG PCTRS Qualifiers: Coronary Disease-Associated Artery/Lesion type: [place] artery [place] vs. transplanted heart: [place] heart Associated angina: without angina Qualified Code(s): I25.10 - Atherosclerotic heart disease of [place] coronary artery without angina pectoris (3) Chronic kidney disease Code(s): N18.9 - CHRONIC KIDNEY DISEASE, UNSPECIFIED Qualifiers: Chronic kidney disease stage: unspecified stage Qualified Code(s): N18.9 - Chronic kidney disease, unspecified (4) History of abdominal aortic aneurysm (AAA) repair Code(s): Z98.890 - OTHER SPECIFIED POSTPROCEDURAL STATES (5) Hypertension Code(s): I10 - ESSENTIAL (PRIMARY) HYPERTENSION (6) Status post femoral-popliteal bypass surgery Code(s): Z95.828 - PRESENCE OF OTHER VASCULAR IMPLANTS AND GRAFTS (7) BPH (benign prostatic hyperplasia) Code(s): N40.0 - BENIGN PROSTATIC HYPERPLASIA WITHOUT LOWER URINRY TRACT SYMP (8) Elevated fasting blood sugar Code(s): R73.01 - IMPAIRED FASTING GLUCOSE (9) Hypernatremia Code(s): E87.0 - HYPEROSMOLALITY AND HYPERNATREMIA (10) Constipation Assessment/Plan: s/p Glycerin supp and enema, w/o BM increase MIralax I advice pt to increase PO fluid intake Code(s): K59.00 - CONSTIPATION, UNSPECIFIED Assessment/Plan Pt on IV abtx, steroids- now BID; to taper per Pulm. Pulmonary consult appreciated. Cardio consult appreciated DVT prophylaxis- I encouraged OOBTC. Miralax TID
[2016-09-01] MEDS ORDERED: PT OWN MED DRAWER 7, Y5N ONE (21:26)
[2016-09-01] MEDS: ATORVASTATIN CA 40 MG TABLET (FP) PO SCH (21:37)
--- NOTE | 2016-09-01 22:51 | PN ---
Progress Note, Physician - Current Medication List Current Medications: Active Medications Acetaminophen (Tylenol -) 650 mg PO Q8H [facility] Stop: 09/02/16 13:14 Last Admin: 09/01/16 21:37 Dose: 650 mg Aclidinium [place] (Tudorza -) 1 puff IH BID [facility] Last Admin: 09/01/16 21:41 Dose: 1 puff Albuterol Sulfate (Ventolin 0.083% Nebulizer Soln -) 1 amp NEB QIDR [facility] Last Admin: 09/01/16 18:32 Dose: 1 amp Amlodipine Besylate (Norvasc -) 10 mg PO DAILY [facility] Last Admin: 09/01/16 09:37 Dose: 10 mg Atorvastatin Calcium (Lipitor -) 40 mg PO HS [facility] Last Admin: 09/01/16 21:37 Dose: 40 mg Azithromycin (Zithromax 500mg Ivpb (Pre-Docked)) 500 mg IVPB DAILY [facility] Last Admin: 09/01/16 09:36 Dose: 500 mg Ceftriaxone Sodium (Rocephin 1gm Ivpb (Pre-Docked)) 1 gm IVPB DAILY [facility] Last Admin: 09/01/16 09:44 Dose: 1 gm Cilostazol (Pletal -) 100 mg PO BID [facility] Last Admin: 09/01/16 21:38 Dose: 100 mg Docusate Sodium (Colace -) 100 mg PO BID [facility] Last Admin: 09/01/16 21:38 Dose: 100 mg Fluticasone Propionate (Flonase -) 1 spray NS BID [facility] Last Admin: 09/01/16 21:40 Dose: 1 spray Guaifenesin/Codeine Phosphate (Robitussin Ac -) 10 ml PO Q8H PRN PRN Reason: COUGH Last Admin: 08/31/16 06:49 Dose: 10 ml Heparin Sodium (Porcine) (Heparin -) 5,000 unit SQ BID [facility] Last Admin: 09/01/16 21:37 Dose: 5,000 unit Insulin Aspart (Novolog Vial Sliding Scale -) 1 vial SQ ACHS [facility] PRN Reason: Protocol Last Admin: 09/01/16 21:38 Dose: Not Given Losartan Potassium (Cozaar -) 25 mg PO DAILY [facility] Last Admin: 09/01/16 09:37 Dose: 25 mg Methylprednisolone Sodium Succinate (Solu-Medrol -) 40 mg IVPB BID [facility] Stop: 09/01/16 23:59 Last Admin: 09/01/16 21:37 Dose: 40 mg Metoprolol Succinate (Toprol Xl -) 25 mg PO DAILY [facility] Last Admin: 09/01/16 09:37 Dose: 25 mg Polyethylene Glycol (Miralax (For Daily Use) -) 17 gm PO TID [facility] Last Admin: 09/01/16 21:39 Dose: 17 gm Prednisone (Deltasone -) 40 mg PO DAILY [facility] Ranitidine HCl (Zantac -) 150 mg PO BID [facility] Last Admin: 09/01/16 21:37 Dose: 150 mg Senna (Senna -) 1 tab PO BID [facility] Last Admin: 09/01/16 21:37 Dose: 1 tab Tamsulosin HCl (Flomax -) 0.4 mg PO DAILY@0830 [facility] Last Admin: 09/01/16 08:47 Dose: 0.4 mg - Objective Vital Signs: Vital Signs Temperature 98.6 F 09/01/16 14:22 Pulse Rate 81 09/01/16 14:22 Respiratory Rate 20 09/01/16 14:22 Blood Pressure 115/61 09/01/16 14:22 O2 Sat by Pulse Oximetry (%) 96 09/01/16 11:00 Labs: CBC, BMP 09/01/16 06:20 09/01/16 06:20 INR, PTT INR 1.07 (0.82-1.09) 08/26/16 03:38 Problem List - Problems (1) Acute exacerbation of chronic obstructive pulmonary disease (COPD) Code(s): J44.1 - CHRONIC OBSTRUCTIVE PULMONARY DISEASE W (ACUTE) EXACERBATION (2) BPH (benign prostatic hyperplasia) Code(s): N40.0 - BENIGN PROSTATIC HYPERPLASIA WITHOUT LOWER URINRY TRACT SYMP (3) Elevated fasting blood sugar Code(s): R73.01 - IMPAIRED FASTING GLUCOSE (4) History of abdominal aortic aneurysm (AAA) repair Code(s): Z98.890 - OTHER SPECIFIED POSTPROCEDURAL STATES (5) Status post femoral-popliteal bypass surgery Code(s): Z95.828 - PRESENCE OF OTHER VASCULAR IMPLANTS AND GRAFTS (6) Abdominal aortic aneurysm Code(s): I71.4 - ABDOMINAL AORTIC ANEURYSM, WITHOUT RUPTURE Qualifiers: Presence of rupture: without rupture Qualified Code(s): I71.4 - Abdominal aortic aneurysm, without rupture (7) CAD (coronary artery disease) Code(s): I25.10 - ATHSCL HEART DISEASE OF [place] CORONARY ARTERY W/O ANG PCTRS Qualifiers: Coronary Disease-Associated Artery/Lesion type: [place] artery [place] vs. transplanted heart: [place] heart Associated angina: without angina Qualified Code(s): I25.10 - Atherosclerotic heart disease of [place] coronary artery without angina pectoris (8) Chronic kidney disease Code(s): N18.9 - CHRONIC KIDNEY DISEASE, UNSPECIFIED Qualifiers: Chronic kidney disease stage: unspecified stage Qualified Code(s): N18.9 - Chronic kidney disease, unspecified (9) Cough Code(s): R05 - COUGH (10) Diastolic dysfunction without heart failure Code(s): I51.9 - HEART DISEASE, UNSPECIFIED (11) Enlarged prostate with lower urinary tract symptoms (LUTS) Code(s): N40.1 - BENIGN PROSTATIC HYPERPLASIA WITH LOWER URINARY TRACT SYMP (12) Hyperlipidemia Code(s): E78.5 - HYPERLIPIDEMIA, UNSPECIFIED Qualifiers: Hyperlipidemia type: Pure hypercholesterolemia (13) Hypertension Code(s): I10 - ESSENTIAL (PRIMARY) HYPERTENSION (14) Peripheral artery disease Code(s): I73.9 - PERIPHERAL VASCULAR DISEASE, UNSPECIFIED (15) Pneumonia Code(s): J18.9 - PNEUMONIA, UNSPECIFIED ORGANISM Qualifiers: Pneumonia type: due to unspecified organism Laterality: left Lung location: lower lobe of lung Qualified Code(s): J18.1 - Lobar pneumonia, unspecified organism (16) Status post coronary artery stent placement Code(s): Z95.5 - PRESENCE OF CORONARY ANGIOPLASTY IMPLANT AND GRAFT (17) Renal dysfunction Code(s): N28.9 - DISORDER OF KIDNEY AND URETER, UNSPECIFIED (18) Acute constipation Code(s): K59.00 - CONSTIPATION, UNSPECIFIED
[2016-09-02] MEDS: ALBUTEROL SO4 0.083% IH SOL 2.5 MG/3 ML VIAL.NEB. NEB SCH ×3 (06:01→17:22)
[2016-09-02] MEDS: ACETAMINOPHEN 325 MG TABLET (FP) PO SCH (06:01)
[2016-09-02] MEDS: POLYETHYLENE GLYCOL 3350 119 GM BTL PO SCH ×2 (06:02→13:19)
[2016-09-02] MEDS: INSULIN SLIDING SCALE (NOVOLOG) 1 VIAL SQ SCH ×3 (06:03→17:11)
[2016-09-02 08:45] LABS: ANION GAP 9 (8-16); CALCIUM 7.9 mg/dL (8.5-10.1); CO2 26 mmol/L (21-32); CREATININE 1.6 mg/dL (0.7-1.3); GLUCOSE,RANDOM 152 mg/dL (74-106)
[2016-09-02] MEDS: LOSARTAN POTASSIUM 25 MG TABLET PO SCH (09:20)
[2016-09-02] MEDS: FLUTICASONE PROP 0.05% 16 GM NASAL SPRAY NS SCH (09:20)
[2016-09-02] MEDS: RANITIDINE HCL 150 MG TABLET (FP) PO SCH (09:20)
[2016-09-02] MEDS: METOPROLOL SUCCINATE 25 MG TAB.SR.24H (FP) PO SCH (09:20)
[2016-09-02] MEDS: amLODIPine BESYLATE 10 MG TABLET (FP) PO SCH (09:20)
[2016-09-02] MEDS: DOCUSATE SODIUM 100 MG CAPSULE (FP) PO SCH (09:20)
[2016-09-02] MEDS: TAMSULOSIN HCL 0.4 MG CAP.ER.24H (FP) PO SCH (09:20)
[2016-09-02] MEDS: SENNOSIDES 8.6MG TABLET (FP) PO SCH (09:21)
[2016-09-02] MEDS: ACLIDINIUM BROMIDE 400 MCG/INH AERO.POWD IH SCH (09:21)
[2016-09-02] MEDS: HEPARIN NA (PORCINE) 5,000 UNITS/ML 1ML VIAL SQ SCH (09:23)
[2016-09-02] MEDS: CILOSTAZOL 100 MG TABLET PO SCH (09:23)
[2016-09-02] MEDS: cefTRIAXone 1 GM/50 ML BAG (PRE-DOCKED) IVPB SCH (09:26)
[2016-09-02] MEDS: AZITHROMYCIN IVPB 500 MG/250 ML D5W PRE-DOCKED IVPB SCH (09:26)
[2016-09-02] MEDS ORDERED: predniSONE 20 MG TABLET (UD) PO SCH (10:00)
--- NOTE | 2016-09-02 13:17 | PN ---
Progress Note (short form) - Note Progress Note: PULMONARY VSS/AFEBRILE ANICTERIC SCATTERED RHONCHI S1S2 BS+ OBESE LESS EDEMA LABS/MEDS/NOTES/IMAGING REVIEWED (1) COPD (chronic obstructive pulmonary disease) Code(s): J44.9 - CHRONIC OBSTRUCTIVE PULMONARY DISEASE, UNSPECIFIED (2) Abdominal aortic aneurysm Code(s): I71.4 - ABDOMINAL AORTIC ANEURYSM, WITHOUT RUPTURE Qualifiers: Presence of rupture: without rupture Qualified Code(s): I71.4 - Abdominal aortic aneurysm, without rupture (3) CAD (coronary artery disease) Code(s): I25.10 - ATHSCL HEART DISEASE OF [place] CORONARY ARTERY W/O ANG PCTRS Qualifiers: Coronary Disease-Associated Artery/Lesion type: [place] artery [place] vs. transplanted heart: [place] heart Associated angina: without angina Qualified Code(s): I25.10 - Atherosclerotic heart disease of [place] coronary artery without angina pectoris (4) COPD exacerbation Code(s): J44.1 - CHRONIC OBSTRUCTIVE PULMONARY DISEASE W (ACUTE) EXACERBATION (5) Chronic kidney disease Code(s): N18.9 - CHRONIC KIDNEY DISEASE, UNSPECIFIED Qualifiers: Chronic kidney disease stage: unspecified stage Qualified Code(s): N18.9 - Chronic kidney disease, unspecified (6) Cough Code(s): R05 - COUGH (7) Enlarged prostate with lower urinary tract symptoms (LUTS) Code(s): N40.1 - BENIGN PROSTATIC HYPERPLASIA WITH LOWER URINARY TRACT SYMP (8) Hyperlipidemia Code(s): E78.5 - HYPERLIPIDEMIA, UNSPECIFIED Qualifiers: Hyperlipidemia type: Pure hypercholesterolemia (9) Hypertension Code(s): I10 - ESSENTIAL (PRIMARY) HYPERTENSION (10) Left lumbar pain Code(s): M54.5 - LOW BACK PAIN (11) Peripheral artery disease Code(s): I73.9 - PERIPHERAL VASCULAR DISEASE, UNSPECIFIED (12) Status post coronary artery stent placement Code(s): Z95.5 - PRESENCE OF CORONARY ANGIOPLASTY IMPLANT AND GRAFT Tudorza BID Taper prednisone as outpatient O2 need to be determined via pre/post amb spo2 BD TX VTE prophylaxis smoking cessation discharge Y[place] MD
[2016-09-02 14:42] VITALS: PULSE 81
[2016-09-02 15:01] VITALS: BP 130/79; TEMP 98.3
--- NOTE | 2016-09-02 17:14 | DS ---
Physical Examination Vital Signs: Vital Signs Temperature 98.3 F 09/02/16 14:59 Pulse Rate 81 09/02/16 14:59 Respiratory Rate 20 09/02/16 09:00 Blood Pressure 130/79 09/02/16 14:59 O2 Sat by Pulse Oximetry (%) 95 09/02/16 14:37 Findings/Remarks: Pt's cough is better, no fever, no chiils, Constitutional: Yes: No Distress, Calm Cardiovascular: Yes: Regular Rate and Rhythm, S1, S2 Respiratory: Yes: Regular, Rhonchi Gastrointestinal: Yes: Normal Bowel Sounds, Soft Edema: No Neurological: Yes: Alert, Oriented Labs: CBC, BMP 09/01/16 06:20 09/02/16 06:40 Discharge Summary Reason For Visit: OBSTRUCTIVE CHRONIC BRONCHITIS W/EXACERBATION/COPD Current Active Problems Acute constipation (Acute) Acute exacerbation of chronic obstructive pulmonary disease (COPD) (Acute) BPH (benign prostatic hyperplasia) (Acute) COPD (chronic obstructive pulmonary disease) (Acute) Elevated fasting blood sugar (Acute) History of abdominal aortic aneurysm (AAA) repair (Acute) Hypernatremia (Acute) Renal dysfunction (Acute) Status post femoral-popliteal bypass surgery (Acute) Hospital Course: Pt with Hx/o CAD, cardiac stents, COPD, came to ER for SOB and cough for 3-4 days; he was admitted ( to Hospitalist service, transferred to service the second day). Pt was started on IV abtx, steroids. Pt was seen by Pulmonary ( Dr. Negrete/ [place]), Cardiology (Dr. Felix). Pt with significant constipation (chronic condition, got worse), treated medically. Pt improved slowly. Pt was DC'ed home on PO steroids, with PCP (own) and Pulmonary follow up. Condition: Unchanged/Unknown - Instructions Diet, Activity, Other Instructions: Diet: NCS, Low salt, Low cholesterol. See PCP next week Use oxygen all the time while walking and as needed during the day Referrals: Topher Pan MD [Staff Physician] - (next week) Santosh Felix MD [Staff Physician] - (as scheduled) Desmond Wu MD [Primary Care Provider] - (if not able to see own PCP, in 1 -2 weeks) Disposition: HOME - Home Medications Comprehensive Discharge Medication List: Ambulatory Orders Aspirin [ASA -] 81 mg PO DAILY 11/28/14 Atorvastatin Ca [Lipitor] 40 mg PO HS 11/28/14 Losartan Potassium 25 mg PO DAILY 11/28/14 Metoprolol Succinate [Toprol XL -] 25 mg PO DAILY 11/28/14 Omeprazole 20 mg PO DAILY 11/28/14 Tamsulosin HCl [Flomax -] 0.4 mg PO DAILY 11/28/14 Tiotropium [place] [Spiriva] 18 mcg IH DAILY 11/28/14 Albuterol Sulfate Inhaler - [Ventolin HFA Inhaler -] 2 inh PO Q4H PRN 01/05/15 Amlodipine Besylate [Norvasc -] 10 mg PO DAILY 01/05/15 Cilostazol [Pletal] 100 mg PO DAILY 01/05/15 Cyanocobalamin/Folic AC/Vit B6 [Foltabs 800 Tablet] 1 each PO DAILY 01/05/15 Polyethylene Glycol 3350 [Miralax 255 gm Btl -] 17 gm PO BID 01/05/15 Lactulose (Oral Use) [Cephulac -] 20 gm PO DAILY PRN #0 [facility] [place] 01/12/15
[2016-09-03] MEDS ORDERED: CEPHALEXIN MONOHYDRATE 500 MG CAPSULE (UD) PO SCH (10:00)
== END 2016-09-02 17:54 | disposition home or self-care (01) | DRG 191 ==
LOC: JER 02:49 → JERBED 05:24 → UNDOADMIN 06:38 → J4W 12:12 → J6S 08-29 11:40
PROVIDERS: ADMIT Internal Medicine; ATTEND Internal Medicine
DX: J44.1 Chronic obstructive pulmonary disease with (acute) exacerbation (principal); E87.0 Hyperosmolality and hypernatremia; J45.909 Unspecified asthma, uncomplicated; E78.00 Pure hypercholesterolemia, unspecified; I25.10 Atherosclerotic heart disease of native coronary artery without angina pectoris; K63.5 Polyp of colon; N40.0 Benign prostatic hyperplasia without lower urinary tract symptoms; K40.90 Unilateral inguinal hernia, without obstruction or gangrene, not specified as recurrent; I71.4 Abdominal aortic aneurysm, without rupture; I12.9 Hypertensive chronic kidney disease with stage 1 through stage 4 chronic kidney disease, or unspecified chronic kidney disease; N18.9 Chronic kidney disease, unspecified; M54.5 Low back pain; I73.9 Peripheral vascular disease, unspecified; K59.09 Other constipation; Z95.5 Presence of coronary angioplasty implant and graft; Z87.891 Personal history of nicotine dependence
CPT/HCPCS: 36415; 36600; 71010-TC; 80048; 80053; 81003; 81015; 82375; 82550; 82803; 83036; 83050; 83880; 84484; 85025; 85027; 85610; 93005; 93010; 93306-TC; 93971-TC; 94640; 94761; 99285-25; J1644

== ENCOUNTER 2017-03-10 21:44 | Observation (INO) | payer OTHER, BC ==
--- NOTE | 2017-03-10 22:07 | PDOC ---
History of Present Illness - General History Source: Patient Exam Limitations: No Limitations - History of Present Illness Initial Comments: 03/10/17 23:41 The patient is a 86 year old male, with a significant past medical history of asthma, CAD, COPD, HTN, BPH, and hypercholesterolemia, who presents to the emergency department, s/p mechanical fall with back pain and difficulty breathing. The patient reports he was walking down the steps outside of his house when he slipped and fell. He reports significant back pain. Secondary to his pain, he reports difficulty breathing. He denies hitting his head. He denies any recent fevers, chills, headache or dizziness. He denies any recent nausea, vomit, diarrhea or constipation. He denies any recent chest pain. He denies any recent dysuria, frequency, urgency or hematuria. Allergies: Penicillin Past surgical history: Right inguinal hernia repair. Aortic aneurysm repair. Social History: Former smoker. Denies EtOH use and recreational drug use. Primary Care Physician: Dr. Wu <Luciano Roldan - Last Filed: 03/11/17 06:37> <Alice Castillo - Last Filed: 03/11/17 19:45> - General Chief Complaint: Injury Stated Complaint: FALL Time Seen by Provider: 03/10/17 22:06 Past History <Luciano Roldan - Last Filed: 03/11/17 06:37> - Past Medical History Anemia: No Asthma: Yes Cancer: No Cardiac Disorders: Yes (CAD) CVA: No COPD: No CHF: No Dementia: No Diabetes: No GI Disorders: Yes (POLYPS) Disorders: Yes (BPH) HTN: Yes Hypercholesterolemia: Yes Liver Disease: No Seizures: No Thyroid Disease: No - Surgical History Abdominal Surgery: Yes (RT INGUINAL HERNIA) Appendectomy: No Cardiac Surgery: Yes (STENTING X2/AORTIC ANEURSYM REPAIR) Cholecystectomy: No Lung Surgery: No Neurologic Surgery: No Orthopedic Surgery: No - Immunization History Immunization Up to Date: Yes (flu and pneumonia) - Suicide/Smoking/Psychosocial Hx Smoking Status: Yes Smoking History: Never smoked Have you smoked in the past 12 months: No Number of Cigarettes Smoked Daily: 6 If you are a former smoker, when did you quit?: MAR 2014 Cigars Per Day: 6 'Breaking Loose' booklet given: 04/14/14 Hx Alcohol Use: No Drug/Substance Use Hx: No Substance Use Type: None Hx Substance Use Treatment: No <Alice Castillo - Last Filed: 03/11/17 19:45> - Past Medical History Allergies/Adverse Reactions: Allergies Allergy/AdvReac Type Severity Reaction Status Date / Time Penicillins Allergy Mild ITCHING/KAYLEE Verified 03/10/17 22:19 H Home Medications: Ambulatory Orders Aspirin [ASA -] 81 mg PO DAILY 11/28/14 Atorvastatin Ca [Lipitor] 40 mg PO HS 11/28/14 Losartan Potassium 25 mg PO DAILY 11/28/14 Metoprolol Succinate [Toprol XL -] 25 mg PO DAILY 11/28/14 Omeprazole 20 mg PO DAILY 11/28/14 Tamsulosin HCl [Flomax -] 0.4 mg PO DAILY 11/28/14 Tiotropium [place] [Spiriva] 18 mcg IH DAILY 11/28/14 Albuterol Sulfate Inhaler - [Ventolin HFA Inhaler -] 2 inh PO Q4H PRN 01/05/15 Amlodipine Besylate [Norvasc -] 10 mg PO DAILY 01/05/15 Cilostazol [Pletal] 100 mg PO DAILY 01/05/15 Cyanocobalamin/Folic AC/Vit B6 [Foltabs 800 Tablet] 1 each PO DAILY 01/05/15 Polyethylene Glycol 3350 [Miralax 255 gm Btl -] 17 gm PO BID 01/05/15 Lactulose (Oral Use) [Cephulac -] 20 gm PO DAILY PRN #0 [facility] 01/12/15 Acetaminophen [Tylenol .Regular Strength -] 650 mg PO Q8H tablet 09/02/16 Cephalexin Monohydrate [Keflex -] 500 mg PO BID #14 cap 09/02/16 Docusate Sodium [Colace -] 100 mg PO BID #60 cap 09/02/16 Fluticasone Prop 0.05% Nasal [Flonase -] 1 spray NS BID #1 spray 09/02/16 Prednisone [Deltasone -] 10 mg PO DAILY #26 tablet 09/02/16 Sennosides [Senna -] 1 tab PO BID #60 tablet MDD 2 09/02/16 Ibuprofen [Motrin -] 600 mg PO TID #21 tablet 03/11/17 Methocarbamol [Robaxin -] 500 mg PO TID #21 tablet 03/11/17 Review of Systems - Review of Systems Able to Perform ROS?: Yes Comments:: 03/10/17 23:42 GENERAL/CONSTITUTIONAL: No fever or chills. No weakness. HEAD, EYES, EARS, NOSE AND THROAT: No change in vision. No ear pain or discharge. No sore throat. CARDIOVASCULAR: No chest pain. RESPIRATORY: +Difficulty breathing. No cough, wheezing, or hemoptysis. GASTROINTESTINAL: No nausea, vomiting, diarrhea or constipation. GENITOURINARY: No dysuria, frequency, or change in urination. MUSCULOSKELETAL: +Back pain. No joint or muscle swelling or pain. No pain. SKIN: No rash NEUROLOGIC: No headache, vertigo, loss of consciousness, or change in strength/ sensation. ENDOCRINE: No increased thirst. No abnormal weight change. HEMATOLOGIC/LYMPHATIC: No anemia, easy bleeding, or history of blood clots. ALLERGIC/IMMUNOLOGIC: No hives or skin allergy. All Other Systems: Reviewed and Negative <Luciano Roldan - Last Filed: 03/11/17 06:37> *Physical Exam - Vital Signs Last Vital Signs Temp Pulse Resp BP Pulse Ox 97.7 F 89 20 150/74 100 03/10/17 22:06 03/10/17 22:06 03/10/17 22:06 03/10/17 22:06 03/10/17 22:06 - Physical Exam Comments: 03/11/17 06:37 GENERAL: Awake, alert, and fully oriented, in no acute distress HEAD: No signs of trauma EYES: PERRLA, EOMI, sclera anicteric, conjunctiva clear ENT: Auricles normal inspection, hearing grossly normal, nares patent, oropharynx clear without exudates. Moist mucosa NECK: Normal ROM, supple, no lymphadenopathy, JVD, or masses LUNGS: Breath sounds equal, clear to auscultation bilaterally. No wheezes, and no crackles HEART: Regular rate and rhythm, normal S1 and S2, no murmurs, rubs or gallops ABDOMEN: Soft, nontender, normoactive bowel sounds. No guarding, no rebound. No masses BACK: +Scoliosis. +Kyphosis EXTREMITIES: Normal range of motion, no edema. No clubbing or cyanosis. No cords, erythema, or tenderness NEUROLOGICAL: Cranial nerves II through XII grossly intact. Normal speech, normal gait SKIN: Warm, Dry, normal turgor, no rashes or lesions noted. <Luciano Roldan - Last Filed: 03/11/17 06:37> ED Treatment Course - LABORATORY CBC & Chemistry Diagram: 03/10/17 22:48 03/10/17 22:48 - ADDITIONAL ORDERS Additional order review: 03/10/17 22:48 RBC 4.11 MCV 96.3 H MCHC 33.6 RDW 14.2 MPV 8.7 Neutrophils % 67.4 Lymphocytes % 18.5 D Monocytes % 11.0 H Eosinophils % 2.8 Basophils % 0.3 - Medications Given in the ED: ED Medications Discontinued Medications Generic Name Dose Route Start Last Admin Trade Name Sharif PRN Reason Stop Dose Admin Ketorolac Tromethamine 60 mg 03/10/17 22:44 03/10/17 23:16 Toradol Injection - IM 03/10/17 22:45 Not Given ONCE ONE Ketorolac Tromethamine 60 mg 03/10/17 22:44 03/10/17 23:16 Toradol Injection - IVPB 03/10/17 22:45 60 mg ONCE ONE Administration Oxycodone/Acetaminophen 2 combo 03/10/17 22:44 03/10/17 23:14 Percocet 5/325 - PO 03/10/17 22:45 2 combo ONCE ONE Administration <Luciano Roldan - Last Filed: 03/11/17 06:37> - LABORATORY CBC & Chemistry Diagram: 03/10/17 22:48 03/10/17 22:48 <Alice Castillo - Last Filed: 03/11/17 19:45> Medical Decision Making - Medical Decision Making 03/11/17 00:19 Pt has scoliosis and kyphosis, and he slipped on the ice and injured his back. Now with difficulty breathing. Pt has a pulsox of 97% however, but he has severe pain with movement of his back. 03/11/17 06:44 Vastly improved in the AM after meds and sleeping in the ER. Pt is able to move and walk and he has no bruises on back or stepoffs or tenderareas on his back. He will be discharged home. Pt will take a cab home. <Alice Castillo - Last Filed: 03/11/17 19:45> *DC/Admit/Observation/Transfer - Attestations Scribe Attestion: 03/10/17 23:43 Documentation prepared by Luciano Roldan, acting as lpn medical assistant for Alice Castillo MD. <Luciano Roldan - Last Filed: 03/11/17 06:37> - Discharge Dispostion Admit: No <Alice Castillo - Last Filed: 03/11/17 19:45> Diagnosis at time of Disposition: Back pain due to injury, Scoliosis (and kyphoscoliosis), idiopathic, COPD ( chronic obstructive pulmonary disease) Back pain Qualifiers: Back pain location: thoracic back pain Chronicity: acute Back pain laterality: unspecified Qualified Code(s): M54.6 - Pain in thoracic spine - Discharge Dispostion Condition at time of disposition: Improved
[2017-03-10 22:19] VITALS: BMI 25.7
[2017-03-10] MEDS ORDERED: KETOROLAC TROMETHAMINE 60 MG/2 ML VIAL IM ONE (22:44)
[2017-03-10] MEDS ORDERED: KETOROLAC TROMETHAMINE 60 MG/2 ML VIAL IVPB ONE (22:44)
[2017-03-10] MEDS ORDERED: KETOROLAC TROMETHAMINE 30 MG/1 ML VIAL ONE (22:51)
[2017-03-10 23:16] LABS: BASO % 0.3 % (0-2.0); EOS % 2.8 % (0-4.5); HEMATOCRIT 39.6 % (35.4-49); HEMOGLOBIN 13.3 GM/dL (11.7-16.9); LYMPH % 18.5 % (8-40); MCH 32.4 pg (25.7-33.7); MCHC 33.6 g/dl (32.0-35.9); MEAN CELL VOLUME 96.3 fl (80-96); MEAN PLT VOLUME 8.7 fl (7.5-11.1); NEUT % 67.4 % (42.8-82.8); PLATELET COUNT 106 K/MM3 (134-434); RBC 4.11 M/mm3 (4.00-5.60); RDW 14.2 % (11.9-15.9); WHITE BLOOD COUNT 9.5 K/mm3 (4.0-10.0)
[2017-03-10 23:46] LABS: ANION GAP 10 (8-16); BLOOD UREA NITROGEN 31 mg/dL (7-18); CALCIUM 9.2 mg/dL (8.5-10.1); CHLORIDE 109 mmol/L (98-107); CO2 24 mmol/L (21-32); CREATININE 1.7 mg/dL (0.7-1.3); GLUCOSE,RANDOM 112 mg/dL (74-106); POTASSIUM 4.8 mmol/L (3.5-5.1); SGOT/AST 19 U/L (15-37); SGPT/ALT 16 U/L (12-78); SODIUM 143 mmol/L (136-145); TOT PROT 7.2 g/dl (6.4-8.2)
[2017-03-10 23:47] LABS: ALK PHOS 120 U/L (45-117)
[2017-03-11] MEDS ORDERED: SODIUM CHLORIDE 0.9% 500 ML INFUS.BAG IV ONE (00:08)
--- NOTE | 2017-03-11 07:22 | PDOC ---
*Physical Exam - Vital Signs Last Vital Signs Temp Pulse Resp BP Pulse Ox 97.7 F 74 18 110/68 96 03/10/17 22:06 03/11/17 05:39 03/11/17 05:39 03/11/17 05:39 03/11/17 05:39 - Physical Exam Comments: 03/11/17 07:38 Vitals: Triage Vital signs reviewed General Appearance: no acute distress, well nourished well developed, Head: Atraumatic, normocephalic Eyes: Pupils equal reactive round, extraocular movement intact Ears: TM's normal bilaterally; Nose: Nares patent bilaterally;no nasal congestion Throat: Posterior oropharynx without erythema, mucous membranes moist, Neck: Supple;No Nuchal rigidity Chest Wall: Nontender Cardiac: Regular rate and rhythm, no murmurs, no rubs, no gallops, Lungs: Diffuse wheezing bilaterally. Abdomen: Soft, nondistended, normal bowel sounds, nontender to palpation Rectal: Exam deferred Extremities: Full range of motion to all extremities, no cyanosis, clubbing, or edema Skin: Warm and dry, no rashes or lesions, no petechiae Neuro: AOX3; Cranial Nerves 2-12 grossly c intact, Strength intact to all extremities, Sensation intact to all extremities, gait normal Psych: normal mood, normal affect <Noe Schneider - Last Filed: 03/11/17 09:30> - Vital Signs Last Vital Signs Temp Pulse Resp BP Pulse Ox 97.7 F 74 18 110/68 96 03/10/17 22:06 03/11/17 05:39 03/11/17 05:39 03/11/17 05:39 03/11/17 05:39 <Wilfredo Funes - Last Filed: 03/11/17 15:33> Heart Score/ECG Review - ECG Intrepretation Comment:: 03/11/17 07:53 EKG performed at 21:57:40 demonstrates rate of 87 bpm, regular rhythm, axis equal to normal sinus. No ST elevations or T wave inversions. Septal infarct age undetermined. <Noe Schneider - Last Filed: 03/11/17 09:30> ED Treatment Course - LABORATORY CBC & Chemistry Diagram: 03/10/17 22:48 03/10/17 22:48 - ADDITIONAL ORDERS Additional order review: Laboratory Results 03/10/17 22:48 Sodium 143 Potassium 4.8 Chloride 109 H Carbon Dioxide 24 Anion Gap 10 BUN 31 H D Creatinine 1.7 H Creat Clearance w eGFR 38.59 Random Glucose 112 H D Calcium 9.2 Total Bilirubin 1.0 D AST 19 ALT 16 Alkaline Phosphatase 120 H Total Protein 7.2 Albumin 4.0 D 03/10/17 22:48 RBC 4.11 MCV 96.3 H MCHC 33.6 RDW 14.2 MPV 8.7 Neutrophils % 67.4 Lymphocytes % 18.5 D Monocytes % 11.0 H Eosinophils % 2.8 Basophils % 0.3 - Medications Given in the ED: ED Medications Discontinued Medications Generic Name Dose Route Start Last Admin Trade Name Freq PRN Reason Stop Dose Admin Ketorolac Tromethamine 60 mg 03/10/17 22:44 03/10/17 23:16 Toradol Injection - IM 03/10/17 22:45 Not Given ONCE ONE Ketorolac Tromethamine 60 mg 03/10/17 22:44 03/10/17 23:16 Toradol Injection - IVPB 03/10/17 22:45 60 mg ONCE ONE Administration Oxycodone/Acetaminophen 2 combo 03/10/17 22:44 03/10/17 23:14 Percocet 5/325 - PO 03/10/17 22:45 2 combo ONCE ONE Administration Sodium Chloride 500 ml 03/11/17 00:08 03/11/17 00:21 Normal Saline - IV 03/11/17 00:09 500 ml ONCE ONE Administration <Noe Schneider - Last Filed: 03/11/17 09:30> - LABORATORY CBC & Chemistry Diagram: 03/10/17 22:48 03/10/17 22:48 - ADDITIONAL ORDERS Additional order review: Laboratory Results 03/10/17 22:48 Sodium 143 Potassium 4.8 Chloride 109 H Carbon Dioxide 24 Anion Gap 10 BUN 31 H D Creatinine 1.7 H Creat Clearance w eGFR 38.59 Random Glucose 112 H D Calcium 9.2 Total Bilirubin 1.0 D AST 19 ALT 16 Alkaline Phosphatase 120 H Total Protein 7.2 Albumin 4.0 D 03/10/17 22:48 RBC 4.11 MCV 96.3 H MCHC 33.6 RDW 14.2 MPV 8.7 Neutrophils % 67.4 Lymphocytes % 18.5 D Monocytes % 11.0 H Eosinophils % 2.8 Basophils % 0.3 - Medications Given in the ED: ED Medications Discontinued Medications Generic Name Dose Route Start Last Admin Trade Name Sharif PRN Reason Stop Dose Admin Ketorolac Tromethamine 60 mg 03/10/17 22:44 03/10/17 23:16 Toradol Injection - IM 03/10/17 22:45 Not Given ONCE ONE Ketorolac Tromethamine 60 mg 03/10/17 22:44 03/10/17 23:16 Toradol Injection - IVPB 03/10/17 22:45 60 mg ONCE ONE Administration Oxycodone/Acetaminophen 2 combo 03/10/17 22:44 03/10/17 23:14 Percocet 5/325 - PO 03/10/17 22:45 2 combo ONCE ONE Administration Sodium Chloride 500 ml 03/11/17 00:08 03/11/17 00:21 Normal Saline - IV 03/11/17 00:09 500 ml ONCE ONE Administration <Wilfredo Funes - Last Filed: 03/11/17 15:33> Medical Decision Making - Medical Decision Making 03/11/17 07:23 The patient is a 86 year old male, with a significant past medical history of asthma, CAD, COPD, HTN, BPH, and hypercholesterolemia, who presents to the emergency department with shortness of breath s/p mechanical fall last night. After discharge, patient continues to feel short of breath and "does not feel that he is adequate to go home." Patient reports associated chest pain with exertion. He describes his chest pain as a tightness, which is exacerbated when breath. Patient states that despite falling on his back, he has no neck or back pain. He denies any diaphoresis, palpitations, or lower extremity edema. Patient is ambulatory and not on oxygen at home. Allergies: Penicillins Past Surgical History: Right inguinal hernia repair. Aortic aneurysm repair. Social History: Former smoker. No ETOH or recreational drug use. PCP: Dr. Desmond Wu 03/11/17 09:14 First call placed to Dr. Desmond Wu at 09:19. Awaiting call back. Case discussed with Dr. Wu at 09:30. <Noe Schneider - Last Filed: 03/11/17 09:30> - Medical Decision Making Status post nebs and steroids patient feels better still with wheeze still complaining of back discomfort from fall Given the patient does not feel comfortable returning home now with back injury and COPD exacerbation will observe overnight for continued steroids nebs and pain management plan. <Wilfredo Funes - Last Filed: 03/11/17 15:33> *DC/Admit/Observation/Transfer - Attestations Scribe Attestion: 03/11/17 07:26 Documentation prepared by Noe Schneider, acting as rn medical surgical for Wilfredo Funes MD. <Noe Schneider - Last Filed: 03/11/17 09:30> - Discharge Dispostion Admit: Yes <Wilfredo Funes - Last Filed: 03/11/17 15:33> Diagnosis at time of Disposition: Back pain due to injury, Scoliosis (and kyphoscoliosis), idiopathic, COPD ( chronic obstructive pulmonary disease) Back pain Qualifiers: Back pain location: thoracic back pain Chronicity: acute Back pain laterality: unspecified Qualified Code(s): M54.6 - Pain in thoracic spine - Discharge Dispostion Condition at time of disposition: Improved
[2017-03-11] MEDS ORDERED: ALBUTEROL SO4 2.5/IPRATROPIUM 0.5 INH SOL 3 ML VIAL.NEB. NEB ONE ×2 (07:31→07:52)
[2017-03-11] MEDS ORDERED: methylPREDNISolone NA SUCC 125 MG/2 ML VIAL IVPB ONE (07:31)
[2017-03-11] MEDS ORDERED: methylPREDNISolone NA SUCC 125 MG/2 ML VIAL ONE (07:52)
[2017-03-11] MEDS ORDERED: traMADol HCL 50 MG TABLET PO ONE (12:34)
--- NOTE | 2017-03-11 13:07 | HP ---
Admitting History and Physical - Primary Care Physician PCP: Desmond Wu - Admission Chief Complaint: SOB History of Present Illness: Pt slip and fell on ice in front of his house, hurting his back;pt came to ER, was evaluated and DC home but pt didn't want to leave complaing of left side CP with breathing that stop him from breathing well. Pt was p[laced in observation. Pt w/o change in breathing before the fall, no change in sputum ( at baseline brings up clear-whitish sputum), no fever/ chills/ SOB/ CP/ palpitations/ dizziness. History Source: Patient Limitations to Obtaining History: No Limitations - Past Medical History Cardiovascular: Yes: Aneurysm (of Abdominal Aorta), CAD (2 stents) Pulmonary: Yes: COPD, Pneumonia (L lung) Gastrointestinal: Yes: Constipation, GI Bleed, Other (colon polyps) Renal/: Yes: BPH - Past Surgical History Past Surgical History: Yes: Hernia Repair, AAA Repair - Smoking History Smoking history: Never smoked Have you smoked in the past 12 months: No Aproximately how many cigarettes per day: 6 If you are a former smoker, when did you quit?: MAR 2014 - Alcohol/Substance Use Hx Alcohol Use: No History of Substance Use: reports: None - Social History ADL: Independent Occupation: retired- worked for city History of Recent Travel: No Home Medications - Allergies Allergies/Adverse Reactions: Allergies Allergy/AdvReac Type Severity Reaction Status Date / Time Penicillins Allergy Mild ITCHING/KAYLEE Verified 03/10/17 22:19 H - Home Medications Home Medications: Ambulatory Orders RX: Aspirin [ASA -] 81 mg PO DAILY 11/28/14 RX: Atorvastatin Ca [Lipitor] 40 mg PO HS 11/28/14 RX: Losartan Potassium 25 mg PO DAILY 11/28/14 RX: Metoprolol Succinate [Toprol XL -] 25 mg PO DAILY 11/28/14 RX: Omeprazole 20 mg PO DAILY 11/28/14 RX: Tamsulosin HCl [Flomax -] 0.4 mg PO DAILY 11/28/14 RX: Tiotropium [place] [Spiriva] 18 mcg IH DAILY 11/28/14 RX: Albuterol Sulfate Inhaler - [Ventolin HFA Inhaler -] 2 inh PO Q4H PRN RX: Amlodipine Besylate [Norvasc -] 10 mg PO DAILY 01/05/15 RX: Cilostazol [Pletal] 100 mg PO DAILY 01/05/15 RX: Cyanocobalamin/Folic AC/Vit B6 [Foltabs 800 Tablet] 1 each PO DAILY RX: Polyethylene Glycol 3350 [Miralax 255 gm Btl -] 17 gm PO BID 01/05/15 RX: Lactulose (Oral Use) [Cephulac -] 20 gm PO DAILY PRN #0 udc 01/12/15 RX: Acetaminophen [Tylenol .Regular Strength -] 650 mg PO Q8H tablet 09/02/16 RX: Cephalexin Monohydrate [Keflex -] 500 mg PO BID #14 cap 09/02/16 RX: Docusate Sodium [Colace -] 100 mg PO BID #60 cap 09/02/16 RX: Fluticasone Prop 0.05% Nasal [Flonase -] 1 spray NS BID #1 spray 09/02/16 RX: Prednisone [Deltasone -] 10 mg PO DAILY #26 tablet 09/02/16 RX: Sennosides [Senna -] 1 tab PO BID #60 tablet MDD 2 09/02/16 Ibuprofen [Motrin -] 600 mg PO TID #21 tablet 03/11/17 Methocarbamol [Robaxin -] 500 mg PO TID #21 tablet 03/11/17 Review of Systems - Review of Systems Constitutional: denies: Chills, Diaphoresis, Fever Eyes: denies: Blind Spots, Blurred Vision, Double Vision HENT: denies: Difficult Swallowing, Ear Discharge, Ear Pain, Epistaxis, Nasal Congestion, Throat Pain Neck: denies: Pain on Movement, Stiffness, Tenderness Cardiovascular: reports: Chest Pain (LEFT SIDE WITH INPIRATION). denies: Edema , Palpitations Respiratory: reports: Cough. denies: Wheezing Gastrointestinal: denies: Abdominal Pain, Nausea, Vomiting Genitourinary: denies: Burning, Discharge, Dysuria, Flank Pain Musculoskeletal: denies: Back Pain, Extremity Pain, Joint Swelling, Muscle Pain Integumentary: denies: Bruising, Eczema, Rash Neurological: denies: Change in LOC, Change in Speech, Confusion, Numbness, Unsteady Gait Endocrine: denies: Excessive Sweating, Intolerance to Cold Hematology/Lymphatic: denies: Easily Bruised, Excessive Bleeding Psychiatric: denies: Anxiety, Depression Physical Examination Vital Signs: Vital Signs Temperature 97.7 F 03/10/17 22:06 Pulse Rate 68 03/11/17 12:16 Respiratory Rate 20 03/11/17 12:16 Blood Pressure 126/75 03/11/17 12:16 O2 Sat by Pulse Oximetry (%) 95 03/11/17 12:16 Constitutional: Yes: No Distress, Calm Eyes: Yes: Conjunctiva Clear, EOM Intact HENT: Yes: Normocephalic. No: Epistaxis, Pharyngeal Erythema, Thrush Neck: Yes: Trachea Midline Cardiovascular: Yes: Regular Rate and Rhythm, S1, S2 Respiratory: Yes: Regular, CTA Bilaterally, Diminished (secondary to pain) Gastrointestinal: Yes: Normal Bowel Sounds, Soft. No: Tenderness ...Rectal Exam: Yes: Deferred Musculoskeletal: No: Back Pain, Joint Stiffness, Joint Swelling Extremities: No: Cold, Cool Edema: No Integumentary: No: Bruising, Rash, Skin Tear Neurological: Yes: Alert, Oriented, Other (symmetric sensory and motor examination in UE/ LE/ face.) ...Motor Strength: WNL Psychiatric: Yes: Alert, Oriented Labs: CBC, BMP 03/10/17 22:48 03/10/17 22:48 Imaging - Results X-ray: Report Reviewed Problem List - Problems (1) Chest pain Code(s): R07.9 - CHEST PAIN, UNSPECIFIED (2) Dyspnea Code(s): R06.00 - DYSPNEA, UNSPECIFIED (3) COPD (chronic obstructive pulmonary disease) Code(s): J44.9 - CHRONIC OBSTRUCTIVE PULMONARY DISEASE, UNSPECIFIED Qualifiers: COPD type: unspecified COPD Qualified Code(s): J44.9 - Chronic obstructive pulmonary disease, unspecified (4) BPH (benign prostatic hyperplasia) Code(s): N40.0 - BENIGN PROSTATIC HYPERPLASIA WITHOUT LOWER URINRY TRACT SYMP (5) Constipation Code(s): K59.00 - CONSTIPATION, UNSPECIFIED (6) Hypertension Code(s): I10 - ESSENTIAL (PRIMARY) HYPERTENSION Assessment/Plan Placed in observation Serial CE Pain Control AM labs
[2017-03-11] MEDS ORDERED: traMADol HCL 50 MG TABLET ONE (13:18)
--- NOTE | 2017-03-11 13:26 | EKG ---
Test Reason : Blood Pressure : / mmHG Vent. Rate : 087 BPM Atrial Rate : 087 BPM P-R Int : 158 ms QRS Dur : 096 ms QT Int : 368 ms P-R-T Axes : 081 022 047 degrees QTc Int : 442 ms NORMAL SINUS RHYTHM SEPTAL INFARCT , AGE UNDETERMINED ABNORMAL ECG WHEN COMPARED WITH ECG OF 26-AUG-2016 03:33, PREMATURE VENTRICULAR COMPLEXES ARE NO LONGER PRESENT Confirmed by ROSALVA BIRCH MD ([id number]) on 03/11/2017 1:26:23 PM Referred By: Confirmed By:ROSALVA BIRCH MD
[2017-03-11] MEDS ORDERED: LACTULOSE 20 GM/30 ML UDC (FOR ORAL USE ONLY) PO PRN (14:26)
[2017-03-11] MEDS ORDERED: ALBUTEROL SO4 18 GM HFA INHALER IH PRN (14:26)
[2017-03-11] MEDS ORDERED: PATIENT'S OWN MEDICATION (NON-FORMULARY) (Omeprazole 20 MG) PO SCH (14:30)
[2017-03-11] MEDS ORDERED: TIOTROPIUM BROMIDE 18 MCG/INH (DEVICE W/ 5 CAPSULES) IH SCH (14:30)
[2017-03-11] MEDS ORDERED: PT OWN MED DRAWER 7, Y5N ONE (15:49)
[2017-03-11] MEDS: predniSONE 20 MG TABLET (UD) PO SCH (16:01)
[2017-03-11] MEDS: ASPIRIN 81 MG CHEWABLE TABLETS PO SCH (16:01)
[2017-03-11] MEDS: TAMSULOSIN HCL 0.4 MG CAP.ER.24H (FP) PO SCH (16:01)
[2017-03-11] MEDS: LOSARTAN POTASSIUM 25 MG TABLET PO SCH (16:02)
[2017-03-11] MEDS: METOPROLOL SUCCINATE 25 MG TAB.SR.24H (FP) PO SCH (16:03)
[2017-03-11] MEDS: amLODIPine BESYLATE 10 MG TABLET (FP) PO SCH (16:03)
[2017-03-11] MEDS: ACETAMINOPHEN WITH CODEINE 300MG/30MG TABLET PO PRN ×2 (16:04→22:07)
[2017-03-11] MEDS: CILOSTAZOL 100 MG TABLET PO SCH (20:45)
[2017-03-11] MEDS ORDERED: POLYETHYLENE GLYCOL 3350 255 GM BTL PO SCH (22:00)
[2017-03-11] MEDS: ATORVASTATIN CA 40 MG TABLET (FP) PO SCH (22:07)
[2017-03-11] MEDS: SENNOSIDES 8.6MG TABLET (FP) PO SCH (22:08)
[2017-03-11] MEDS: DOCUSATE SODIUM 100 MG CAPSULE (FP) PO SCH (22:14)
[2017-03-11] MEDS: FLUTICASONE PROP 0.05% 16 GM NASAL SPRAY NS SCH (22:14)
[2017-03-11] MEDS: POLYETHYLENE GLYCOL 3350 119 GM BTL PO SCH (23:19)
[2017-03-12] MEDS: ACETAMINOPHEN WITH CODEINE 300MG/30MG TABLET PO PRN ×2 (05:47→14:35)
[2017-03-12] MEDS: PANTOPRAZOLE 20 MG TABLET (FP) PO SCH (06:17)
[2017-03-12 08:16] LABS: HEMOGLOBIN 11.5 GM/dL (11.7-16.9); MCH 32.1 pg (25.7-33.7); MCHC 32.9 g/dl (32.0-35.9); MEAN CELL VOLUME 97.7 fl (80-96); MEAN PLT VOLUME 9.3 fl (7.5-11.1); PLATELET COUNT 89 K/MM3 (134-434); RBC 3.58 M/mm3 (4.00-5.60); RDW 14.2 % (11.9-15.9)
[2017-03-12 08:47] LABS: ALBUMIN 3.3 g/dl (3.4-5.0); ANION GAP 9 (8-16); BLOOD UREA NITROGEN 49 mg/dL (7-18); CALCIUM 8.5 mg/dL (8.5-10.1); CHLORIDE 108 mmol/L (98-107); CO2 23 mmol/L (21-32); GLUCOSE,RANDOM 139 mg/dL (74-106); POTASSIUM 5.4 mmol/L (3.5-5.1); SGPT/ALT 15 U/L (12-78); SODIUM 140 mmol/L (136-145)
[2017-03-12 08:50] LABS: ALK PHOS 95 U/L (45-117); BILIRUBIN,TOTAL 0.6 mg/dL (0.2-1.0); CREATININE 1.9 mg/dL (0.7-1.3); SGOT/AST 15 U/L (15-37); TOT PROT 6.3 g/dl (6.4-8.2)
[2017-03-12] MEDS: LOSARTAN POTASSIUM 25 MG TABLET PO SCH (10:18)
[2017-03-12] MEDS: SENNOSIDES 8.6MG TABLET (FP) PO SCH ×2 (10:18→23:15)
[2017-03-12] MEDS: ASPIRIN 81 MG CHEWABLE TABLETS PO SCH (10:18)
[2017-03-12] MEDS: TAMSULOSIN HCL 0.4 MG CAP.ER.24H (FP) PO SCH (10:18)
[2017-03-12] MEDS: predniSONE 20 MG TABLET (UD) PO SCH (10:18)
[2017-03-12] MEDS: METOPROLOL SUCCINATE 25 MG TAB.SR.24H (FP) PO SCH (10:18)
[2017-03-12] MEDS: amLODIPine BESYLATE 10 MG TABLET (FP) PO SCH (10:18)
[2017-03-12] MEDS: DOCUSATE SODIUM 100 MG CAPSULE (FP) PO SCH ×2 (10:18→23:15)
[2017-03-12] MEDS: CILOSTAZOL 100 MG TABLET PO SCH (10:19)
[2017-03-12] MEDS: FLUTICASONE PROP 0.05% 16 GM NASAL SPRAY NS SCH ×2 (10:19→23:17)
[2017-03-12] MEDS: POLYETHYLENE GLYCOL 3350 119 GM BTL PO SCH ×2 (10:23→23:16)
[2017-03-12] MEDS: TIOTROPIUM BROMIDE 18 MCG/INH (DEVICE W/ 5 CAPSULES) IH SCH (12:26)
[2017-03-12] MEDS ORDERED: SODIUM POLYSTYRENE SULFONATE 15 GM/60 ML BOTTLE PO ONE (13:59)
--- NOTE | 2017-03-12 14:04 | PN ---
Progress Note, Physician History of Present Illness: Pt still with CP, difficult to breath at time. Pt w/o dizziness, abd pain, N, V - Current Medication List Current Medications: Active Medications Acetaminophen/Codeine Phosphate (Tylenol # 3 -) 2 tab PO Q6H PRN PRN Reason: FEVER OR PAIN Last Admin: 03/12/17 05:47 Dose: 2 tab Albuterol Sulfate (Ventolin Hfa Inhaler -) 2 puff IH Q6H PRN PRN Reason: SHORT OF BREATH/WHEEZING Amlodipine Besylate (Norvasc -) 10 mg PO DAILY [facility] Last Admin: 03/12/17 10:18 Dose: 10 mg Aspirin (Asa -) 81 mg PO DAILY [facility] Last Admin: 03/12/17 10:18 Dose: 81 mg Atorvastatin Calcium (Lipitor -) 40 mg PO HS [facility] Last Admin: 03/11/17 22:07 Dose: 40 mg Cilostazol (Pletal -) 100 mg PO DAILY [facility] Last Admin: 03/12/17 10:19 Dose: 100 mg Docusate Sodium (Colace -) 100 mg PO BID [facility] Last Admin: 03/12/17 10:18 Dose: 100 mg Fluticasone Propionate (Flonase -) 1 spray NS BID [facility] Last Admin: 03/12/17 10:19 Dose: 1 spray Lactulose (Cephulac (Oral Use)) 20 gm PO DAILY PRN PRN Reason: CONSTIPATION Losartan Potassium (Cozaar -) 25 mg PO DAILY [facility] Last Admin: 03/12/17 10:18 Dose: 25 mg Metoprolol Succinate (Toprol Xl -) 25 mg PO DAILY [facility] Last Admin: 03/12/17 10:18 Dose: 25 mg Pantoprazole Sodium (Protonix -) 20 mg PO ACBK [facility] Last Admin: 03/12/17 06:17 Dose: 20 mg Polyethylene Glycol (Miralax (For Daily Use) -) 17 gm PO BID [facility] Last Admin: 03/12/17 10:23 Dose: 17 gm Prednisone (Deltasone -) 10 mg PO DAILY [facility] Last Admin: 03/12/17 10:18 Dose: 10 mg Senna (Senna -) 1 tab PO BID [facility] Last Admin: 03/12/17 10:18 Dose: 1 tab Sodium Polystyrene Sulfonate (Kayexalate -) 15 gm PO ONCE ONE Stop: 03/12/17 14:00 Tamsulosin HCl (Flomax -) 0.4 mg PO DAILY [facility] Last Admin: 03/12/17 10:18 Dose: 0.4 mg Tiotropium [place] (Spiriva -) 1 puff IH DAILY [facility] Last Admin: 03/12/17 12:26 Dose: 1 puff - Objective Vital Signs: Vital Signs Temperature 97.7 F 03/12/17 05:50 Pulse Rate 68 03/12/17 05:50 Respiratory Rate 20 03/12/17 05:50 Blood Pressure 108/58 03/12/17 05:50 O2 Sat by Pulse Oximetry (%) 96 03/12/17 07:00 Constitutional: Yes: No Distress, Calm Cardiovascular: Yes: Regular Rate and Rhythm, S1, S2 Respiratory: Yes: Regular, CTA Bilaterally, Other (coarse BS at bases) Gastrointestinal: Yes: Normal Bowel Sounds, Soft. No: Tenderness Edema: No Neurological: Yes: Alert, Oriented Labs: CBC, BMP 03/12/17 07:30 03/12/17 07:30 Problem List - Problems (1) Chest pain Code(s): R07.9 - CHEST PAIN, UNSPECIFIED (2) Dyspnea Code(s): R06.00 - DYSPNEA, UNSPECIFIED (3) COPD (chronic obstructive pulmonary disease) Code(s): J44.9 - CHRONIC OBSTRUCTIVE PULMONARY DISEASE, UNSPECIFIED Qualifiers: COPD type: unspecified COPD Qualified Code(s): J44.9 - Chronic obstructive pulmonary disease, unspecified (4) BPH (benign prostatic hyperplasia) Code(s): N40.0 - BENIGN PROSTATIC HYPERPLASIA WITHOUT LOWER URINRY TRACT SYMP (5) Constipation Code(s): K59.00 - CONSTIPATION, UNSPECIFIED (6) Hypertension Code(s): I10 - ESSENTIAL (PRIMARY) HYPERTENSION (7) Hyperkalemia Code(s): E87.5 - HYPERKALEMIA (8) CRF (chronic renal failure) Code(s): N18.9 - CHRONIC KIDNEY DISEASE, UNSPECIFIED Assessment/Plan Placed in observation Serial CE- negative Pain Control Kayaxalate BMP in AM to monitor potassium
[2017-03-12] MEDS: ATORVASTATIN CA 40 MG TABLET (FP) PO SCH (23:15)
[2017-03-13] MEDS: PANTOPRAZOLE 20 MG TABLET (FP) PO SCH (06:19)
[2017-03-13 08:06] LABS: ANION GAP 8 (8-16); BLOOD UREA NITROGEN 52 mg/dL (7-18); CALCIUM 8.3 mg/dL (8.5-10.1); CHLORIDE 107 mmol/L (98-107); CO2 24 mmol/L (21-32); GLUCOSE,RANDOM 69 mg/dL (74-106); POTASSIUM 4.5 mmol/L (3.5-5.1); SODIUM 139 mmol/L (136-145)
[2017-03-13 08:07] LABS: CREATININE 1.8 mg/dL (0.7-1.3)
[2017-03-13] MEDS ORDERED: PT OWN MED DRAWER 7, Y5N ONE (09:46)
[2017-03-13] MEDS: POLYETHYLENE GLYCOL 3350 119 GM BTL PO SCH (09:56)
[2017-03-13] MEDS: FLUTICASONE PROP 0.05% 16 GM NASAL SPRAY NS SCH (09:57)
[2017-03-13] MEDS: TIOTROPIUM BROMIDE 18 MCG/INH (DEVICE W/ 5 CAPSULES) IH SCH (09:57)
[2017-03-13] MEDS: SENNOSIDES 8.6MG TABLET (FP) PO SCH (09:58)
[2017-03-13] MEDS: TAMSULOSIN HCL 0.4 MG CAP.ER.24H (FP) PO SCH (09:58)
[2017-03-13] MEDS: amLODIPine BESYLATE 10 MG TABLET (FP) PO SCH (09:58)
[2017-03-13] MEDS: predniSONE 20 MG TABLET (UD) PO SCH (09:58)
[2017-03-13] MEDS: ASPIRIN 81 MG CHEWABLE TABLETS PO SCH (09:59)
[2017-03-13] MEDS: CILOSTAZOL 100 MG TABLET PO SCH (09:59)
[2017-03-13] MEDS: LOSARTAN POTASSIUM 25 MG TABLET PO SCH (09:59)
[2017-03-13] MEDS: METOPROLOL SUCCINATE 25 MG TAB.SR.24H (FP) PO SCH (09:59)
[2017-03-13] MEDS: DOCUSATE SODIUM 100 MG CAPSULE (FP) PO SCH (09:59)
[2017-03-13 15:11] VITALS: BP 145/67; PULSE 68; TEMP 97.7
--- NOTE | 2017-03-13 16:34 | DS ---
Physical Examination Vital Signs: Vital Signs Temperature 97.7 F 03/13/17 15:10 Pulse Rate 68 03/13/17 15:10 Respiratory Rate 20 03/13/17 15:10 Blood Pressure 145/67 03/13/17 15:10 O2 Sat by Pulse Oximetry (%) 94 L 03/13/17 14:00 Findings/Remarks: Pt's chest pain is better, now can take deep breaths in; no SPB, palpitations, dizziness, abd pain, N, V. Pt w/o back pain, motor weakness or sensory deficit in UE/ LE/ face. Pt had BM today. Constitutional: Yes: No Distress, Calm Cardiovascular: Yes: Regular Rate and Rhythm, S1, S2 Respiratory: Yes: Regular, CTA Bilaterally. No: Other Gastrointestinal: Yes: Normal Bowel Sounds, Soft, Other (coarse BS at bases). No: Tenderness Edema: No Neurological: Yes: Alert, Oriented Labs: CBC, BMP 03/12/17 07:30 03/13/17 07:00 Discharge Summary Reason For Visit: SCOLIOSIS IDIOPATHIC Current Active Problems Back pain (Acute) Back pain due to injury (Acute) COPD (chronic obstructive pulmonary disease) (Acute) COPD (chronic obstructive pulmonary disease) (Acute) CRF (chronic renal failure) (Acute) Chest pain (Acute) Dyspnea (Acute) Hyperkalemia (Acute) Scoliosis (and kyphoscoliosis), idiopathic (Acute) Hospital Course: Pt came to ER after slipped and fell in front of his house; pt with left sided CP with inspiration associated with dyspnea, was placed in obsevation. Pt was noticed to have abnormal elevated K, treated w kayexalate. Pt's pain and breathing status improved. Pt to be DC'ed home with f/u this week with own PCP. Condition: Improved - Instructions Diet, Activity, Other Instructions: Low potassium, low salt diet. To see Own Primary Physician this week. Referrals: Desmond Wu MD [Staff Physician] - Disposition: HOME - Home Medications Comprehensive Discharge Medication List: Ambulatory Orders Aspirin [ASA -] 81 mg PO DAILY 11/28/14 Atorvastatin Ca [Lipitor] 40 mg PO HS 11/28/14 Losartan Potassium 25 mg PO DAILY 11/28/14 Metoprolol Succinate [Toprol XL -] 25 mg PO DAILY 11/28/14 Omeprazole 20 mg PO DAILY 11/28/14 Tamsulosin HCl [Flomax -] 0.4 mg PO DAILY 11/28/14 Tiotropium [place] [Spiriva] 18 mcg IH DAILY 11/28/14 Albuterol Sulfate Inhaler - [Ventolin HFA Inhaler -] 2 inh PO Q4H PRN 01/05/15 Amlodipine Besylate [Norvasc -] 10 mg PO DAILY 01/05/15 Cilostazol [Pletal] 100 mg PO DAILY 01/05/15 Cyanocobalamin/Folic AC/Vit B6 [Foltabs 800 Tablet] 1 each PO DAILY 01/05/15 Polyethylene Glycol 3350 [Miralax 255 gm Btl -] 17 gm PO BID 01/05/15 Lactulose (Oral Use) [Cephulac -] 20 gm PO DAILY PRN #0 udc 01/12/15 Acetaminophen [Tylenol .Regular Strength -] 650 mg PO Q8H tablet 09/02/16 Cephalexin Monohydrate [Keflex -] 500 mg PO BID #14 cap 09/02/16 Docusate Sodium [Colace -] 100 mg PO BID #60 cap 09/02/16 Fluticasone Prop 0.05% Nasal [Flonase -] 1 spray NS BID #1 spray 09/02/16 Prednisone [Deltasone -] 10 mg PO DAILY #26 tablet 09/02/16 Sennosides [Senna -] 1 tab PO BID #60 tablet MDD 2 09/02/16 Ibuprofen [Motrin -] 600 mg PO TID #21 tablet 03/11/17 Methocarbamol [Robaxin -] 500 mg PO TID #21 tablet 03/11/17
== END 2017-03-13 17:45 | disposition home or self-care (01) ==
LOC: SUPCPDRO 21:44 → JER 21:44 → JERBED 03-11 09:55 → J6S 03-11 13:58
PROVIDERS: ADMIT Specialist; ATTEND Specialist
PROC: 3E0333Z Introduction of Anti-inflammatory into Peripheral Vein, Percutaneous Approach (ICD-10-PCS; principal; 2017-03-11)
PROC: 3E0337Z Introduction of Electrolytic and Water Balance Substance into Peripheral Vein, Percutaneous Approach (ICD-10-PCS; 2017-03-11)
PROC: 3E0F7GC Introduction of Other Therapeutic Substance into Respiratory Tract, Via Natural or Artificial Opening (ICD-10-PCS; 2017-03-11)
DX: M54.6 Pain in thoracic spine (principal); M41.20 Other idiopathic scoliosis, site unspecified; R07.9 Chest pain, unspecified; R06.00 Dyspnea, unspecified; J44.9 Chronic obstructive pulmonary disease, unspecified; E78.5 Hyperlipidemia, unspecified; I25.10 Atherosclerotic heart disease of native coronary artery without angina pectoris; N40.0 Benign prostatic hyperplasia without lower urinary tract symptoms; K59.00 Constipation, unspecified; E87.5 Hyperkalemia; I12.9 Hypertensive chronic kidney disease with stage 1 through stage 4 chronic kidney disease, or unspecified chronic kidney disease; N18.9 Chronic kidney disease, unspecified; Z79.82 Long term (current) use of aspirin; Z88.0 Allergy status to penicillin; W10.9XXA Fall (on) (from) unspecified stairs and steps, initial encounter; Y93.89 Activity, other specified; Y92.008 Other place in unspecified non-institutional (private) residence as the place of occurrence of the external cause
CPT/HCPCS: 36415; 71045-TC; 72070-TC; 72100-TC; 80048; 80053; 82550; 84484; 85025; 85027; 93005; 93010; 94640; 96374; 96375; 99284-25; G0378

== ENCOUNTER 2018-07-02 00:37 | Emergency (ER) | payer OTHER, BC ==
[2018-07-02 01:01] VITALS: BP 148/70; PULSE 92; TEMP 98.2; BMI 25.1
--- NOTE | 2018-07-02 01:43 | PDOC ---
History of Present Illness - General Chief Complaint: Pain Stated Complaint: ABD PAIN Time Seen by Provider: 07/02/18 01:36 History Source: Patient Exam Limitations: No Limitations - History of Present Illness Initial Comments: 07/02/18 01:41 88 yo M with a hx of AAA (repaired in 1997), CAD (s/p 3x stents, no NM, most recent stent 2001), HTN, COPD, and HLD presents to the emergency department with RUQ and LUQ pain with concurrent constipation. Per the patient, the pain began yesterday night and radiates throughout the abdomen. Pain is described as gassy and endorses having constipation for 7 days (has not used home remedies). Per the patient, he denies nausea, vomiting, dysuria, hematuria, and hematochezia, but endorses not urinating since 5 pm yesterday. Denies the following: fever, chills, SOB, chest pain, visual changes, and leg pain/ swelling. Allergies: NKDA Social: Former tobacco user. Past History - Past Medical History Allergies/Adverse Reactions: Allergies Allergy/AdvReac Type Severity Reaction Status Date / Time Penicillins Allergy Mild ITCHING/KAYLEE Verified 07/02/18 01:01 H Home Medications: Ambulatory Orders Aspirin [ASA -] 81 mg PO DAILY 11/28/14 Atorvastatin Ca [Lipitor] 40 mg PO HS 11/28/14 Losartan Potassium 25 mg PO DAILY 11/28/14 Metoprolol Succinate [Toprol XL -] 25 mg PO DAILY 11/28/14 Tamsulosin HCl [Flomax -] 0.4 mg PO DAILY 11/28/14 Tiotropium [place] [Spiriva] 18 mcg IH DAILY 11/28/14 Cilostazol [Pletal] 100 mg PO BID 01/05/15 Albuterol Sulfate Inhaler - [Ventolin HFA Inhaler -] 1 - 2 inh PO Q4H 08/31/17 Cholecalciferol (Vitamin D3) [Vitamin D3] 2,000 unit PO DAILY 08/31/17 Fluticasone/Salmeterol [Advair 250-50 Diskus] 1 each IH BID 08/31/17 Folic Acid 1 mg PO DAILY 08/31/17 Furosemide [Lasix] 20 mg PO ASDIR 08/31/17 Albuterol 0.083% Nebulizer Christine [Ventolin 0.083% Nebulizer Soln -] 1 amp NEB RQID amp 09/07/17 Cefuroxime Axetil [Ceftin -] 250 mg PO BID #7 tablet MDD 2 09/07/17 Clopidogrel Bisulfate [Plavix -] 75 mg PO DAILY #30 tablet MDD 1 09/07/17 Guaifenesin/D-Methorphan Hb [Diabetic Tussin Dm -] 10 ml PO Q6H ml 09/07/17 Nicotine Patch [Nicoderm Patch -] 14 mg TD DAILY #30 patch MDD 1 09/07/17 Polyethylene Glycol 3350 [Miralax 119 gm Btl -] 17 gm PO DAILY bottle 09/07/17 Prednisone See Taper PO DAILY #24 tablet 09/07/17 Ranitidine [Zantac -] 150 mg PO DAILY 14 Days #14 tablet MDD 1 09/07/17 Sennosides [Senna -] 2 tab PO HS tablet 09/07/17 Polyethylene Glycol 3350 [Miralax (For Daily Use) -] 17 gm PO DAILY #1 bottle Anemia: No Asthma: Yes Cancer: No Cardiac Disorders: Yes (CAD) CVA: No COPD: No CHF: No Dementia: No Diabetes: No GI Disorders: Yes (POLYPS) Disorders: Yes (BPH) HTN: Yes Hypercholesterolemia: Yes Liver Disease: No Seizures: No Thyroid Disease: No - Surgical History Abdominal Surgery: Yes (RT INGUINAL HERNIA) Appendectomy: No Cardiac Surgery: Yes (STENTING X2/AORTIC ANEURSYM REPAIR) Cholecystectomy: No Lung Surgery: No Neurologic Surgery: No Orthopedic Surgery: No - Immunization History Immunization Up to Date: Yes (flu and pneumonia) - Suicide/Smoking/Psychosocial Hx Smoking Status: Yes Smoking History: Former smoker Have you smoked in the past 12 months: No Number of Cigarettes Smoked Daily: 2 If you are a former smoker, when did you quit?: MAR 2014 Cigars Per Day: 6 Information on smoking cessation initiated: No 'Breaking Loose' booklet given: 06/17/13 Hx Alcohol Use: Yes (Social) Drug/Substance Use Hx: No Substance Use Type: None Hx Substance Use Treatment: No Review of Systems - Review of Systems Able to Perform ROS?: Yes Is the patient limited Czech proficient: No Constitutional: No: Chills, Diaphoresis, Fever HEENTM: No: Blurred Vision, Recent change in vision, Nose Pain, Hearing Loss, Mouth Pain Respiratory: No: Cough, Shortness of Breath, SOB with Exertion, Hemoptysis Cardiac (ROS): No: Chest Pain, Lightheadedness, Palpitations, Syncope, Chest Tightness ABD/GI: Yes: Constipated. No: Diarrhea, Nausea, Rectal Bleeding, Vomiting, Tarry Stools : No: Burning, Dysuria, Hematuria, Incontinence Musculoskeletal: No: Back Pain, Joint Pain, Neck Pain Integumentary: No: Bruising, Dryness, Rash Neurological: No: Headache, Numbness, Tingling, Tremors, Ataxia Psychiatric: No: Change in Appetite Endocrine: No: Unexplained Weight Gain Hematologic/Lymphatic: No: Anemia *Physical Exam - Vital Signs Last Vital Signs Temp Pulse Resp BP Pulse Ox 98.2 F 92 H 18 148/70 98 07/02/18 00:37 07/02/18 00:37 07/02/18 00:37 07/02/18 00:37 07/02/18 00:37 - Physical Exam General Appearance: Yes: Nourished, Appropriately Dressed. No: Apparent Distress, Intoxicated HEENT: positive: EOMI, CHAR, Normal Voice, Symmetrical, Pharynx Normal, Hearing Grossly Normal. negative: Pale Conjunctivae, Scleral Icterus (R), Scleral Icterus (L), Muffled/Hoarse voice, Pharyngeal Erythema, Tonsillar Exudate, Tonsillar Erythema, Excessive drooling Neck: positive: Trachea midline, Supple. negative: Tender, Lymphadenopathy (R) , Lymphadenopathy (L), Tender lateral, Tender midline Respiratory/Chest: positive: Lungs Clear, Normal Breath Sounds. negative: Chest Tender, Respiratory Distress, Accessory Muscle Use, Crackles, Rales, Rhonchi, Stridor Cardiovascular: positive: Regular Rhythm, Regular Rate, S1, S2. negative: Systolic Murmur Gastrointestinal/Abdominal: positive: Normal Bowel Sounds, Tender ( periumbilical pain. ), Flat, Soft. negative: Distended, Guarding, Rebound Lymphatic: negative: Adenopathy Musculoskeletal: positive: Normal Inspection. negative: CVA Tenderness, Vertebral Tenderness Extremity: positive: Normal Capillary Refill, Normal Inspection, Normal Range of Motion. negative: Tender Integumentary: positive: Normal Color, Dry, Warm. negative: Swelling, Ecchymosis Neurologic: positive: relationship manager II-XII NML intact, Fully Oriented, Alert, Normal Mood/ Affect, Normal Response, Motor Strength 5/5. negative: EOM Palsy, Facial Droop , Sensory Deficit Medical Decision Making - Medical Decision Making 07/02/18 05:28 88 yo M with a hx of AAA (repaired in 1997), CAD (s/p 3x stents, no NM, most recent stent 2001), HTN, COPD, and HLD presents to the emergency department with RUQ and LUQ pain with concurrent constipation. Initial vitals: Initial Vital Signs Temp Pulse Resp BP Pulse Ox 98.2 F 92 H 18 148/70 98 07/02/18 00:37 07/02/18 00:37 07/02/18 00:37 07/02/18 00:37 07/02/18 00:37 Work up: ddx: patient is presenting with abdominal pain with concurrent constipation. physical exam showed mild tenderness in the periumbilical region. of note, the patient also described difficulty urinating. 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 the patient will have a bladder scan and then a lactulose treatment US shows POST void residual volume as 46. Patient was able to urinate on his own. Patient was given return precautions and follow up advisement with primary medical doctor. He was given lactulose and a prescription of miralax for constipation. Dispo: Discharge *DC/Admit/Observation/Transfer Diagnosis at time of Disposition: Constipation Qualifiers: Constipation type: unspecified constipation type Qualified Code(s): K59.00 - Constipation, unspecified - Discharge Dispostion Disposition: HOME Condition at time of disposition: Fair Decision to Admit order: No - Prescriptions Prescriptions: Polyethylene Glycol 3350 [Miralax (For Daily Use) -] 17 gm PO DAILY #1 bottle - Referrals Referrals: Desmond Wu MD [Primary Care Provider] - - Patient Instructions Printed Discharge Instructions: DI for Constipation Additional Instructions: you were seen for your constipation. please take the medication prescribed to you as directed. please follow up with your primary medical doctor within 1 week for follow up care. please return to the emergency department if you have worsening pain or new concerning symptoms such as blood in the stool, nausea and vomiting, and fevers/chills - Post Discharge Activity
[2018-07-02] MEDS ORDERED: LACTULOSE 20 GM/30 ML UDC (FOR ORAL USE ONLY) PO ONE (02:08)
[2018-07-02] MEDS ORDERED: LACTULOSE 20 GM/30 ML UDC (FOR ORAL USE ONLY) ONE (02:24)
[2018-07-02] MEDS ORDERED: MAG HYDROX/AL HYDROX/SIMETH 30 ML UNIT-DOSE CUP PO ONE (02:27)
--- NOTE | 2018-07-02 02:33 | PDOC ---
Documentation entered by Maged Zamora SCRIBE, acting as scribe for Alice Castillo MD. Alice Castillo MD: This documentation has been prepared by the Noah coulter Daniel, SCRIBE, under my direction and personally reviewed by me in its entirety. I confirm that the documentation accurately reflects all work, treatment, procedures, and medical decision making performed by me. Attending Attestation - Resident Resident Name: SergeJudd - ED Attending Attestation I have performed the following: I have examined & evaluated the patient, The case was reviewed & discussed with the resident, I agree w/resident's findings & plan - HPI HPI: 07/02/18 01:47 The patient is a 88 year old male with a past medical history of AAA (s/p repair 20 years ago), HTN, HLD, CAD, and COPD here today for evaluation of abdominal pain. The patient reports that he began to right and left upper quadrant abdominal pain 7 days with associated constipation and bloating. He notes that his last bowel movement was hard. He also reports dysuria since yesterday. Patient denies headache, lightheadedness. Denies fever, chills. Denies chest pain, shortness of breath. Denies nausea, vomiting, diarrhea. Allergies: penicillins PCP: Desmond Wu - Physicial Exam PE: 07/02/18 02:26 Agree with resident exam. Pt hgas gassy bowel sounds. Soft Nt, ND. - Medical Decision Making 07/02/18 02:26 Patient Name: AGUILA FIORE THIS IS A PRELIMINARY REPORT FROM [facility] DATE OF SERVICE: 2018-07-02 01:51:44 IMAGES: 10 EXAM: Ultrasound PELVIC / BLADDER US HISTORY: Post void residual COMPARISON: None. FINDINGS: Prostate measures 3.7 x 3.1 x 3.7 cm Bladder measures 6.9 x 6.8 x 9.9 cm. Postvoid, bladder measures 5.2 x 3.5 x 4.8 cm with a postvoid residual of 45.6 ml Bilateral ureteral jets are visualized IMPRESSION: Postvoid residual is 45.6 ml 07/02/18 02:27 Lactulose and maalox will given Pt feeling better and he is ready to go home.
== END 2018-07-02 02:35 | disposition home or self-care (01) ==
LOC: JER 00:37
DX: K59.00 Constipation, unspecified (principal); I25.10 Atherosclerotic heart disease of native coronary artery without angina pectoris; I10 Essential (primary) hypertension; Z95.5 Presence of coronary angioplasty implant and graft; J44.9 Chronic obstructive pulmonary disease, unspecified; E78.5 Hyperlipidemia, unspecified; R39.198 Other difficulties with micturition
CPT/HCPCS: 71250-TC; 76856-TC; 99281-25

== ENCOUNTER 2018-09-06 07:39 | Inpatient (IN) | payer OTHER, BC ==
--- NOTE | 2018-09-06 07:58 | PDOC ---
History of Present Illness - General Chief Complaint: Shortness of Breath Stated Complaint: DIFFICULTY BREATHING Time Seen by Provider: 09/06/18 07:53 - History of Present Illness Initial Comments: 09/06/18 08:27 HPI obtained from EMS and EMR as patient in RD at presentation 88 year old male with a PMH of COPD (not on home O2), CAD (s/p stent x3, no ND) , HLD, AAA (s/p repair 1997), HLD presents to the ED in respiratory distress. Patient using accessory muscles @ presentation. Respiratory called for BIPAP Allergy: Penicillin Surgical: AAA repair, R inguinal hernia Social: current smoker PMD: Dr. uW Window Clerk: Dr. Dandre Werner ([facility]) Past History - Past Medical History Allergies/Adverse Reactions: Allergies Allergy/AdvReac Type Severity Reaction Status Date / Time Penicillins Allergy Mild ITCHING/KAYLEE Verified 09/06/18 07:41 H Home Medications: Ambulatory Orders Aspirin [ASA -] 81 mg PO DAILY 11/28/14 Atorvastatin Ca [Lipitor] 40 mg PO HS 11/28/14 Losartan Potassium 25 mg PO DAILY 11/28/14 Metoprolol Succinate [Toprol XL -] 25 mg PO DAILY 11/28/14 Tamsulosin HCl [Flomax -] 0.4 mg PO DAILY 11/28/14 Tiotropium [place] [Spiriva] 18 mcg IH DAILY 11/28/14 Cilostazol [Pletal] 100 mg PO BID 01/05/15 Albuterol Sulfate Inhaler - [Ventolin HFA Inhaler -] 1 - 2 inh PO Q4H 08/31/17 Cholecalciferol (Vitamin D3) [Vitamin D3] 2,000 unit PO DAILY 08/31/17 Fluticasone/Salmeterol [Advair 250-50 Diskus] 1 each IH BID 08/31/17 Folic Acid 1 mg PO DAILY 08/31/17 Furosemide [Lasix] 20 mg PO ASDIR 08/31/17 Albuterol 0.083% Nebulizer Christine [Ventolin 0.083% Nebulizer Soln -] 1 amp NEB RQID amp 09/07/17 Anemia: No Asthma: Yes Cancer: No Cardiac Disorders: Yes (CAD) CVA: No COPD: Yes CHF: No Dementia: No Diabetes: No GI Disorders: Yes (POLYPS) Disorders: Yes (BPH) HTN: Yes Hypercholesterolemia: Yes Liver Disease: No Seizures: No Thyroid Disease: No - Surgical History Abdominal Surgery: Yes (RT INGUINAL HERNIA) Appendectomy: No Cardiac Surgery: Yes (STENTING X2/AORTIC ANEURSYM REPAIR) Cholecystectomy: No Lung Surgery: No Neurologic Surgery: No Orthopedic Surgery: No - Immunization History Immunization Up to Date: Yes (flu and pneumonia) - Suicide/Smoking/Psychosocial Hx Smoking Status: Yes Smoking History: Former smoker Have you smoked in the past 12 months: No Number of Cigarettes Smoked Daily: 2 If you are a former smoker, when did you quit?: MAR 2014 Cigars Per Day: 6 Information on smoking cessation initiated: No 'Breaking Loose' booklet given: 06/17/13 Hx Alcohol Use: No Drug/Substance Use Hx: No Substance Use Type: None Hx Substance Use Treatment: No Review of Systems - Review of Systems Able to Perform ROS?: No (Respiratory Distress ) *Physical Exam - Vital Signs Last Vital Signs Temp Pulse Resp BP Pulse Ox 111 H 32 H 155/100 92 L 09/06/18 07:42 09/06/18 07:42 09/06/18 07:42 09/06/18 07:42 - Physical Exam Comments: 09/06/18 13:04 Awake, alert, 1-2 word answers to questions 2/2 to clinical presentation Respiratory: belly breathing, abdominal pulling, labored respirations CV: S1, S2, RRR Extremity: 2+ DP pulses, no lower extremity edema Abdomen: soft, non-tender, (+) bowel sounds Neuro: A&O x3, CN II-XII intact Heart Score/ECG Review - ECG Impressions Comment:: 09/06/18 09:46 NSR HR 90, normal intervals, no EMMANUEL/STD/TWI ED Treatment Course - LABORATORY CBC & Chemistry Diagram: 09/06/18 08:00 09/06/18 08:00 Medical Decision Making - Medical Decision Making 88 year old male with a PMH of BIBEMS from home with difficulty breathing. Abdominal pulling, 1-2 word answers to questions, mild accessory muscle use w/o retractions As patient RD @ presentation, respiratory called for BIPAP. Will evaluate for CHF vs. COPD exacerbation, also consider r/o ACS, PNA though the latter less likely Initial Vital Signs Pulse Resp BP Pulse Ox 111 H 32 H 155/100 92 L 09/06/18 07:42 09/06/18 07:42 09/06/18 07:42 09/06/18 07:42 09/06/18 08:38 Patient reassessed @ bedside Less accessory muscle use, VSS 09/06/18 08:53 Case d/w Dr. Wu - accepts for admission, likely telemetry given possible CHF exacerbation 09/06/18 09:00 Troponin 0.10 - less likely ACS given patient denies active CP, no ischemic changes on EKG, more likely 2/2 to underlying ischemic demand 09/06/18 09:17 Reassessed @ bedside, continues to deny CP Breathing comfortably, speaking full sentences 09/06/18 09:39 WBC 12.6 K/mm3 (4.0-10.0) H 09/06/18 08:00 RBC 4.35 M/mm3 (4.00-5.60) 09/06/18 08:00 Hgb 14.0 GM/dL (11.7-16.9) 09/06/18 08:00 Hct 43.0 % (35.4-49) 09/06/18 08:00 MCV 98.8 fl (80-96) H 09/06/18 08:00 MCH 32.3 pg (25.7-33.7) 09/06/18 08:00 MCHC 32.7 g/dl (32.0-35.9) 09/06/18 08:00 RDW 15.7 % (11.9-15.9) 09/06/18 08:00 Plt Count 119 K/MM3 (134-434) L 09/06/18 08:00 MPV 9.0 fl (7.5-11.1) 09/06/18 08:00 Absolute Neuts (auto) 9.0 K/mm3 (1.5-8.0) H 09/06/18 08:00 Neutrophils % 71.8 % (42.8-82.8) 09/06/18 08:00 Lymphocytes % 20.8 % (8-40) D 09/06/18 08:00 Monocytes % 4.8 % (3.8-10.2) 09/06/18 08:00 Eosinophils % 2.3 % (0-4.5) 09/06/18 08:00 Basophils % 0.3 % (0-2.0) 09/06/18 08:00 Nucleated RBC % 0 % (0-0) 09/06/18 08:00 Sodium 141 mmol/L (136-145) 09/06/18 08:00 Potassium 4.6 mmol/L (3.5-5.1) 09/06/18 08:00 Chloride 112 mmol/L (98-107) H 09/06/18 08:00 Carbon Dioxide 22 mmol/L (21-32) 09/06/18 08:00 Anion Gap 6 MMOL/L (8-16) L 09/06/18 08:00 BUN 38.3 mg/dL (7-18) H 09/06/18 08:00 Creatinine 1.8 mg/dL (0.55-1.3) H 09/06/18 08:00 Est GFR (CKD-EPI)AfAm 38.64 09/06/18 08:00 Est GFR (CKD-EPI)NonAf 33.34 09/06/18 08:00 Random Glucose 197 mg/dL (74-106) H 09/06/18 08:00 Calcium 8.9 mg/dL (8.5-10.1) 09/06/18 08:00 Total Bilirubin 0.8 mg/dL (0.2-1) 09/06/18 08:00 AST 22 U/L (15-37) 09/06/18 08:00 ALT 22 U/L (13-61) 09/06/18 08:00 Alkaline Phosphatase 141 U/L (45-117) H 09/06/18 08:00 Creatine Kinase 174 U/L (26-308) 09/06/18 08:00 Creatine Kinase Index 2.8 % (0.0-5.0) 09/06/18 08:00 CK-MB (CK-2) 5.0 ng/mL (0.5-3.6) H 09/06/18 08:00 Troponin I 0.10 ng/ml (0.00-0.05) H 09/06/18 08:00 B-Natriuretic Peptide 2622.2 pg/ml (5-450) H 09/06/18 08:00 Total Protein 7.5 g/dl (6.4-8.2) 09/06/18 08:00 Albumin 4.0 g/dl (3.4-5.0) 09/06/18 08:00 09/06/18 09:41 Wheezing, improved air movement Will give Lasix 20 mg IV in light of BNP 26209/06/18 10:13 Hypoxemic Respiratory Failure on ABG ABG Results ABG pH 7.34 (7.35-7.45) L 09/06/18 09:12 ABG pCO2 at Pt Temp 37.5 mmHg (35-45) 09/06/18 09:12 ABG pO2 at Pt Temp 90.6 mmHg (80-105) 09/06/18 09:12 ABG HCO3 19.9 mmol/L (22-27) L 09/06/18 09:12 ABG O2 Sat (Measured) 96.6 % (95-98) 09/06/18 09:12 ABG O2 Content 20.4 % vol (15-22) 09/06/18 09:12 ABG Base Excess -4.8 meq/l (-2-2) L 09/06/18 09:12 09/06/18 10:57 Patient reassessed @ bedside. Tachycardia, Tachypnea resolved, SpO2 90's on BIPAP Patient admitted to Dr. Wu, Inpatient Telemetry. Requests Dr. Pan pulmonology. Will evaluate patient @ bedside Clinical Impression: CHF exacerbation +/- COPD *DC/Admit/Observation/Transfer Diagnosis at time of Disposition: COPD (chronic obstructive pulmonary disease) - Discharge Dispostion Condition at time of disposition: Fair Decision to Admit order: Yes - Referrals - Patient Instructions - Post Discharge Activity
--- NOTE | 2018-09-06 08:02 | PDOC ---
Attending Attestation - Resident Resident Name: Ayla Miller - ED Attending Attestation I have performed the following: I have examined & evaluated the patient, The case was reviewed & discussed with the resident, I agree w/resident's findings & plan, Exceptions are as noted - HPI HPI: 88 yo M COPD, CHF, CAD, HL, AAA s/p repair presents with SOB, sudden onset this morning. No recent fevers, cough, illness. No known sick contacts. He called EMS , who gave him 3 nebs en route. - Physicial Exam PE: GENERAL: Awake, alert, and fully oriented. +Moderate respiratory distress HEAD: No signs of trauma EYES: PERRLA, EOMI, sclera anicteric, conjunctiva clear ENT: Auricles normal inspection, hearing grossly normal, nares patent, oropharynx clear without exudates. Moist mucosa NECK: Normal ROM, supple, no lymphadenopathy, JVD, or masses LUNGS: +Tachypnea with abdominal retractions, +exp wheezes B/L HEART: Regular rate and rhythm, normal S1 and S2, no murmurs, rubs or gallops ABDOMEN: Soft, nontender, normoactive bowel sounds. No guarding, no rebound. No masses EXTREMITIES: Normal range of motion, no edema. No clubbing or cyanosis. No cords, erythema, or tenderness NEUROLOGICAL: Cranial nerves II through XII grossly intact. Normal speech. Motor and sensation intact SKIN: Warm, Dry, normal turgor, no rashes or lesions noted. - Medical Decision Making Pt presents with abrupt onset SOB- COPD vs CHF. Exam is more consistent with COPD, as he has wheezes, no peripheral edema. Labs will include CBC, CMP, trop, BNP. CXR to r/o pna. Will give nebs and steroids. Patient is comfortable on BiPAP. Will plan for admission.
[2018-09-06 08:18] LABS: BASO % 0.3 % (0-2.0); EOS % 2.3 % (0-4.5); LYMPH % 20.8 % (8-40); MCH 32.3 pg (25.7-33.7); MCHC 32.7 g/dl (32.0-35.9); MEAN CELL VOLUME 98.8 fl (80-96); MONO % 4.8 % (3.8-10.2); NEUT % 71.8 % (42.8-82.8); RBC 4.35 M/mm3 (4.00-5.60); RDW 15.7 % (11.9-15.9); WHITE BLOOD COUNT 12.6 K/mm3 (4.0-10.0)
[2018-09-06 08:36] LABS: VENOUS PC02 56.3 mmHg (41-51); VENOUS PH 7.21 (7.31-7.41); VENOUS PO2 48.2 mmHg (30-40)
[2018-09-06 08:50] LABS: BILIRUBIN,TOTAL 0.8 mg/dL (0.2-1); BLOOD UREA NITROGEN 38.3 mg/dL (7-18); CALCIUM 8.9 mg/dL (8.5-10.1); CREATININE 1.8 mg/dL (0.55-1.3); POTASSIUM 4.6 mmol/L (3.5-5.1); TOT PROT 7.5 g/dl (6.4-8.2)
[2018-09-06 08:56] LABS: PLATELET COUNT 119 K/MM3 (134-434)
[2018-09-06] MEDS ORDERED: methylPREDNISolone NA SUCC 125 MG/2 ML VIAL IVPUSH ONE (09:00)
[2018-09-06] MEDS ORDERED: methylPREDNISolone NA SUCC 125 MG/2 ML VIAL ONE (09:05)
[2018-09-06 09:24] LABS: N-TERMINAL BNP 2622.2 pg/ml (5-450)
[2018-09-06] MEDS ORDERED: FUROSEMIDE 40 MG/4 ML INJECTABLE VIAL IVPUSH ONE (09:40)
[2018-09-06 09:55] LABS: ARTERIAL BLD GAS O2 SATURATION 96.6 % (95-98); ARTERIAL BLOOD GAS BASE EXCESS -4.8 meq/l (-2-2); ARTERIAL BLOOD GAS PCO2 37.5 mmHg (35-45); ARTERIAL BLOOD GAS PO2 90.6 mmHg (80-105); ARTERIAL BLOOD GAS pH 7.34 (7.35-7.45); CARBOXYHEMOGLOBIN 1.6 % (0-2)
[2018-09-06 09:57] LABS: ALLENS TEST POSITIVE
--- NOTE | 2018-09-06 10:13 | EKG ---
Test Reason : Blood Pressure : / mmHG Vent. Rate : 090 BPM Atrial Rate : 090 BPM P-R Int : 174 ms QRS Dur : 118 ms QT Int : 388 ms P-R-T Axes : 071 007 050 degrees QTc Int : 474 ms NORMAL SINUS RHYTHM POSSIBLE LEFT ATRIAL ENLARGEMENT ANTEROSEPTAL INFARCT , AGE UNDETERMINED ABNORMAL ECG WHEN COMPARED WITH ECG OF 01-SEP-2017 11:50, INCOMPLETE LEFT BUNDLE BRANCH BLOCK IS NO LONGER PRESENT ANTEROSEPTAL INFARCT IS NOW PRESENT Confirmed by ROSALVA BIRCH MD ([id number]) on 09/06/2018 10:12:57 AM Referred By: Confirmed By:ROSALVA BIRCH MD
--- NOTE | 2018-09-06 10:50 | CON.PULM ---
Consult Consult Specialty:: PULMONARY Referred by:: PMD Reason for Consultation:: RESP DISTRESS - History of Present Illness Chief Complaint: SOB History of Present Illness: 88 year old male with a PMH of COPD (not on home O2), CAD (s/p stent x3, no AK) , HLD, AAA (s/p repair 1997), h/o GI bleed, presents to the ED in respiratory distress. Patient was placed on bipap due to resp distress. Unable to obtain full HPI 2/ 2 bipap treatment. 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 Cardio/Vascular: Yes: Aneurysm (of Abdominal Aorta), CAD (2 stents), HTN, Hyperlipdemia Pulmonary: Yes: Asthma, COPD, Pneumonia (L lung) Gastrointestinal: Yes: Constipation, Diverticulosis, GI Bleed, Other (colon polyps) Hepatobiliary: No: Cirrhosis Renal/: Yes: BPH Heme/Onc: No: Anemia Infectious Disease: Yes: Other Psych: No: Addictions - Past Surgical History Past Surgical History: Yes: AAA Repair (apr 2004), Hernia Repair (right inguinal hernia repair (2004)) - Alcohol/Substance Use Hx Alcohol Use: No History of Substance Use: reports: None - Smoking History Smoking history: Former smoker Have you smoked in the past 12 months: No Aproximately how many cigarettes per day: 2 If you are a former smoker, when did you quit?: MAR 2014 - Social History Usual Living Arrangement: With Spouse ADL: Independent Occupation: retired- worked for city Place of : Other History of Recent Travel: No Home Medications - Allergies Allergies/Adverse Reactions: Allergies Allergy/AdvReac Type Severity Reaction Status Date / Time Penicillins Allergy Mild ITCHING/KAYLEE Verified 09/06/18 07:41 H - Home Medications Home Medications: Ambulatory Orders Aspirin [ASA -] 81 mg PO DAILY 11/28/14 Atorvastatin Ca [Lipitor] 40 mg PO HS 11/28/14 Losartan Potassium 25 mg PO DAILY 11/28/14 Metoprolol Succinate [Toprol XL -] 25 mg PO DAILY 11/28/14 Tamsulosin HCl [Flomax -] 0.4 mg PO DAILY 11/28/14 Tiotropium [place] [Spiriva] 18 mcg IH DAILY 11/28/14 Cilostazol [Pletal] 100 mg PO BID 01/05/15 Albuterol Sulfate Inhaler - [Ventolin HFA Inhaler -] 1 - 2 inh PO Q4H 08/31/17 Cholecalciferol (Vitamin D3) [Vitamin D3] 2,000 unit PO DAILY 08/31/17 Fluticasone/Salmeterol [Advair 250-50 Diskus] 1 each IH BID 08/31/17 Folic Acid 1 mg PO DAILY 08/31/17 Furosemide [Lasix] 20 mg PO ASDIR 08/31/17 Albuterol 0.083% Nebulizer Christine [Ventolin 0.083% Nebulizer Soln -] 1 amp NEB RQID amp 09/07/17 Cefuroxime Axetil [Ceftin -] 250 mg PO BID #7 tablet MDD 2 09/07/17 Clopidogrel Bisulfate [Plavix -] 75 mg PO DAILY #30 tablet MDD 1 09/07/17 Guaifenesin/D-Methorphan Hb [Diabetic Tussin Dm -] 10 ml PO Q6H ml 09/07/17 Nicotine Patch [Nicoderm Patch -] 14 mg TD DAILY #30 patch MDD 1 09/07/17 Polyethylene Glycol 3350 [Miralax 119 gm Btl -] 17 gm PO DAILY bottle 09/07/17 Prednisone See Taper PO DAILY #24 tablet 09/07/17 Ranitidine [Zantac -] 150 mg PO DAILY 14 Days #14 tablet MDD 1 09/07/17 Sennosides [Senna -] 2 tab PO HS tablet 09/07/17 Polyethylene Glycol 3350 [Miralax (For Daily Use) -] 17 gm PO DAILY #1 bottle Family Disease History - Family Disease History Family History: Unable to Obtain Review of Systems - Review of Systems Constitutional: denies: Fever Neck: denies: Decreased ROM Cardiovascular: reports: Shortness of Breath. denies: Chest Pain Respiratory: reports: Cough, Exercise Intolerance, SOB, SOB on Exertion, Wheezing. denies: Hemoptysis Gastrointestinal: denies: Abdominal Pain Genitourinary: denies: Burning Physical Exam Vital Sings: Vital Signs Temperature 97.1 F L 09/06/18 08:22 Pulse Rate 86 09/06/18 09:14 Respiratory Rate 21 H 09/06/18 09:14 Blood Pressure 127/67 09/06/18 09:14 O2 Sat by Pulse Oximetry (%) 98 09/06/18 10:23 Constitutional: Yes: Calm Eyes: Yes: EOM Intact HENT: Yes: Normocephalic Neck: Yes: Trachea Midline Cardiovascular: Yes: Regular Rate and Rhythm, S1, S2 Respiratory: Yes: Diminished Gastrointestinal: Yes: Normal Bowel Sounds, Soft Extremities: Yes: WNL Edema: No Integumentary: Yes: WNL Neurological: Yes: Alert Labs: CBC, BMP 09/06/18 08:00 09/06/18 08:00 ABG Results ABG pH 7.34 (7.35-7.45) L 09/06/18 09:12 ABG pCO2 at Pt Temp 37.5 mmHg (35-45) 09/06/18 09:12 ABG pO2 at Pt Temp 90.6 mmHg (80-105) 09/06/18 09:12 ABG HCO3 19.9 mmol/L (22-27) L 09/06/18 09:12 ABG O2 Sat (Measured) 96.6 % (95-98) 09/06/18 09:12 ABG O2 Content 20.4 % vol (15-22) 09/06/18 09:12 ABG Base Excess -4.8 meq/l (-2-2) L 09/06/18 09:12 Imaging - Results Chest X-ray: Report Reviewed, Image Reviewed EKG: Report Reviewed, Image Reviewed Problem List - Problems (1) Abdominal aortic aneurysm Code(s): I71.4 - ABDOMINAL AORTIC ANEURYSM, WITHOUT RUPTURE (2) Acute exacerbation of chronic obstructive pulmonary disease (COPD) Code(s): J44.1 - CHRONIC OBSTRUCTIVE PULMONARY DISEASE W (ACUTE) EXACERBATION (3) Acute on chronic combined systolic and diastolic CHF (congestive heart failure) Code(s): I50.43 - ACUTE ON CHRONIC COMBINED SYSTOLIC AND DIASTOLIC HRT FAIL (4) BPH (benign prostatic hyperplasia) Code(s): N40.0 - BENIGN PROSTATIC HYPERPLASIA WITHOUT LOWER URINRY TRACT SYMP (5) CAD (coronary artery disease) Code(s): I25.10 - ATHSCL HEART DISEASE OF [place] CORONARY ARTERY W/O ANG PCTRS Qualifiers: (6) Dyspnea Code(s): R06.00 - DYSPNEA, UNSPECIFIED (7) History of abdominal aortic aneurysm (AAA) repair Code(s): Z98.890 - OTHER SPECIFIED POSTPROCEDURAL STATES (8) Hyperlipidemia Code(s): E78.5 - HYPERLIPIDEMIA, UNSPECIFIED (9) Hypertension Code(s): I10 - ESSENTIAL (PRIMARY) HYPERTENSION (10) Hypoxemia Code(s): R09.02 - HYPOXEMIA (11) Hypoxemia requiring supplemental oxygen Code(s): R09.02 - HYPOXEMIA; Z99.81 - DEPENDENCE ON SUPPLEMENTAL OXYGEN (12) Scoliosis (and kyphoscoliosis), idiopathic Code(s): M41.20 - OTHER IDIOPATHIC SCOLIOSIS, SITE UNSPECIFIED Assessment/Plan A/E COPD WITH ACUTE HYPOXEMIC RESP FAILURE ACUTE ON CHRONIC CHF ELEVATED TROP LIKLEY DEMAND HTN/ASHD/PCI STENTS/AAA REPAIR SUPPLEMENTAL O2/BIPAP NEEDED TRIAL OF STEROIDS/BRONCHODILATORS/ANTIBIOTICS CONTINUE DIURETICS/CONSIDER CARDIOLOGY EVAL/CYCLE TROPS/DVT PROPHYLAXSIS ADMIT TO TELE WILL FOLLOW Yue OH MD
[2018-09-06] MEDS ORDERED: FUROSEMIDE 40 MG/4 ML INJECTABLE VIAL ONE (10:56)
--- NOTE | 2018-09-06 11:37 | HP ---
Admitting History and Physical - Primary Care Physician PCP: Virginia Wu S - Admission Chief Complaint: SOB History of Present Illness: 88 yo M COPD, CHF, CAD, HL, AAA s/p repair presents with SOB, sudden onset this morning. No recent fevers, cough, illness. No known sick contacts. He called EMS , who gave him 3 nebs en route. 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 Cardiovascular: Yes: Aneurysm (of Abdominal Aorta), CAD (2 stents), HTN, Hyperlipdemia Pulmonary: Yes: Asthma, COPD, Pneumonia (L lung) Gastrointestinal: Yes: Constipation, Diverticulosis, GI Bleed, Other (colon polyps) Hepatobiliary: No: Cirrhosis Renal/: Yes: BPH Heme/Onc: No: Anemia Infectious Disease: Yes: Other Psych: No: Addictions - Past Surgical History Past Surgical History: Yes: AAA Repair (apr 2004), Hernia Repair (right inguinal hernia repair (2004)) - Smoking History Smoking history: Former smoker Have you smoked in the past 12 months: No Aproximately how many cigarettes per day: 2 If you are a former smoker, when did you quit?: MAR 2014 - Alcohol/Substance Use Hx Alcohol Use: No History of Substance Use: reports: None - Social History Usual Living Arrangement: Yes: With Spouse ADL: Independent Occupation: retired- worked for city History of Recent Travel: No Home Medications - Allergies Allergies/Adverse Reactions: Allergies Allergy/AdvReac Type Severity Reaction Status Date / Time Penicillins Allergy Mild ITCHING/KAYLEE Verified 09/06/18 07:41 H - Home Medications Home Medications: Ambulatory Orders Aspirin [ASA -] 81 mg PO DAILY 11/28/14 Atorvastatin Ca [Lipitor] 40 mg PO HS 11/28/14 Losartan Potassium 25 mg PO DAILY 11/28/14 Metoprolol Succinate [Toprol XL -] 25 mg PO DAILY 11/28/14 Tamsulosin HCl [Flomax -] 0.4 mg PO DAILY 11/28/14 Tiotropium [place] [Spiriva] 18 mcg IH DAILY 11/28/14 Cilostazol [Pletal] 100 mg PO BID 01/05/15 Albuterol Sulfate Inhaler - [Ventolin HFA Inhaler -] 1 - 2 inh PO Q4H 08/31/17 Cholecalciferol (Vitamin D3) [Vitamin D3] 2,000 unit PO DAILY 08/31/17 Fluticasone/Salmeterol [Advair 250-50 Diskus] 1 each IH BID 08/31/17 Folic Acid 1 mg PO DAILY 08/31/17 Furosemide [Lasix] 20 mg PO ASDIR 08/31/17 Albuterol 0.083% Nebulizer Christine [Ventolin 0.083% Nebulizer Soln -] 1 amp NEB RQID amp 09/07/17 Family Disease History - Family Disease History Family History: Unremarkable Review of Systems - Review of Systems Constitutional: reports: Loss of Appetite, Weakness (general). denies: Chills, Fever, Lethargy Eyes: denies: Blurred Vision, Double Vision HENT: denies: Epistaxis Neck: denies: Stiffness, Tenderness Cardiovascular: reports: Shortness of Breath. denies: Chest Pain Respiratory: reports: Cough, SOB, SOB on Exertion. denies: Hemoptysis, Orthopnea Gastrointestinal: denies: Abdominal Pain, Constipation, Diarrhea, Vomiting Genitourinary: denies: Dysuria, Flank Pain Musculoskeletal: denies: Back Pain, Joint Swelling Integumentary: denies: Eczema, Rash, Wound Neurological: reports: Weakness (general). denies: Change in LOC, Change in Speech, Confusion Endocrine: denies: Excessive Sweating Hematology/Lymphatic: denies: Easily Bruised, Excessive Bleeding, Swollen Glands Psychiatric: denies: Altered Sleep Pattern, Anxiety, Depression Physical Examination Vital Signs: Vital Signs Temperature 97.1 F L 09/06/18 08:22 Pulse Rate 86 09/06/18 09:14 Respiratory Rate 21 H 09/06/18 09:14 Blood Pressure 127/67 09/06/18 09:14 O2 Sat by Pulse Oximetry (%) 98 09/06/18 10:23 Constitutional: Yes: No Distress, Calm Eyes: Yes: Conjunctiva Clear HENT: Yes: Atraumatic Neck: Yes: Supple Cardiovascular: Yes: Regular Rate and Rhythm Respiratory: Yes: Rales, Rhonchi Integumentary: No: Rash, Venous Stasis Changes Neurological: Yes: WNL, Alert, Oriented ...Motor Strength: WNL Psychiatric: Yes: WNL, Alert, Oriented. No: Agitated, Suicidal Ideation Labs: CBC, BMP 09/06/18 08:00 09/06/18 08:00 Imaging - Results Chest X-ray: Report Reviewed Other: Report Reviewed Assessment/Plan 88 yo M COPD, CHF, CAD, HL, AAA s/p repair presents with SOB, sudden onset this morning. Treated with nebs, iv steroids, BIPAP support - improved, switched to nNC O2 positive troponins, received IV lasix in ER admit to telemetry CEX3 cardiology eval continue previous meds statins, ASA DVT pfx falls pfx prognosis guarded d/w pt and staff
[2018-09-06] MEDS: methylPREDNISolone NA SUCC 40 MG/1 ML VIAL IVPUSH SCH ×2 (15:22→22:01)
[2018-09-06] MEDS ORDERED: methylPREDNISolone NA SUCC 40 MG/1 ML VIAL ONE (15:23)
[2018-09-06] MEDS: ALBUTEROL SO4 0.083% IH SOL 2.5 MG/3 ML VIAL.NEB. NEB PRN (17:44)
[2018-09-06] MEDS ORDERED: ALBUTEROL SO4 8 GM HFA INHALER IH PRN (18:04)
[2018-09-06 18:07] VITALS: BMI 23.8
[2018-09-06] MEDS: ALBUTEROL SO4 0.083% IH SOL 2.5 MG/3 ML VIAL.NEB. NEB SCH (20:40)
[2018-09-06] MEDS ORDERED: HEPARIN NA (PORCINE) 5,000 UNITS/ML 1ML VIAL SQ SCH (22:00)
[2018-09-06] MEDS: INSULIN SLIDING SCALE (NOVOLOG) 1 VIAL SQ SCH (22:01)
[2018-09-06] MEDS: ATORVASTATIN CA 40 MG TABLET (FP) PO SCH (22:01)
[2018-09-06] MEDS: BUDESONIDE/FORMETEROL FUMARATE 80/4.5 mcg INHALER IH SCH (22:07)
[2018-09-06] MEDS: CILOSTAZOL 100 MG TABLET PO SCH (22:07)
[2018-09-07] MEDS: methylPREDNISolone NA SUCC 40 MG/1 ML VIAL IVPUSH SCH ×3 (03:11→17:09)
[2018-09-07] MEDS: ALBUTEROL SO4 0.083% IH SOL 2.5 MG/3 ML VIAL.NEB. NEB PRN (03:38)
[2018-09-07 06:16] LABS: HEMATOCRIT 37.2 % (35.4-49); HEMOGLOBIN 12.3 GM/dL (11.7-16.9); LYMPH % 5.9 % (8-40); MCH 32.6 pg (25.7-33.7); MCHC 33.1 g/dl (32.0-35.9); MEAN CELL VOLUME 98.2 fl (80-96); MEAN PLT VOLUME 9.4 fl (7.5-11.1); MONO % 1.1 % (3.8-10.2); PLATELET COUNT 103 K/MM3 (134-434); RBC 3.79 M/mm3 (4.00-5.60); RDW 15.3 % (11.9-15.9); WHITE BLOOD COUNT 6.3 K/mm3 (4.0-10.0)
[2018-09-07] MEDS: INSULIN SLIDING SCALE (NOVOLOG) 1 VIAL SQ SCH ×4 (06:21→21:26)
[2018-09-07 06:50] LABS: ALBUMIN 3.5 g/dl (3.4-5.0); BILIRUBIN,TOTAL 0.7 mg/dL (0.2-1); BLOOD UREA NITROGEN 46.9 mg/dL (7-18); CALCIUM 8.7 mg/dL (8.5-10.1); CREATININE 1.9 mg/dL (0.55-1.3); POTASSIUM 4.7 mmol/L (3.5-5.1); TOT PROT 6.8 g/dl (6.4-8.2)
[2018-09-07] MEDS: ALBUTEROL SO4 0.083% IH SOL 2.5 MG/3 ML VIAL.NEB. NEB SCH ×4 (07:34→20:30)
[2018-09-07] MEDS ORDERED: CLOPIDOGREL BISULFATE 300 MG TABLET PO ONE (07:58)
--- NOTE | 2018-09-07 07:58 | CON.CARD ---
Consult Consult Specialty:: Cardiology Reason for Consultation:: non stemi - History of Present Illness History of Present Illness: 88 yo M COPD, CHF, CAD, HL, AAA s/p repair presents with SOB, sudden onset this morning. No recent fevers, cough, illness. No known sick contacts. He called EMS , who gave him 3 nebs en route. 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: Alzheimer's Cardiovascular: Yes: Aneurysm (of Abdominal Aorta), CAD (2 stents), HTN, Hyperlipdemia Pulmonary: Yes: Asthma, COPD, Pneumonia (L lung) Gastrointestinal: Yes: Constipation, Diverticulosis, GI Bleed, Other (colon polyps) Hepatobiliary: No: Cirrhosis Renal/: Yes: BPH Heme/Onc: No: Anemia Infectious Disease: Yes: Other Psych: No: Addictions - History Source History Provided By: Patient, Medical Record - Past Medical History HEAD OF GLOBAL STRATEGIC PARTNERSHIPS: No: Alzheimer's Cardio/Vascular: Yes: Aneurysm (of Abdominal Aorta), CAD (2 stents), HTN, Hyperlipdemia Pulmonary: Yes: Asthma, COPD, Pneumonia (L lung) Gastrointestinal: Yes: Constipation, Diverticulosis, GI Bleed, Other (colon polyps) Hepatobiliary: No: Cirrhosis Renal/: Yes: BPH Infectious Disease: Yes: Other Psych: No: Addictions - Past Surgical History Past Surgical History: Yes: AAA Repair (apr 2004), Hernia Repair (right inguinal hernia repair (2004)) - Alcohol/Substance Use Hx Alcohol Use: No History of Substance Use: reports: None - Smoking History Smoking history: Former smoker Have you smoked in the past 12 months: No Aproximately how many cigarettes per day: 2 If you are a former smoker, when did you quit?: MAR 2014 - Social History Usual Living Arrangement: With Spouse ADL: Independent Occupation: retired- worked for city History of Recent Travel: No Home Medications - Allergies Allergies/Adverse Reactions: Allergies Allergy/AdvReac Type Severity Reaction Status Date / Time Penicillins Allergy Mild ITCHING/KAYLEE Verified 09/06/18 07:41 H - Home Medications Home Medications: Ambulatory Orders Aspirin [ASA -] 81 mg PO DAILY 11/28/14 Atorvastatin Ca [Lipitor] 40 mg PO HS 11/28/14 Losartan Potassium 25 mg PO DAILY 11/28/14 Metoprolol Succinate [Toprol XL -] 25 mg PO DAILY 11/28/14 Tamsulosin HCl [Flomax -] 0.4 mg PO DAILY 11/28/14 Tiotropium [place] [Spiriva] 18 mcg IH DAILY 11/28/14 Cilostazol [Pletal] 100 mg PO BID 01/05/15 Albuterol Sulfate Inhaler - [Ventolin HFA Inhaler -] 1 - 2 inh PO Q4H 08/31/17 Cholecalciferol (Vitamin D3) [Vitamin D3] 2,000 unit PO DAILY 08/31/17 Fluticasone/Salmeterol [Advair 250-50 Diskus] 1 each IH BID 08/31/17 Folic Acid 1 mg PO DAILY 08/31/17 Furosemide [Lasix] 20 mg PO ASDIR 08/31/17 Albuterol 0.083% Nebulizer [place] [Ventolin 0.083% Nebulizer Soln -] 1 amp NEB RQID amp 09/07/17 Review of Systems - Review of Systems Constitutional: reports: No Symptoms Eyes: reports: No Symptoms HENT: reports: No Symptoms Neck: reports: No Symptoms Cardiovascular: reports: Shortness of Breath Respiratory: reports: SOB Gastrointestinal: reports: No Symptoms Genitourinary: reports: No Symptoms Breasts: reports: No Symptoms Reported Musculoskeletal: reports: No Symptoms Integumentary: reports: No Symptoms Neurological: reports: No Symptoms Endocrine: reports: No Symptoms Hematology/Lymphatic: reports: No Symptoms Psychiatric: reports: No Symptoms Vital Signs: Vital Signs Temperature 97.9 F 09/07/18 01:24 Pulse Rate 80 09/07/18 06:00 Respiratory Rate 20 09/07/18 06:00 Blood Pressure 144/78 09/07/18 06:00 O2 Sat by Pulse Oximetry (%) 98 09/07/18 07:33 Constitutional: Yes: Well Nourished, No Distress, Calm Eyes: Yes: WNL, Conjunctiva Clear, EOM Intact HENT: Yes: WNL, Atraumatic, Normocephalic Neck: Yes: WNL, Supple, Trachea Midline Respiratory: Yes: WNL, Regular, CTA Bilaterally, Rales, SOB, SOB on Exertion Gastrointestinal: Yes: WNL, Normal Bowel Sounds Renal/: Yes: WNL Cardiovascular: Yes: WNL, Regular Rate and Rhythm Musculoskeletal: Yes: WNL Extremities: Yes: WNL Integumentary: Yes: WNL Neurological: Yes: WNL, Alert, Oriented ...Motor Strength: WNL Psychiatric: Yes: WNL, Alert, Oriented - Other Data Labs, Other Data: CBC, BMP 09/07/18 05:20 09/07/18 05:20 Troponin, BNP 09/06/18 09/07/18 09/07/18 08:00 05:20 05:20 Troponin I 0.10 H 3.84 H* B-Natriuretic Peptide 2622.2 H 89234.9 H Troponin, BNP 09/06/18 09/07/18 09/07/18 08:00 05:20 05:20 Troponin I 0.10 H 3.84 H* B-Natriuretic Peptide 2622.2 H 75929.9 H Imaging - Results Chest X-ray: Image Reviewed (chf) EKG: Image Reviewed (sr old ant septal mi) Problem List - Problems (1) COPD (chronic obstructive pulmonary disease) Code(s): J44.9 - CHRONIC OBSTRUCTIVE PULMONARY DISEASE, UNSPECIFIED (2) Abdominal aortic aneurysm Code(s): I71.4 - ABDOMINAL AORTIC ANEURYSM, WITHOUT RUPTURE (3) Acute constipation Code(s): K59.00 - CONSTIPATION, UNSPECIFIED (4) Acute exacerbation of chronic obstructive pulmonary disease (COPD) Code(s): J44.1 - CHRONIC OBSTRUCTIVE PULMONARY DISEASE W (ACUTE) EXACERBATION (5) Acute on chronic combined systolic and diastolic CHF (congestive heart failure) Code(s): I50.43 - ACUTE ON CHRONIC COMBINED SYSTOLIC AND DIASTOLIC HRT FAIL (6) [id number] kidney injury Code(s): N17.9 - ACUTE KIDNEY FAILURE, UNSPECIFIED; N18.9 - CHRONIC KIDNEY DISEASE, UNSPECIFIED (7) BPH (benign prostatic hyperplasia) Code(s): N40.0 - BENIGN PROSTATIC HYPERPLASIA WITHOUT LOWER URINRY TRACT SYMP (8) Back pain Code(s): M54.9 - DORSALGIA, UNSPECIFIED Qualifiers: Back pain location: thoracic back pain Chronicity: acute Back pain laterality: unspecified Qualified Code(s): M54.6 - Pain in thoracic spine (9) Back pain due to injury Code(s): S39.92XA - UNSPECIFIED INJURY OF LOWER BACK, INITIAL ENCOUNTER (10) CAD (coronary artery disease) Code(s): I25.10 - ATHSCL HEART DISEASE OF [place] CORONARY ARTERY W/O ANG PCTRS Qualifiers: (11) COPD (chronic obstructive pulmonary disease) Code(s): J44.9 - CHRONIC OBSTRUCTIVE PULMONARY DISEASE, UNSPECIFIED Qualifiers: COPD type: unspecified COPD Qualified Code(s): J44.9 - Chronic obstructive pulmonary disease, unspecified (12) COPD exacerbation Code(s): J44.1 - CHRONIC OBSTRUCTIVE PULMONARY DISEASE W (ACUTE) EXACERBATION (13) CRF (chronic renal failure) Code(s): N18.9 - CHRONIC KIDNEY DISEASE, UNSPECIFIED (14) Chest pain Code(s): R07.9 - CHEST PAIN, UNSPECIFIED Qualifiers: Chest pain type: intercostal pain Qualified Code(s): R07.82 - Intercostal pain (15) Chest pain Code(s): R07.9 - CHEST PAIN, UNSPECIFIED (16) Chronic kidney disease Code(s): N18.9 - CHRONIC KIDNEY DISEASE, UNSPECIFIED Qualifiers: Chronic kidney disease stage: unspecified stage Qualified Code(s): N18.9 - Chronic kidney disease, unspecified (17) Constipation Code(s): K59.00 - CONSTIPATION, UNSPECIFIED Qualifiers: Constipation type: unspecified constipation type Qualified Code(s): K59.00 - Constipation, unspecified (18) Cough Code(s): R05 - COUGH (19) Diastolic dysfunction without heart failure Code(s): I51.9 - HEART DISEASE, UNSPECIFIED (20) Dyspnea Code(s): R06.00 - DYSPNEA, UNSPECIFIED (21) Elevated fasting blood sugar Code(s): R73.01 - IMPAIRED FASTING GLUCOSE (22) Elevated troponin Code(s): R74.8 - ABNORMAL LEVELS OF OTHER SERUM ENZYMES (23) Enlarged prostate with lower urinary tract symptoms (LUTS) Code(s): N40.1 - BENIGN PROSTATIC HYPERPLASIA WITH LOWER URINARY TRACT SYMP (24) History of abdominal aortic aneurysm (AAA) repair Code(s): Z98.890 - OTHER SPECIFIED POSTPROCEDURAL STATES (25) Hyperglycemia Code(s): R73.9 - HYPERGLYCEMIA, UNSPECIFIED (26) Hyperkalemia Code(s): E87.5 - HYPERKALEMIA (27) Hyperlipidemia Code(s): E78.5 - HYPERLIPIDEMIA, UNSPECIFIED (28) Hypernatremia Code(s): E87.0 - HYPEROSMOLALITY AND HYPERNATREMIA (29) Hypertension Code(s): I10 - ESSENTIAL (PRIMARY) HYPERTENSION (30) Hypoxemia Code(s): R09.02 - HYPOXEMIA (31) Hypoxemia requiring supplemental oxygen Code(s): R09.02 - HYPOXEMIA; Z99.81 - DEPENDENCE ON SUPPLEMENTAL OXYGEN (32) Hypoxia Code(s): R09.02 - HYPOXEMIA (33) Left lumbar pain Code(s): M54.5 - LOW BACK PAIN (34) Leukocytosis Code(s): D72.829 - ELEVATED WHITE BLOOD CELL COUNT, UNSPECIFIED (35) Peripheral artery disease Code(s): I73.9 - PERIPHERAL VASCULAR DISEASE, UNSPECIFIED (36) Pneumonia Code(s): J18.9 - PNEUMONIA, UNSPECIFIED ORGANISM Qualifiers: Pneumonia type: due to unspecified organism Laterality: left Lung location: lower lobe of lung Qualified Code(s): J18.1 - Lobar pneumonia, unspecified organism (37) Renal cyst Code(s): N28.1 - CYST OF KIDNEY, ACQUIRED (38) Renal dysfunction Code(s): N28.9 - DISORDER OF KIDNEY AND URETER, UNSPECIFIED (39) Respiratory distress Code(s): R06.00 - DYSPNEA, UNSPECIFIED (40) Scoliosis (and kyphoscoliosis), idiopathic Code(s): M41.20 - OTHER IDIOPATHIC SCOLIOSIS, SITE UNSPECIFIED (41) Sepsis Code(s): A41.9 - SEPSIS, UNSPECIFIED ORGANISM Qualifiers: Sepsis type: sepsis due to unspecified organism Qualified Code(s): A41.9 - Sepsis, unspecified organism (42) Shortness of breath Code(s): R06.02 - SHORTNESS OF BREATH (43) Shoulder contusion Code(s): S40.019A - CONTUSION OF UNSPECIFIED SHOULDER, INITIAL ENCOUNTER (44) Status post coronary artery stent placement Code(s): Z95.5 - PRESENCE OF CORONARY ANGIOPLASTY IMPLANT AND GRAFT (45) Status post femoral-popliteal bypass surgery Code(s): Z95.828 - PRESENCE OF OTHER VASCULAR IMPLANTS AND GRAFTS (46) Weight loss, intentional Code(s): [id number] - Assessment/Plan COPD, CHF, CAD, HL, AAA s/p repair presents with SOB, first tni neg second turned positive this am chf decompensated/nonstemi no cp Prior admission ; ECHO: borderline reduced LVEF, with regional wall motion abnormalities (anteroseptal); mild ; mild TR and MR; mild-moderate AR; mild LAE. MIBI st ant wall scar old mi moderate to large sized moderate intensity mid-distal IW perfusion defect with partial improvement at rest c/w ischemia. Discussed case with patient private banjo repair person Dandre Werner. patient stress test is unchanged from before. Patient had c.cath 2015 and his diffuse disease was non amendable for PCI. CABG was offered and he declined. I have offered patient CABG he declined again and preffers medical RX. He understands risks of /CT. Plan ekg pplavix loading iv heparin IV Lasix cont asa bb lasix d/w dr. Dandre Ahmadi PA Patient to be transfered to [facility] for c. cath ?PCI
[2018-09-07] MEDS ORDERED: HEPARIN NA (PORCINE) 5,000 UNITS/ML 1ML VIAL IVPUSH PRN ×3 (07:59→08:00)
[2018-09-07] MEDS ORDERED: HEPARIN INFUSION - 25,000 UNITS/500 ML INFUS.BAG IVPB SCH (08:00)
--- NOTE | 2018-09-07 09:02 | PN ---
Progress Note, Physician Chief Complaint: in bed NAD feels al little better less SOB, CXR less CHF but Troponin higher and BNP higher; seen by cardiology, d/w dr Wallace - pt will be transferred today to [facility] to dr Werner (pt's battery filler) for further management of his ACSd d/w pt - he agreed; his PCP is in [place] but he is away in vacation currently (per pt) - Current Medication List Current Medications: Active Medications Albuterol Sulfate (Ventolin 0.083% Nebulizer Soln -) 1 amp NEB Q4H PRN PRN Reason: SHORT OF BREATH/WHEEZING Last Admin: 09/07/18 03:38 Dose: 1 amp Albuterol Sulfate (Ventolin 0.083% Nebulizer Soln -) 1 amp NEB RQID YANI Last Admin: 09/07/18 07:34 Dose: 1 amp Albuterol Sulfate (Ventolin Hfa Inhaler -) 2 puff IH Q4H PRN PRN Reason: WHEEZING Aspirin (Asa -) 81 mg PO DAILY [facility] Atorvastatin Calcium (Lipitor -) 40 mg PO HS [facility] Last Admin: 09/06/18 22:01 Dose: 40 mg Budesonide/Formoterol Fumarate (Symbicort 80/4.5mcg -) 2 puff IH BID [facility] Last Admin: 09/06/18 22:07 Dose: 2 puff Cholecalciferol (Vitamin D3 -) 2,000 unit PO DAILY [facility] Cilostazol (Pletal -) 100 mg PO BID [facility] Last Admin: 09/06/18 22:07 Dose: 100 mg Folic Acid (Folic Acid -) 1 mg PO DAILY [facility] Furosemide (Lasix Injection -) 40 mg IVPUSH DAILY [facility] Heparin Sodium (Porcine) (Heparin -) 5,000 unit IVPUSH PRN PRN PRN Reason: Heparin Heparin Sodium (Porcine) (Heparin -) 1,000 unit IVPUSH PRN PRN PRN Reason: Heparin Heparin Sodium/Dextrose (Heparin Infusion -) 25,000 units in 500 mls @ 16 mls/ hr IVPB TITR [facility]ANI; Protocol Insulin Aspart (Novolog Vial Sliding Scale -) 1 vial SQ ACHS [facility]; Protocol Last Admin: 09/07/18 06:21 Dose: 4 units Losartan Potassium (Cozaar -) 25 mg PO DAILY [facility] Methylprednisolone Sodium Succinate (Solu-Medrol -) 40 mg IVPUSH Q6H-IV [facility] Last Admin: 09/07/18 03:11 Dose: 40 mg Metoprolol Succinate (Toprol Xl -) 25 mg PO DAILY [facility] Tamsulosin HCl (Flomax -) 0.4 mg PO DAILY [facility] Tiotropium [place] (Spiriva Respimat) 2 puff IH DAILY [facility] - Objective Vital Signs: Vital Signs Temperature 97.9 F 09/07/18 01:24 Pulse Rate 80 09/07/18 06:00 Respiratory Rate 20 09/07/18 06:00 Blood Pressure 144/78 09/07/18 06:00 O2 Sat by Pulse Oximetry (%) 98 09/07/18 07:33 Constitutional: Yes: No Distress, Calm Eyes: Yes: Conjunctiva Clear HENT: Yes: Atraumatic Neck: Yes: Supple Cardiovascular: Yes: Regular Rate and Rhythm Respiratory: Yes: CTA Bilaterally Gastrointestinal: Yes: Soft. No: Tenderness Genitourinary: No: CVA Tenderness - Left, CVA Tenderness - Right Musculoskeletal: No: Joint Stiffness, Joint Swelling Extremities: No: Cold, Cool, Cyanosis Edema: No Integumentary: No: Rash, Venous Stasis Changes Neurological: Yes: WNL, Alert, Oriented ...Motor Strength: WNL Psychiatric: Yes: WNL, Alert, Oriented. No: Agitated, Suicidal Ideation Labs: CBC, BMP 09/07/18 05:20 09/07/18 05:20 - ....Imaging Other: Report Reviewed Assessment/Plan 88 yo M COPD, CHF, CAD, HL, AAA s/p repair presents with SOB, sudden onset this morning. Treated with nebs, iv steroids, BIPAP support - improved, switched to NC O2 positive troponins, trending up; po ASA, plavix, iv heparin; lasix, beta blockers; statins; pt to be transferred to [facility] for possible cardiac cath and further management of ACSd seen by renal (creat 1.9) started on acetylcysteine DVT pfx falls pfx prognosis guarded d/w pt and staff
[2018-09-07] MEDS ORDERED: PT OWN MED DRAWER 7, Y5N ONE ×4 (09:29→21:12)
[2018-09-07] MEDS: CILOSTAZOL 100 MG TABLET PO SCH ×2 (09:45→21:14)
[2018-09-07] MEDS: BUDESONIDE/FORMETEROL FUMARATE 80/4.5 mcg INHALER IH SCH ×2 (09:46→21:16)
--- NOTE | 2018-09-07 09:46 | PN ---
Progress Note (short form) - Note Progress Note: PULMONARY SUBJECTIVE IMPROVEMENT NO LONGER REQUIRING BIPAP DENIES CHEST PAIN VSS/AFEBRILE ANICTERIC DIMINISHED BREATH SOUNDS AT BASES S1S2 SINUS BS+ NO EDEMA CXR/LABS/MEDS/NOTES REVIEWED EKG HAS ANTERIOR WALL CHANGES FROM 2018/NO ACUTE ST/ELEVATIONS TNI NOW MARKEDLY POSITIVE NONSTEMI/CHF/LIKELY DISTANT AWMI ACUTE HYPOXEMIC RESP FAILURE ACUTE ON CHRONIC CHF COPD/HTN/ASHD/PCI STENTS/AAA REPAIR TAPER STEROIDS/CONTINUE SUPPLEMENTAL O2/BRONCHODILATORS/DIURETICS/NIPPV NEEDED CARDIO F/U IV HEPARIN/BETA ZOILA TOLERATED [place] MD Problem List - Problems (1) Abdominal aortic aneurysm Code(s): I71.4 - ABDOMINAL AORTIC ANEURYSM, WITHOUT RUPTURE (2) Acute exacerbation of chronic obstructive pulmonary disease (COPD) Code(s): J44.1 - CHRONIC OBSTRUCTIVE PULMONARY DISEASE W (ACUTE) EXACERBATION (3) Acute on chronic combined systolic and diastolic CHF (congestive heart failure) Code(s): I50.43 - ACUTE ON CHRONIC COMBINED SYSTOLIC AND DIASTOLIC HRT FAIL (4) BPH (benign prostatic hyperplasia) Code(s): N40.0 - BENIGN PROSTATIC HYPERPLASIA WITHOUT LOWER URINRY TRACT SYMP (5) CAD (coronary artery disease) Code(s): I25.10 - ATHSCL HEART DISEASE OF [place] CORONARY ARTERY W/O ANG PCTRS Qualifiers: (6) Dyspnea Code(s): R06.00 - DYSPNEA, UNSPECIFIED (7) History of abdominal aortic aneurysm (AAA) repair Code(s): Z98.890 - OTHER SPECIFIED POSTPROCEDURAL STATES (8) Hyperlipidemia Code(s): E78.5 - HYPERLIPIDEMIA, UNSPECIFIED (9) Hypertension Code(s): I10 - ESSENTIAL (PRIMARY) HYPERTENSION (10) Hypoxemia Code(s): R09.02 - HYPOXEMIA (11) Hypoxemia requiring supplemental oxygen Code(s): R09.02 - HYPOXEMIA; Z99.81 - DEPENDENCE ON SUPPLEMENTAL OXYGEN (12) Scoliosis (and kyphoscoliosis), idiopathic Code(s): M41.20 - OTHER IDIOPATHIC SCOLIOSIS, SITE UNSPECIFIED
[2018-09-07 09:53] LABS: ANISOCYTOSIS 1+; MACROCYTOSIS 0; OVALOCYTE 1+; PLATELET ESTIMATE DECREASED
[2018-09-07] MEDS ORDERED: TAMSULOSIN HCL 0.4 MG CAP PO SCH (10:00)
[2018-09-07] MEDS ORDERED: LOSARTAN POTASSIUM 25 MG TABLET PO SCH (10:00)
[2018-09-07] MEDS ORDERED: FUROSEMIDE 40 MG/4 ML INJECTABLE VIAL IVPUSH SCH (10:00)
[2018-09-07] MEDS ORDERED: ASPIRIN 81 MG CHEWABLE TABLETS PO SCH (10:00)
[2018-09-07] MEDS ORDERED: CHOLECALCIFEROL (VIT D3) 1,000 UNIT (25 MCG) TABLET PO SCH (10:00)
[2018-09-07] MEDS ORDERED: TIOTROPIUM BROMIDE 2.5 MCG (SPIRIVA) RESPIMAT INHALER IH SCH (10:00)
[2018-09-07] MEDS ORDERED: metoPROLOL SUCCINATE 25 MG TAB.SR.24H (FP) PO SCH (10:00)
[2018-09-07] MEDS ORDERED: FOLIC ACID 1 MG TABLET (FP) PO SCH (10:00)
--- NOTE | 2018-09-07 10:47 | ECHO ---
Name: GENESIS FIOREO Exam:Adult Echocardiogram Study Date: 09/07/2018 08:36 AM Age: 88 yrs Reason For Study: ef chf non stemi Height: 71 in Weight: 173 lb BSA: 2.0 m2 MMode/2D Measurements & Calculations IVSd: 0.78 cm Ao root diam: 3.2 cm LVIDd: 5.9 cm LA dimension: 3.4 cm LVIDs: 4.1 cm LVPWd: 0.86 cm LVPWs: 1.3 cm EDV(Teich): 170.3 ml ESV(Teich): 75.9 ml LVOT diam: 2.1 cm Doppler Measurements & Calculations MV E max daryl: 79.0 cm/sec Ao V2 max: 275.7 cm/sec MV A max daryl: 138.8 cm/sec Ao max P.4 mmHg MV E/A: 0.57 Ao V2 mean: 180.6 cm/sec Ao mean P.2 mmHg Ao V2 VTI: 56.8 cm DEBBIE(I,D): 1.0 cm2 AI P1/2t: 305.8 msec DEBBIE(V,D): 1.2 cm2 AI max daryl: 274.2 cm/sec LV V1 max P.3 mmHg AI max P.1 mmHg LV V1 mean P.8 mmHg AI dec slope: 262.6 cm/sec2 LV V1 max: 91.3 cm/sec LV V1 mean: 60.7 cm/sec LV V1 VTI: 16.7 cm MR max daryl: 439.4 cm/sec SV(LVOT): 59.3 ml MR max P.2 mmHg PA V2 max: 117.1 cm/sec Med Peak E' Daryl: 5.0 cm/sec PA max P.6 mmHg Med E/e': 15.7 Lat Peak E' Daryl: 8.3 cm/sec Lat E/e': 9.5 Left Ventricle Ejection Fraction = 25-30%. Left ventricular systolic function is severely reduced. Severe hypokinesi s of the septum, lateral wall and anterior wall. Right Ventricle The right ventricle is normal in size and function. Atria Normal left and right atrial size and function. Mitral Valve The mitral valve is normal in structure and function. There is no mitral valve stenosis. There is mil d mitral regurgitation. Tricuspid Valve The tricuspid valve is normal in structure and function. There is mild tricuspid regurgitation. Aortic Valve Mild valvular aortic stenosis. Mild aortic regurgitation. Pulmonic Valve The pulmonic valve is not well seen, but is grossly normal. There is no pulmonic valvular stenosis. Great Vessels The aortic root is normal size. Pericardium/Pleura There is no pericardial effusion. Interpretation Summary Ejection Fraction = 25-30%. Left ventricular systolic function is severely reduced. Severe hypokinesis of the septum, lateral wall and anterior wall. The right ventricle is normal in size and function. There is mild mitral regurgitation. There is mild tricuspid regurgitation. Mild valvular aortic stenosis. Mild aortic regurgitation. There is no pericardial effusion. MD Rosa *Moni 09/07/2018 10:47 AM
[2018-09-07] MEDS ORDERED: INSULIN (NOVOLOG) ASPART 100 UNITS/ML 10ML VIAL ONE (12:19)
[2018-09-07 12:20] LABS: INR 1.08 (0.83-1.09); PROTHROMBIN TIME (PATIENT) 12.8 SEC (9.7-13.0)
--- NOTE | 2018-09-07 12:43 | CONSULT ---
Consult - text type - Consultation Consultation Note: Renal Consult for CKD This is a 88 year old gentleman with hx of CKD (Cr 1.9-1.8), CAD s/p PCI, COPD, AAA s/p repair, Hyperlipidemia who presented tot the ED with complaints of SOB and admitted with CHF exacerbation and noted to have Cr of 1.9. Pt follows with Dr. Clarke Coronel for his CKD. Reprots that he is making urine. Denies any leg swelling. Denies any NSAID use, flank pain, dysuria or hematuria. No change in urine output noted. 2nd set of troponins noted to be elevated. Renal function stable the first 24 hours. PMhx: as above Allergies: PCN Social Hx: + Tobacco Family Hx: NC ROS: as per HPI, all other pertinent ros negative Home Medications Medication Instructions Recorded Aspirin [ASA -] 81 mg PO DAILY 11/28/14 Atorvastatin Ca [Lipitor] 40 mg PO HS 11/28/14 Losartan Potassium 25 mg PO DAILY 11/28/14 Metoprolol Succinate [Toprol XL -] 25 mg PO DAILY 11/28/14 Tamsulosin HCl [Flomax -] 0.4 mg PO DAILY 11/28/14 Tiotropium [place] [Spiriva] 18 mcg IH DAILY 11/28/14 Cilostazol [Pletal] 100 mg PO BID 01/05/15 Albuterol Sulfate Inhaler - 1 - 2 inh PO Q4H 08/31/17 [Ventolin HFA Inhaler -] Cholecalciferol (Vitamin D3) 2,000 unit PO DAILY 08/31/17 [Vitamin D3] Fluticasone/Salmeterol [Advair 1 each IH BID 08/31/17 250-50 Diskus] Folic Acid 1 mg PO DAILY 08/31/17 Furosemide [Lasix] 20 mg PO ASDIR 08/31/17 Albuterol 0.083% Nebulizer [place] 1 amp NEB RQID amp 09/07/17 [Ventolin 0.083% Nebulizer Soln -] Vital Signs Temperature 97.9 F 09/07/18 01:24 Pulse Rate 96 H 09/07/18 10:00 Respiratory Rate 26 H 09/07/18 10:00 Blood Pressure 116/75 09/07/18 10:00 O2 Sat by Pulse Oximetry (%) 98 09/07/18 10:00 Intake & Output 09/04/18 09/05/18 09/06/18 09/07/18 23:59 23:59 23:59 23:59 Intake Total 360 240 Output Total 1500 1000 Balance -1140 -760 Weight 77.564 kg 78.562 kg NAD awake and alert neck supple RRR, no M/R + rales at lung bases soft NT/ND no bladder distension no LE edema, clubbing or cyanosis no focal neurologic deficits CBC, BMP 09/07/18 05:20 09/07/18 05:20 Current Medications Albuterol Sulfate (Ventolin 0.083% Nebulizer Soln -) 1 amp NEB Q4H PRN PRN Reason: SHORT OF BREATH/WHEEZING Last Admin: 09/07/18 03:38 Dose: 1 amp Albuterol Sulfate (Ventolin 0.083% Nebulizer Soln -) 1 amp NEB RQID [facility] Last Admin: 09/07/18 11:01 Dose: 1 amp Albuterol Sulfate (Ventolin Hfa Inhaler -) 2 puff IH Q4H PRN PRN Reason: WHEEZING Aspirin (Asa -) 81 mg PO DAILY [facility] Last Admin: 09/07/18 09:42 Dose: 81 mg Atorvastatin Calcium (Lipitor -) 40 mg PO HS [facility] Last Admin: 09/06/18 22:01 Dose: 40 mg Budesonide/Formoterol Fumarate (Symbicort 80/4.5mcg -) 2 puff IH BID [facility] Last Admin: 09/07/18 09:46 Dose: 2 puff Cholecalciferol (Vitamin D3 -) 2,000 unit PO DAILY [facility] Last Admin: 09/07/18 09:43 Dose: 2,000 unit Cilostazol (Pletal -) 100 mg PO BID [facility] Last Admin: 09/07/18 09:45 Dose: 100 mg Folic Acid (Folic Acid -) 1 mg PO DAILY [facility] Last Admin: 09/07/18 09:43 Dose: 1 mg Furosemide (Lasix Injection -) 40 mg IVPUSH DAILY [facility] Last Admin: 09/07/18 09:43 Dose: 40 mg Heparin Sodium (Porcine) (Heparin -) 5,000 unit IVPUSH PRN PRN PRN Reason: Heparin Heparin Sodium (Porcine) (Heparin -) 1,000 unit IVPUSH PRN PRN PRN Reason: Heparin Heparin Sodium/Dextrose (Heparin Infusion -) 25,000 units in 500 mls @ 16 mls/ hr IVPB TITR [facility]; Protocol Last Admin: 09/07/18 09:41 Dose: 800 units/hr, 16 mls/hr Insulin Aspart (Novolog Vial Sliding Scale -) 1 vial SQ ACHS [facility]; Protocol Last Admin: 09/07/18 12:22 Dose: 4 units Losartan Potassium (Cozaar -) 25 mg PO DAILY [facility] Last Admin: 09/07/18 09:42 Dose: 25 mg Methylprednisolone Sodium Succinate (Solu-Medrol -) 40 mg IVPUSH Q6H-IV [facility] Last Admin: 09/07/18 09:42 Dose: 40 mg Metoprolol Succinate (Toprol Xl -) 25 mg PO DAILY [facility] Last Admin: 09/07/18 09:43 Dose: 25 mg Tamsulosin HCl (Flomax -) 0.4 mg PO DAILY [facility] Last Admin: 09/07/18 09:42 Dose: 0.4 mg Tiotropium [place] (Spiriva Respimat) 2 puff IH DAILY [facility] Last Admin: 09/07/18 09:46 Dose: 2 puff 88 year old gentleman with hx of CKD (Cr 1.9-1.8), CAD s/p PCI, COPD, AAA s/p repair, Hyperlipidemia who presented tot the ED with complaints of SOB and admitted with CHF exacerbation and noted to have Cr of 1.9. #CKD stage 4 #CHF exacerbation #R/o ACS #COPD #Contrast nephropathy risk stratification Renal function stable at at baseline Continue Losartan and Lasix IV for fluid management no hyperkalemia/acidosis noted pt to be transferred for possible cardiac cath contrast nephropathy risk is 57% and risk of immediate dialysis is 12.6% ( Kurt Post PCI contrast nephropathy calculator) would hold IV lasix prior to contrast exposure no IVF as pt is fluid overloaded can given Mucomyst PO if pt is to have contrast exposure will need close monitoring of renal function following. Thank you Jorge Corado DO
[2018-09-07] MEDS: ACETYLCYSTEINE 20% 200MG/ML 30 ML VIAL *FOR ORAL / INH USE ONLY PO SCH (14:37)
[2018-09-07 19:06] VITALS: PULSE 94
[2018-09-07] MEDS: ATORVASTATIN CA 40 MG TABLET (FP) PO SCH (21:14)
[2018-09-07 22:26] VITALS: BP 109/60; TEMP 98.4
[2018-09-08] MEDS: ACETYLCYSTEINE 20% 200MG/ML 30 ML VIAL *FOR ORAL / INH USE ONLY PO SCH (01:13)
[2018-09-08] MEDS: methylPREDNISolone NA SUCC 40 MG/1 ML VIAL IVPUSH SCH (01:14)
--- NOTE | 2018-09-08 01:51 | PROC ---
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
--- NOTE | 2018-09-08 04:26 | DS ---
Physical Examination Vital Signs: Vital Signs Temperature 98.4 F 09/07/18 22:00 Pulse Rate 94 H 09/07/18 22:00 Respiratory Rate 22 H 09/07/18 22:00 Blood Pressure 109/60 09/07/18 22:00 O2 Sat by Pulse Oximetry (%) 93 L 09/07/18 21:00 Findings/Remarks: I was called at home by hospitalist around 2.30am that patient coded and . I d/w hospitalist, nurse and Nursing supervisor aluminum boat assembly. Pt's son Topher was called and informed and coming to the hospital. 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 I met and d/w pt's son Dayron at bedside around 5 am; he mentioned his brother Topher will arrive to the hospital too around 6 am. Pt's is in [facility] currently. Labs: CBC, BMP 09/07/18 05:20 09/07/18 05:20 Discharge Summary Reason For Visit: RESPIRATORY DISTRESS Current Active Problems COPD (chronic obstructive pulmonary disease) (Acute) ASHD CHF RI CRF Procedures: Principal: 88 YOM ASHD with systolic dysfunction, COPD, CRF admitted with respiratory distress and positive CE troponins; ARF / CRF. Pt was seen previously by cardiology dr Werner; his PCP is not on staff at [facility]. Other Procedures: pt was admitted to telemetry, seen by cardiology, pulmonary and renal; diuresed with iv lasix, also received plavix po and IV heparin for ACSd and IV steroids for COPD exac / SOB; placed on BIpap initially then switched to O2 NC; also received acetylcysteine in anticipation for cardiac cath. Hospital Course: Initially improved with the above treatment and stable on telemetry. Pt was waiting to be transferred to [facility] pending bed availability; during last night he had a bradycardic / hypotensive episode after going to the bathroom, became pulseless, was resuscitated unsuccessfully and . Condition: - Instructions Disposition: - Home Medications Comprehensive Discharge Medication List: Ambulatory Orders Aspirin [ASA -] 81 mg PO DAILY 11/28/14 Atorvastatin Ca [Lipitor] 40 mg PO HS 11/28/14 Losartan Potassium 25 mg PO DAILY 11/28/14 Metoprolol Succinate [Toprol XL -] 25 mg PO DAILY 11/28/14 Tamsulosin HCl [Flomax -] 0.4 mg PO DAILY 11/28/14 Tiotropium [place] [Spiriva] 18 mcg IH DAILY 11/28/14 Cilostazol [Pletal] 100 mg PO BID 01/05/15 Albuterol Sulfate Inhaler - [Ventolin HFA Inhaler -] 1 - 2 inh PO Q4H 08/31/17 Cholecalciferol (Vitamin D3) [Vitamin D3] 2,000 unit PO DAILY 08/31/17 Fluticasone/Salmeterol [Advair 250-50 Diskus] 1 each IH BID 08/31/17 Folic Acid 1 mg PO DAILY 08/31/17 Furosemide [Lasix] 20 mg PO ASDIR 08/31/17 Albuterol 0.083% Nebulizer [place] [Ventolin 0.083% Nebulizer Soln -] 1 amp NEB RQID amp 09/07/17
--- NOTE | 2018-09-08 06:47 | RAPID ---
Physical Examination Vital Signs: Vital Signs Temperature 98.4 F 09/07/18 22:00 Pulse Rate 94 H 09/07/18 22:00 Respiratory Rate 22 H 09/07/18 22:00 Blood Pressure 109/60 09/07/18 22:00 O2 Sat by Pulse Oximetry (%) 93 L 09/07/18 21:00 Labs: CBC, BMP 09/07/18 05:20 09/07/18 05:20 Rapid Response - Rapid Response Assessment: Rapid response called to 4 west. Patient was noted to be unresponsive and pulse was not appreciated. Code 99 called. ACLS protocol initiated. Please see code sheet for further details. Time of called at 2:20am. Family was attempted to be notified but has no response. Dr. Wu made aware.
--- NOTE | 2018-09-08 14:44 | EKG ---
Test Reason : Blood Pressure : / mmHG Vent. Rate : 096 BPM Atrial Rate : 096 BPM P-R Int : 150 ms QRS Dur : 120 ms QT Int : 386 ms P-R-T Axes : 072 -05 068 degrees QTc Int : 487 ms NORMAL SINUS RHYTHM LEFT VENTRICULAR HYPERTROPHY WITH QRS WIDENING AND REPOLARIZATION ABNORMALITY ABNORMAL ECG WHEN COMPARED WITH ECG OF 06-SEP-2018 08:24, CRITERIA FOR ANTEROSEPTAL INFARCT ARE NO LONGER PRESENT Confirmed by MD LORRIE, NEYDA ([id number]) on 09/08/2018 2:43:53 PM Referred By: [facility] Confirmed By:NEYDA ANDREW MD
== END 2018-09-08 02:00 | disposition expired ==
LOC: JER 07:39 → UNDOADMIN 08:55 → JERBED 08:55 → J4W 17:28
PROVIDERS: ADMIT Specialist; ATTEND Specialist
PROC: 5A1935Z Respiratory Ventilation, Less than 24 Consecutive Hours (ICD-10-PCS; principal; 2018-09-08)
PROC: 0BH17EZ Insertion of Endotracheal Airway into Trachea, Via Natural or Artificial Opening (ICD-10-PCS; 2018-09-08)
PROC: 5A12012 Performance of Cardiac Output, Single, Manual (ICD-10-PCS; 2018-09-08)
DX: I21.4 Non-ST elevation (NSTEMI) myocardial infarction (principal); J96.21 Acute and chronic respiratory failure with hypoxia; I50.43 Acute on chronic combined systolic (congestive) and diastolic (congestive) heart failure; N18.4 Chronic kidney disease, stage 4 (severe); J44.1 Chronic obstructive pulmonary disease with (acute) exacerbation; N17.9 Acute kidney failure, unspecified; I25.10 Atherosclerotic heart disease of native coronary artery without angina pectoris; J44.9 Chronic obstructive pulmonary disease, unspecified; I50.9 Heart failure, unspecified; I46.9 Cardiac arrest, cause unspecified; R00.1 Bradycardia, unspecified; I95.9 Hypotension, unspecified; Z98.61 Coronary angioplasty status; E78.5 Hyperlipidemia, unspecified; I71.4 Abdominal aortic aneurysm, without rupture; N40.0 Benign prostatic hyperplasia without lower urinary tract symptoms
CPT/HCPCS: 36415; 36600; 71045-TC-FY; 80053; 82375; 82550; 82553; 82803; 82962; 83050; 83880; 84443; 84484; 85025; 85610; 85730; 93005; 93010; 93306-TC; 94640; 94660; 99284-25; J1644